=== PATIENT | male | born 1935 | race Caucasian/White ===

== ENCOUNTER → 2016-11-02 | Outpatient (CLI) | payer MEDICARE, BC ==
--- NOTE | 2016-11-02 12:59 | CT ---
EXAMINATION TYPE: CT lumbar spine wo con DATE OF EXAM: 11/02/2016 10:31 AM COMPARISON: Prior CT lumbar spine 2015 HISTORY: pain CT DLP: 2558.5 mGycm Automated exposure control for dose reduction was used. An unenhanced CT of the lumbar spine was performed. Bone and soft tissue window settings are submitt ed as well as coronal and sagittal reconstructions. FINDINGS: Scoliotic curvature is again seen, there is multilevel spondylosis as well as loss of disc height, as sociated vacuum phenomenon at L4-5 and L5-S1 and L2-3. L1-L2: Minimal posterior broad-based disc bulge causes slight anterior mass effect on the thecal sac. Scoliotic curvature contributes to cause left-sided foraminal encroachment. No significant central s tenosis. L2-L3: Circumferential extension of endplate disc complex results in foraminal encroachment greater o n the left is likely contributed by the scoliosis. Broad-based posterior disc bulge causes slight ant erior mass effect on the thecal sac. No significant central stenosis. L3-L4: Posterior broad-based disc bulge causes slight anterior mass effect on the thecal sac. There i s some left-sided foraminal encroachment due to lateral extension of endplate disc complex. No signif icant central stenosis. L4-L5: Broad-based posterior disc bulge causes anterior mass effect on the thecal sac. Facet arthropa thy with hypertrophy of ligamentum flavum results in mild central canal stenosis. There is some right -sided foraminal encroachment due to the spinal curvature. L5-S1: Posterior extension of endplate disc complex causes anterior mass effect on the thecal sac and possibly contacting the proximal S1 nerve roots. On mild central stenosis. Circumferential extension of endplate disc complex is results in bilateral foraminal encroachment. Nonobstructive punctate renal calcifications are present bilaterally measuring only 3 to 4 mm. IMPRESSION: No paraspinal masses are identified. Lumbar segments are intact. Degenerative disc disease, scoliosi s, facet arthropathy, multilevel foraminal encroachment and mild central canal stenosis L4-5. Nonobst ructive bilateral nephrolithiasis.
== END | disposition home or self-care (01) ==
LOC: RADCTMAIN 10:09
PROVIDERS: ATTEND Neurological Surgery
DX: M51.36 Other intervertebral disc degeneration, lumbar region (principal); M41.9 Scoliosis, unspecified; M46.96 Unspecified inflammatory spondylopathy, lumbar region; M48.06 Spinal stenosis, lumbar region
CPT/HCPCS: 72131

== ENCOUNTER → 2017-01-16 | Outpatient (CLI) | payer MEDICARE, BC ==
--- NOTE | 2017-01-16 13:33 | XR ---
EXAMINATION TYPE: XR chest 2V DATE OF EXAM: 01/16/2017 COMPARISON: Prior chest x-ray 09/18/[address] 09/18/2015 HISTORY: Preop, Z01.818 TECHNIQUE: Frontal and lateral views of the chest are obtained. FINDINGS: Patient is post median sternotomy. Intracardiac defibrillator lead present within the righ t ventricle. There is no pneumothorax or pleural effusion. Prominent lung volumes suggest underlying COPD. No evident pneumonia. The exam is rotated. There is improvement in the interstitium. IMPRESSION: No acute cardiopulmonary process. Cardiomegaly. Improvement in volume status. Emphysema. Additional findings above.
== END ==
LOC: RADXRMAIN 11:40
PROVIDERS: ATTEND Neurological Surgery
DX: Z01.818 Encounter for other preprocedural examination (principal)
CPT/HCPCS: 71020

== ENCOUNTER → 2017-06-05 | Outpatient (CLI) | payer MEDICARE, BC ==
--- NOTE | 2017-06-05 13:09 | CT ---
EXAMINATION TYPE: CT shoulder LT wo con DATE OF EXAM: 06/05/2017 COMPARISON: NONE HISTORY: Patient complains of increasing left shoulder pain and reduced range of motion. Patient lewis s not recall any injury. CT DLP: 732.1 mGycm Automated exposure control for dose reduction was used. Axial images were obtained at 3 mm thick sections. Reconstructed images in the coronal and sagittal p griffin are obtained at 2 mm thick sections. Three-D reconstructed images are performed. FINDINGS: The humeral head articulates with the glenoid. No acute fractures are evident. The acromioclavicular junction has minimal hypertrophy. There is narrowing of the joint space suggestive for osteoarthritic degenerative change. Electronic d evice overlies left chest. IMPRESSION: CHRONIC DEGENERATIVE CHANGES WITH OSTEOARTHRITIC DEGENERATIVE TYPE CHANGE AT THE GLENOHUMERAL JUNCTIO N.
== END | disposition home or self-care (01) ==
LOC: RADCTMAIN 12:05
PROVIDERS: ATTEND Orthopaedic Surgery
DX: M19.012 Primary osteoarthritis, left shoulder (principal)

== ENCOUNTER → 2017-08-21 | Outpatient (CLI) | payer MEDICARE, BC ==
[2017-08-21 12:30] LABS: Basophils # (A) 0.1 k/uL (0-0.2); Basophils % (A) 1 %; Eosinophils # (A) 0.2 k/uL (0-0.7); Eosinophils % (A) 1 %; HCT 34.9 % (39.0-53.0); Hypochromasia Slight; Lymphocytes # (A) 1.3 k/uL (1.0-4.8); Lymphocytes % (A) 9 %; MCHC 31.5 g/dL (31.0-37.0); MCV 92.3 fL (80.0-100.0); Mean Platelet Volume 8.7; Monocytes # (A) 1.6 k/uL (0-1.0); Monocytes % (A) 11 %; Neutrophils # (A) 10.2 k/uL (1.3-7.7); Neutrophils % (A) 74 %; Platelet Count 179 k/uL (150-450); RBC 3.78 m/uL (4.30-5.90); RDW 15.4 % (11.5-15.5); WBC 13.8 k/uL (3.8-10.6)
[2017-08-21 12:48] LABS: Albumin 3.9 g/dL (3.5-5.0); Calcium 9.3 mg/dL (8.4-10.2); Potassium 5.4 mmol/L (3.5-5.1); Total Bilirubin 0.5 mg/dL (0.2-1.3); Total Protein 6.3 g/dL (6.3-8.2)
== END | disposition home or self-care (01) ==
LOC: LABWHC1 12:00
PROVIDERS: ATTEND Nurse Practitioner Adult Health
DX: E78.2 Mixed hyperlipidemia (principal); I25.5 Ischemic cardiomyopathy; B89 Unspecified parasitic disease; I48.0 Paroxysmal atrial fibrillation
CPT/HCPCS: 36415; 80053; 80061; 84443; 85025

== ENCOUNTER → 2017-10-18 | Outpatient (CLI) | payer MEDICARE, BC ==
--- NOTE | 2017-10-20 07:23 | PE ---
EXAMINATION TYPE: PET CT fusion skull to thigh DATE OF EXAM: 10/18/2017 CLINICAL HISTORY: 82-year-old male restaging esophageal cancer. Patient with surgery in 2014. TECHNIQUE: Following the intravenous administration of 10.03 mCi of F-18 FDG, whole body images are performed from the skull base to the midthigh. Images are reviewed on the computer in the coronal, axial, and sagittal planes. Reconstructed rotating images are created on independent workstation and reviewed on the computer. A localization and attenuation correction CT is performed in conjunction with the PET scan. Glucose level: 99 mg/dL CTDI: 5.14 mGy DLP: 457.78 mGy-cm COMPARISON: CT abdomen and pelvis 04/25/2017. FINDINGS: PET: Physiologic pharyngeal uptake. Linear areas of left paraspinal muscular activity. Uptake in both shou lders likely on a degenerative basis. Physiologic FDG uptake within the chest. Heterogeneous liver uptake likely normal variation. Average liver SUV 3.1. Nonspecific focus of fat stranding in the left upper quadrant mesentery is stable from 04/25/2017 and shows no FDG uptake. Variable mild to moderate bowel uptake likely physiologic muscular activity. Mild uptake associated with chronic anterior abdominal wall thickening especially along the lower pel vis related to mesh repair and scarring. There is focal activity at the hamstrings origins and at the gluteal insertion as well as the right r ectus femoris origin. Variable bowel uptake likely Hologic muscular activity. Variable mild to moderate uptake throughout the spine likely on a degenerative basis. ATTENUATION CORRECTION CT: Visualized paranasal sinuses and mastoid air cells are well pneumatized. Suspect attenuation artifact s related to extensive dental amalgam. No cervical lymphadenopathy. Left anterior chest wall AICD generator with right ventricular lead. Median sternotomy wires are pres ent with post-CABG changes. Heart is mildly enlarged without pericardial effusion. Ascending aorta is ectatic at 3.7 cm. Mild atherosclerotic arch calcifications. Conventional arch vessel branching chloe sam. No thoracic lymphadenopathy. Prominent respiratory motion artifact in the lower lungs limiting assessment. Mild emphysema and mild diffuse bronchial wall thickening. No consolidation or pleural ef fusion. Cholecystectomy clips. Redemonstrated epigastric ventral abdominal wall hernia mesh repair. There is persistent hernia containing the gastric antrum that remains contained by anterior mesh material whic h is bulged forward. The hernia extends upward anterior to the xiphoid process. No obstructive or inf lammatory changes seen. A second hernia of the periumbilical region also remains enclosed by mesh material and contains short segment of small bowel. No dilated small bowel, free fluid, or free air. Punctate 2 mm nonobstructiv e right renal calculus. Scattered mild stool burden. Mild left hemicolonic diverticulosis especially in the sigmoid colon. Bladder is urine distended. Pelvic phleboliths. No abnormal fluid collection in the pelvis or pelvic lymphadenopathy. Prostate gland is enlarged measuring 5.3 cm wide. Bones: Mild degenerative changes at the hips. Additional degenerated dextro convex curvature of the l umbar spine. No osseous destructive process seen. IMPRESSION: 1. No findings of neoplastic recurrence along the esophagus and no evidence for metastatic disease. 2. Variable musculoskeletal FDG uptake in the pelvis relating to right-sided rectus femoris tendinosi s, bilateral gluteal insertional tendinosis/trochanteric bursitis, and hamstrings origin tendinosis. Also, mild to moderate degenerative uptake along the spine. 3. Incidental: Prior ventral abdominal wall mesh repair. There are 2 residual hernias, one in the epi gastric region and one in the periumbilical region containing a portion of the gastric antrum and a s mall bowel loop, respectively. These remain confined by anterior mesh material, unchanged from 017. 4. COPD with mild emphysema, sigmoid diverticulosis, and prostatomegaly (5.3 cm wide).
== END | disposition home or self-care (01) ==
LOC: RADPETMAIN 10:40
PROVIDERS: ATTEND Internal Medicine
DX: C15.9 Malignant neoplasm of esophagus, unspecified (principal); J43.9 Emphysema, unspecified; K57.30 Diverticulosis of large intestine without perforation or abscess without bleeding; N40.0 Benign prostatic hyperplasia without lower urinary tract symptoms; K44.9 Diaphragmatic hernia without obstruction or gangrene; K42.9 Umbilical hernia without obstruction or gangrene
CPT/HCPCS: 78815; A9552

== ENCOUNTER 2017-10-22 19:07 | Emergency (ER) | payer MEDICARE, BC ==
[2017-10-22 19:21] VITALS: RESP 18; TEMP 97.6
--- NOTE | 2017-10-22 20:18 | ED ---
ENT HPI - General Chief complaint: Dental/Oral Stated complaint: Blood coming from mouth Time Seen by Provider: 10/22/17 19:23 Source: patient, RN notes reviewed Mode of arrival: ambulatory Limitations: no limitations - History of Present Illness Initial comments: This is an 82-year-old male who presents to the emergency department with chief complaint of blood coming from the mouth. Patient states that at 4:30 he developed some bleeding in his mouth. He states that he spit it out into a napkin and then it continued to drain out onto his shirt. Patient denies any recent dental procedures or tooth pain. He states that when he spit the blood he noticed some clots. He does admit to being on Eliquis. Has no other complaints. Denies fever, chills, chest pain, shortness of breath, abdominal pain, nausea or vomiting, constipation or diarrhea, dysuria or hematuria, numbness or tingling, headache or vision changes. - Related Data Home Medications Medication Instructions Recorded Confirmed Loratadine [Claritin] 10 mg PO DAILY 11/18/13 10/22/17 Montelukast Sodium [Singulair] 10 mg PO HS 11/18/13 10/22/17 Simvastatin [Zocor] 20 mg PO HS 11/18/13 10/22/17 Cholecalciferol [Vitamin D3] 2,000 unit PO DAILY 09/18/15 10/22/17 Fenofibrate,Micronized 134 mg PO DAILY 09/18/15 10/22/17 [Fenofibrate] Furosemide [Lasix] 20 mg PO DAILY 09/18/15 10/22/17 Lansoprazole 30 mg PO HS 09/18/15 10/22/17 Aspirin EC [Ecotrin Low Dose] 81 mg PO HS 06/19/16 10/22/17 Carvedilol [Coreg] 6.25 mg PO BID 06/19/16 10/22/17 Hydrocodone/Acetaminophen [[place] 1 tab PO Q6H PRN 06/19/16 10/22/17 10-325] Folic Acid 1 mg PO DAILY 04/25/17 10/22/17 Docusate [Colace] 100 mg PO DAILY 06/14/17 10/22/17 Spironolactone [Aldactone] 25 mg PO DAILY 06/14/17 10/22/17 Amiodarone [Cordarone] 400 mg PO DAILY 10/22/17 10/22/17 Levothyroxine Sodium [Synthroid] 100 mcg PO DAILY 10/22/17 10/22/17 Previous Rx's Medication Instructions Recorded Ramipril [Altace] 5 mg PO DAILY #30 cap 11/09/14 Apixaban [Eliquis] 5 mg PO BID #60 tab 06/19/17 Allergies Allergy/AdvReac Type Severity Reaction Status Date / Time lorazepam [From Ativan] AdvReac Intermediate agitated Verified 10/22/17 19:45 Review of Systems ROS Statement: Those systems with pertinent positive or pertinent negative responses have been documented in the HPI. ROS Other: All systems not noted in ROS Statement are negative. Past Medical History Past Medical History: Asthma, Blood Disorder, Coronary Artery Disease (CAD), Cancer, Heart Failure, GERD/Reflux, Hyperlipidemia, Hypertension, Myocardial Infarction ([place]), Sleep Apnea/CPAP/BIPAP, Supraventricular Tachycardia (SVT), Vascular Disorder Additional Past Medical History / Comment(s): PEG pt uses no device, ischemic cardiomyopathy, decreased circulation to legs, esophageal cancer with surgery, paroxysmal SVT, anemia, diverticular dx, hiatal hernia, chronic low baci pain especially if stands/sits too long, abdominal cellulitis, skin cancer with removal. Last Myocardial Infarction Date:: 1994 History of Any Multi-Drug Resistant Organisms: MRSA Date of last positivie culture/infection: 2012 (per patient MRSA 4 to 5 years ago) MDRO Source:: Unknown Past Surgical History: AICD, Appendectomy, Bowel Resection, Cholecystectomy, Coronary Bypass/CABG, Heart Catheterization, Hernia Repair Additional Past Surgical History / Comment(s): Bowel resections x 2 for obstructions, AICD/pacer, 4vessel CABG, laser spine surgery to low back, colonoscopies, benign polypectomy, multiple abdominal hernia repairs, EGDs q 3 months, abdominal wall seroma removed, skin cancer removals. Past Anesthesia/Blood Transfusion Reactions: No Reported Reaction Type of Cardiac Device: Permanent Pacemaker, AICD Device Placement Date:: 2010 Past Psychological History: No Psychological Hx Reported Smoking Status: Former smoker Past Alcohol Use History: None Reported Past Drug Use History: None Reported - Past Family History Father Family Medical History: Myocardial Infarction ([place]) Additional Family Medical History / Comment(s): Father of a [place] at the age of 73 yrs. Mother Family Medical History: CVA/TIA Additional Family Medical History / Comment(s): Mother of a CVA in her early 80s. General Exam - General Exam Comments Initial Comments: General: Awake and alert, well-developed; in no apparent distress. Pleasant and cooperative. is at bedside. HEENT: Head atraumatic, normocephalic. Pupils are equal, round and reactive to light. Extraocular movements intact. Oropharynx moist without erythema or exudate. Small superficial abrasion noted on hard palate directly behind teeth #8 and 9. This area is actively bleeding. Neck: Supple. Normal ROM. Cardiovascular: Regular rate and rhythm. No murmurs, rubs or gallops. Chest symmetrical. Respiratory: Lungs clear to auscultation bilaterally. No wheezes, rales or rhonchi. Normal respiratory effort with no use of accessory muscles. Musculoskeletal: Normal ROM, no tenderness bilateral upper and lower extremities. Ambulating normally. Skin: [place], warm and dry without rashes or lesions. Neurological: Alert and oriented x3. CN II-XII grossly intact. Speech is fluent and answers are appropriate. No focal neuro deficits. Psychiatric: Normal mood and affect. No overt signs of depression or anxiety noted. Limitations: no limitations Course Vital Signs 10/22/17 19:18 Temperature 97.6 F Pulse Rate 67 Respiratory 18 Rate Blood Pressure 110/57 O2 Sat by Pulse 96 Oximetry Medical Decision Making - Medical Decision Making This is an 82-year-old male who is currently on Elquis who presents to the emergency department with chief complaint of mouth bleeding. On physical examination, there is a small superficial abrasion on the hard palate of patient 's mouth. Firm pressure was applied for 15 minutes and bleeding did stop. I provided patient with gauze as well as recommendation to use a tea bag if bleeding does recur. Patient's vital signs are stable and he is in no acute distress. He will be discharged home at this time. He is in agreement and voices understanding. All questions were answered. Disposition Clinical Impression: Abrasion of oral cavity Disposition: HOME SELF-CARE Condition: Good Instructions: Abrasion (ED), Blood Thinners (ED) Additional Instructions: If bleeding recurs, please hold firm pressure to the site of bleeding for 10-15 minutes. May also use a tea bag. Please follow up with primary care provider within 1-2 days. Return to emergency department if symptoms should worsen or any concerns arise. Referrals: Michael Menon MD [Primary Care Provider] - 1-2 days Time of Disposition: 20:34
[2017-10-22 20:59] VITALS: BP 119/63; PULSE 66
== END 2017-10-22 20:58 | disposition home or self-care (01) ==
LOC: EC 19:07
DX: S00.512A Abrasion of oral cavity, initial encounter (principal); J45.909 Unspecified asthma, uncomplicated; I25.10 Atherosclerotic heart disease of native coronary artery without angina pectoris; I11.0 Hypertensive heart disease with heart failure; I50.9 Heart failure, unspecified; E78.5 Hyperlipidemia, unspecified; K21.9 Gastro-esophageal reflux disease without esophagitis; I10 Essential (primary) hypertension; I25.2 Old myocardial infarction; G47.30 Sleep apnea, unspecified; D64.9 Anemia, unspecified; Z87.891 Personal history of nicotine dependence; Z79.82 Long term (current) use of aspirin; Z79.01 Long term (current) use of anticoagulants; Z79.899 Other long term (current) drug therapy; Z88.8 Allergy status to other drugs, medicaments and biological substances
CPT/HCPCS: 99282

== ENCOUNTER → 2017-11-13 | Outpatient (CLI) | payer MEDICARE, BC ==
--- NOTE | 2017-11-13 19:51 | CT ---
EXAMINATION TYPE: CT lumbar spine wo con DATE OF EXAM: 11/13/2017 7:25 PM COMPARISON: 11/02/2016 HISTORY: Low back pain and bilateral leg numbness. CT DLP: 1944 mGycm Automated exposure control for dose reduction was used. Unenhanced CT of the lumbar spine was performed. Bone and soft tissue window settings are submitted as well as coronal and sagittal reconstructions. There is a upper lumbar mild dextroscoliosis. There is a lower lumbar mild levoscoliosis. There is de generative disc space narrowing throughout the lumbar spine with spurring of the endplates. There is no compression fracture. There is multilevel hypertrophic facet arthropathy. I see no significant spi nal stenosis. There is developmentally adequate spinal canal. There is posterior endplate spur format ion throughout the lumbar spine without significant encroachment on the spinal canal. There is narrow ing of the right side L4-5 neural foramen due to lateral disc herniation. There is also narrowing of L2-3 neural foramen on the left side due to lateral disc herniation. There is no lumbar paraspinal ma ss. Sacroiliac joints are intact. I see no focal bone destruction.. IMPRESSION: Multilevel spondylosis. Scoliotic deformity. Lateral disc herniations as above with neural foraminal impingement. No fracture. No significant change compared to old exam.
== END | disposition home or self-care (01) ==
LOC: RADCTMAIN 18:48
PROVIDERS: ATTEND Physical Medicine & Rehabilitation
DX: M51.16 Intervertebral disc disorders with radiculopathy, lumbar region (principal); M47.26 Other spondylosis with radiculopathy, lumbar region; M41.26 Other idiopathic scoliosis, lumbar region
CPT/HCPCS: 72131

== ENCOUNTER 2017-12-09 04:56 | Inpatient (IN) | payer MEDICARE, BC ==
[2017-12-09] MEDS ORDERED: methylPREDNISolone SOD SUCCI 125 MG/2 ML VIAL IV STA (04:58)
[2017-12-09] MEDS ORDERED: IPRATROPIUM 0.5 MG/2.5 ML NEBU INHALATION STA (04:58)
[2017-12-09] MEDS ORDERED: ALBUTEROL NEBULIZED 2.5 MG/3 ML INHALATION STA (04:58)
[2017-12-09] MEDS ORDERED: FUROSEMIDE 10 MG/ML 4 ML VIAL IV STA (05:04)
[2017-12-09 05:30] LABS: INR 1.3 (<1.2); Partial Thromboplastin Time 25.8 sec (22.0-30.0); Prothrombin Time 12.6 sec (9.0-12.0)
[2017-12-09 05:32] LABS: Anisocytosis Slight; HCT 30.8 % (39.0-53.0); HGB 9.6 gm/dL (13.0-17.5); Hypochromasia Moderate; MCH 27.8 pg (25.0-35.0); MCHC 31.1 g/dL (31.0-37.0); MCV 89.5 fL (80.0-100.0); Mean Platelet Volume 8.2; Platelet Count 143 k/uL (150-450); RBC 3.44 m/uL (4.30-5.90); RDW 16.2 % (11.5-15.5)
[2017-12-09 05:41] LABS: Albumin 3.8 g/dL (3.5-5.0); Calcium 9.1 mg/dL (8.4-10.2); Magnesium 1.6 mg/dL (1.6-2.3); Total Bilirubin 0.5 mg/dL (0.2-1.3); Total Protein 6.1 g/dL (6.3-8.2)
[2017-12-09 06:03] LABS: Creatine Kinase MB 0.8 ng/mL (0.0-2.4); Troponin I 0.02 ng/mL (0.000-0.034)
--- NOTE | 2017-12-09 06:13 | XR ---
EXAM: XR Chest, 1 View CLINICAL HISTORY: ITS.REASON XR Reason: Pain TECHNIQUE: Frontal view of the chest. COMPARISON: Chest x-ray dated 06/16/2017. FINDINGS: Lungs: Mild bilateral interstitial prominence suspicious for edema. There is also a more focal patchy opacity in the right middle lobe that may represent pneumonia. Pleural space: Unremarkable. No pneumothorax. Heart: Moderate cardiomegaly. Mediastinum: Unremarkable. Bones/joints: Prior sternotomy. Vasculature: Mild calcification of the aortic arch. Tubes, lines and devices: Single lead AICD overlying the left chest wall. Upper abdomen: Worsened asymmetric elevation of the right hemidiaphragm. IMPRESSION: Mild bilateral interstitial prominence suspicious for edema. There is also a more focal patchy opacity in the right middle lobe that may represent pneumonia.
--- NOTE | 2017-12-09 06:44 | ED ---
General Adult HPI - General Chief complaint: Shortness of Breath Stated complaint: SOB Time Seen by Provider: 12/09/17 04:57 Source: patient, RN notes reviewed, old records reviewed Mode of arrival: wheelchair Limitations: no limitations - History of Present Illness Initial comments: This is a 82-year-old male the ER for evaluation, mild distress secondary to shortness of breath. Patient states he's having difficulty breathing, denies chest pain no travel history, patient does have recent hospitalization and multiple recent hospitalizations. States is at his doctor's earlier today hasn' t difficulty with ambulation secondary to shortness of breath otherwise is doing okay. Patient denies any chest pain. His DL medication as prescribed. Denies fever. - Related Data Home Medications Medication Instructions Recorded Confirmed Loratadine [Claritin] 10 mg PO DAILY 11/18/13 10/22/17 Montelukast Sodium [Singulair] 10 mg PO HS 11/18/13 10/22/17 Simvastatin [Zocor] 20 mg PO HS 11/18/13 10/22/17 Cholecalciferol [Vitamin D3] 2,000 unit PO DAILY 09/18/15 10/22/17 Fenofibrate,Micronized 134 mg PO DAILY 09/18/15 10/22/17 [Fenofibrate] Furosemide [Lasix] 20 mg PO DAILY 09/18/15 10/22/17 Lansoprazole 30 mg PO HS 09/18/15 10/22/17 Aspirin EC [Ecotrin Low Dose] 81 mg PO HS 06/19/16 10/22/17 Carvedilol [Coreg] 6.25 mg PO BID 06/19/16 10/22/17 Hydrocodone/Acetaminophen [[place] 1 tab PO Q6H PRN 06/19/16 10/22/17 10-325] Folic Acid 1 mg PO DAILY 04/25/17 10/22/17 Docusate [Colace] 100 mg PO DAILY 06/14/17 10/22/17 Spironolactone [Aldactone] 25 mg PO DAILY 06/14/17 10/22/17 Amiodarone [Cordarone] 400 mg PO DAILY 10/22/17 10/22/17 Levothyroxine Sodium [Synthroid] 100 mcg PO DAILY 10/22/17 10/22/17 Previous Rx's Medication Instructions Recorded Ramipril [Altace] 5 mg PO DAILY #30 cap 11/09/14 Apixaban [Eliquis] 5 mg PO BID #60 tab 06/19/17 Allergies Allergy/AdvReac Type Severity Reaction Status Date / Time lorazepam [From Ativan] AdvReac Intermediate agitated Verified 12/09/17 05:05 Review of Systems ROS Statement: Those systems with pertinent positive or pertinent negative responses have been documented in the HPI. ROS Other: All systems not noted in ROS Statement are negative. Past Medical History Past Medical History: Asthma, Blood Disorder, Coronary Artery Disease (CAD), Cancer, Heart Failure, GERD/Reflux, Hyperlipidemia, Hypertension, Myocardial Infarction ([place]), Sleep Apnea/CPAP/BIPAP, Supraventricular Tachycardia (SVT), Vascular Disorder Additional Past Medical History / Comment(s): PEG pt uses no device, ischemic cardiomyopathy, decreased circulation to legs, esophageal cancer with surgery, paroxysmal SVT, anemia, diverticular dx, hiatal hernia, chronic low baci pain especially if stands/sits too long, abdominal cellulitis, skin cancer with removal. Last Myocardial Infarction Date:: 1994 History of Any Multi-Drug Resistant Organisms: MRSA Date of last positivie culture/infection: 2012 (per patient MRSA 4 to 5 years ago) MDRO Source:: Unknown Past Surgical History: AICD, Appendectomy, Bowel Resection, Cholecystectomy, Coronary Bypass/CABG, Heart Catheterization, Hernia Repair Additional Past Surgical History / Comment(s): Bowel resections x 2 for obstructions, AICD/pacer, 4vessel CABG, laser spine surgery to low back, colonoscopies, benign polypectomy, multiple abdominal hernia repairs, EGDs q 3 months, abdominal wall seroma removed, skin cancer removals. Past Anesthesia/Blood Transfusion Reactions: No Reported Reaction Type of Cardiac Device: Permanent Pacemaker, AICD Device Placement Date:: 2010 Past Psychological History: No Psychological Hx Reported Smoking Status: Former smoker Past Alcohol Use History: None Reported Past Drug Use History: None Reported - Past Family History Father Family Medical History: Myocardial Infarction ([place]) Additional Family Medical History / Comment(s): Father of a [place] at the age of 73 yrs. Mother Family Medical History: CVA/TIA Additional Family Medical History / Comment(s): Mother of a CVA in her early 80s. General Exam Limitations: no limitations General appearance: alert, in no apparent distress, anxious, in distress Head exam: Present: atraumatic, normocephalic, normal inspection Eye exam: Present: normal appearance, PERRL, EOMI. Absent: scleral icterus, conjunctival injection, periorbital swelling ENT exam: Present: normal exam, mucous membranes moist Neck exam: Present: normal inspection. Absent: tenderness, meningismus, lymphadenopathy Respiratory exam: Present: respiratory distress, wheezes, rales, accessory muscle use, decreased breath sounds, prolonged expiratory. Absent: rhonchi, stridor Cardiovascular Exam: Present: regular rate, normal rhythm, normal heart sounds. Absent: systolic murmur, diastolic murmur, rubs, gallop, clicks GI/Abdominal exam: Present: soft, normal bowel sounds. Absent: distended, tenderness, guarding, rebound, rigid Extremities exam: Present: normal inspection, full ROM, normal capillary refill. Absent: tenderness, pedal edema, joint swelling, calf tenderness Back exam: Present: normal inspection Neurological exam: Present: alert, oriented X3, CN II-XII intact Psychiatric exam: Present: normal affect, normal mood Skin exam: Present: warm, dry, intact, normal color. Absent: rash Course Vital Signs 12/09/17 12/09/17 12/09/17 05:02 05:24 05:45 Temperature 97.5 F L Pulse Rate 91 96 96 Respiratory 28 H Rate Blood Pressure 136/69 O2 Sat by Pulse 91 L Oximetry 12/09/17 12/09/17 12/09/17 06:05 06:20 06:42 Temperature Pulse Rate 94 103 H 94 Respiratory 17 18 Rate Blood Pressure 128/91 133/64 O2 Sat by Pulse 98 94 L Oximetry - Reevaluation(s) Reevaluation #1: 12/09/17 07:00 Medical record and prior hospitalizations are reviewed 12/09/17 07:01 Patient does have mild improvement after prolonged breathing treatment EKG Findings - EKG Comments: EKG Findings:: EKG shows A. fib rate of 92, QRS 0.86, QTC 563 Medical Decision Making - Medical Decision Making 82 male the ER for evaluation positive pneumonia COPD and CHF, nosocomial pneumonia which she with appropriate antibiotics. Patient placed on breathing treatments and diuresis - Lab Data Result diagrams: 12/09/17 05:07 12/09/17 05:07 Lab Results 0512/09/17 12/09/17 Range/Units 05:07 05:07 05:07 WBC 18.5 H (3.8-10.6) k/uL RBC 3.44 L (4.30-5.90) m/uL Hgb 9.6 L (13.0-17.5) gm/dL Hct 30.8 L (39.0-53.0) % MCV 89.5 (80.0-100.0) fL MCH 27.8 (25.0-35.0) pg MCHC 31.1 (31.0-37.0) g/dL RDW 16.2 H (11.5-15.5) % Plt Count 143 L (150-450) k/uL Neutrophils % (Manual) 71 % Band Neutrophils % 2 % Lymphocytes % (Manual) 15 % Monocytes % (Manual) 13 % Neutrophils # (Manual) 13.50 H (1.3-7.7) k/uL Lymphocytes # (Manual) 2.78 (1.0-4.8) k/uL Monocytes # (Manual) 2.41 H (0-1.0) k/uL Nucleated RBCs 1 H (0-0) /100 WBC Polychromasia Present Hypochromasia Moderate Poikilocytosis (manual Present Anisocytosis Slight PT (9.0-12.0) sec INR (<1.2) APTT (22.0-30.0) sec Sodium 142 (137-145) mmol/L Potassium 4.0 (3.5-5.1) mmol/L Chloride 102 (98-107) mmol/L Carbon Dioxide 27 (22-30) mmol/L Anion Gap 13 mmol/L BUN 34 H (9-20) mg/dL Creatinine 1.03 (0.66-1.25) mg/dL Est GFR (CKD-EPI)AfAm 79 (>60 ml/min/1.73 sqM) Est GFR (CKD-EPI)NonAf 68 (>60 ml/min/1.73 sqM) Glucose 110 H (74-99) mg/dL Calcium 9.1 (8.4-10.2) mg/dL Magnesium 1.6 (1.6-2.3) mg/dL Total Bilirubin 0.5 (0.2-1.3) mg/dL AST 21 (17-59) U/L ALT 32 (21-72) U/L Alkaline Phosphatase 39 (38-126) U/L Total Creatine Kinase 20 L (55-170) U/L CK-MB (CK-2) 0.8 (0.0-2.4) ng/mL CK-MB (CK-2) Rel Index 4.0 Troponin I 0.020 (0.000-0.034) ng/mL NT-Pro-B Natriuret Pep pg/mL Total Protein 6.1 L (6.3-8.2) g/dL Albumin 3.8 (3.5-5.0) g/dL 12/09/17 12/09/17 Range/Units 05:07 05:07 WBC (3.8-10.6) k/uL RBC (4.30-5.90) m/uL Hgb (13.0-17.5) gm/dL Hct (39.0-53.0) % MCV (80.0-100.0) fL MCH (25.0-35.0) pg MCHC (31.0-37.0) g/dL RDW (11.5-15.5) % Plt Count (150-450) k/uL Neutrophils % (Manual) % Band Neutrophils % % Lymphocytes % (Manual) % Monocytes % (Manual) % Neutrophils # (Manual) (1.3-7.7) k/uL Lymphocytes # (Manual) (1.0-4.8) k/uL Monocytes # (Manual) (0-1.0) k/uL Nucleated RBCs (0-0) /100 WBC Polychromasia Hypochromasia Poikilocytosis (manual Anisocytosis PT 12.6 H (9.0-12.0) sec INR 1.3 H (<1.2) APTT 25.8 (22.0-30.0) sec Sodium (137-145) mmol/L Potassium (3.5-5.1) mmol/L Chloride (98-107) mmol/L Carbon Dioxide (22-30) mmol/L Anion Gap mmol/L BUN (9-20) mg/dL Creatinine (0.66-1.25) mg/dL Est GFR (CKD-EPI)AfAm (>60 ml/min/1.73 sqM) Est GFR (CKD-EPI)NonAf (>60 ml/min/1.73 sqM) Glucose (74-99) mg/dL Calcium (8.4-10.2) mg/dL Magnesium (1.6-2.3) mg/dL Total Bilirubin (0.2-1.3) mg/dL AST (17-59) U/L ALT (21-72) U/L Alkaline Phosphatase (38-126) U/L Total Creatine Kinase (55-170) U/L CK-MB (CK-2) (0.0-2.4) ng/mL CK-MB (CK-2) Rel Index Troponin I (0.000-0.034) ng/mL NT-Pro-B Natriuret Pep 77721 pg/mL Total Protein (6.3-8.2) g/dL Albumin (3.5-5.0) g/dL - Radiology Data Radiology results: report reviewed (Chest x-ray positive for CHF. Pneumonia), image reviewed Critical Care Time Critical Care Time: Yes Total Critical Care Time: 31 Disposition Clinical Impression: Dyspnea, COPD exacerbation, Congestive heart failure, Acute exacerbation of chronic obstructive airways disease, Nosocomial pneumonia Disposition: ADMITTED IP TO THIS HOSP Condition: Fair Referrals: Michael Menon MD [Primary Care Provider] - 1-2 days
[2017-12-09 06:55] LABS: Band Neutrophils % 2 %; Neutrophils % (M) 71 %; Nucleated Red Blood Cells 1 /100 WBC (0-0); Total Cells Counted 200
[2017-12-09 06:56] LABS: Lymphocytes # (M) 2.78 k/uL (1.0-4.8); Monocytes # (M) 2.41 k/uL (0-1.0); Polychromasia Present; WBC 18.5 k/uL (3.8-10.6)
[2017-12-09 06:57] LABS: Poikilocytosis (M) Present
[2017-12-09] MEDS ORDERED: PIPERACILLIN-TAZOBACTAM 3.375 GM in DEXTROSE/WATER 1 50ML.BAG IVPB STA (06:57)
[2017-12-09] MEDS ORDERED: PNEUMONIA PROTOCOL UTILIZED 1 EACH MISC PO PRN (06:57)
[2017-12-09] MEDS ORDERED: LEVOFLOXACIN 750MG-D5W PMX 750 MG in DEXTROSE/WATER 1 150ML.BAG IVPB STA (06:57)
[2017-12-09] MEDS: IPRATROPIUM-ALBUTEROL 3 ML NEB INHALATION SCH ×4 (08:18→19:37)
[2017-12-09] MEDS: FUROSEMIDE 10 MG/ML 4 ML VIAL IV SCH (09:42)
[2017-12-09] MEDS: PIPERACILLIN-TAZOBACTAM 3.375 GM in DEXTROSE/WATER 1 50ML.BAG IVPB SCH (15:33)
--- NOTE | 2017-12-09 16:08 | P.CRDCN ---
History of Present Illness History of present illness: Mr. 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 He follows with Dr. Nicholson in the office. We have been asked to see him consultation. He states he was recently discharged from [facility] for shortness of breath, those details are somewhat confusing, those records have been requested. He states his breathing is still labored on exertion with significant swelling in his legs. He is seen resting on the stretcher in the ED in no acute distress. He has been started on IV antibiotics for possible pneumonia on chest xray as well as IV lasix and breathing treatments. EKG on arrival reveals atrial fibrillation with controlled ventricular response with left bundle branch block. Chest x-ray reveals mild interstitial prominence suspicious for edema with more focal patchy of pacing the right middle lobe that may represent pneumonia. Laboratory data reviewed, WBC 18.5, hgb 9.6, plt 143, sodium 142, potassium 4.0 , creatinine 1.03, magnesium 1.6, pro-BNP 22,700, cardiac enzymes negative x2. Current cardiac medications include simvastatin 20 mg daily, lasix 20 mg BID, fenofibrate 234 mg daily, coreg 6.25 mg BID, eliquis 5 mg BID and amiodarone 200 mg BID. Most recent echocardiogram from 05/2017 reveals severely impaired LV systolic function with EF 20-25%. Review of Systems At the time of my exam: CONSTITUTIONAL: Denies fever. Denies chills. EYES: Denies blurred vision. Denies vision changes. Denies eye pain. EARS, NOSE, MOUTH & THROAT: Denies headache. Denies sore throat. Denies ear pain. CARDIOVASCULAR: Denies chest pain. Complains of exertional shortness of breath. Denies orthopnea. Denies PND. Denies palpitations. RESPIRATORY: Denies cough. GASTROINTESTINAL: Denies abdominal pain. Denies diarrhea. Denies constipation. Denies nausea. Denies vomiting. MUSCULOSKELETAL: Denies myalgias. INTEGUMENTARY: Denies pruitis. Denies rash. NEUROLOGIC: Denies numbness. Denies tingling. Denies weakness. PSYCHIATRIC: Denies anxiety. Denies depression. ENDOCRINE: Denies fatigue. Denies weight change. Denies polydipsia. Denies polyurina. GENITOURINARY: Denies burning, hematuria or urgency with micturation. HEMATOLOGIC: Denies history of anemia. Denies bleeding. Past Medical History Past Medical History: Asthma, Blood Disorder, Coronary Artery Disease (CAD), Cancer, Heart Failure, GERD/Reflux, Hyperlipidemia, Hypertension, Myocardial Infarction ([place]), Sleep Apnea/CPAP/BIPAP, Supraventricular Tachycardia (SVT), Vascular Disorder Additional Past Medical History / Comment(s): PEG pt uses no device, ischemic cardiomyopathy, decreased circulation to legs, esophageal cancer with surgery, paroxysmal SVT, anemia, diverticular dx, hiatal hernia, chronic low back pain, abdominal cellulitis, skin cancer with removal. Last Myocardial Infarction Date:: 1994 History of Any Multi-Drug Resistant Organisms: MRSA Date of last positivie culture/infection: 2012 (per patient MRSA 4 to 5 years ago) MDRO Source:: Unknown Past Surgical History: AICD, Appendectomy, Bowel Resection, Cholecystectomy, Coronary Bypass/CABG, Heart Catheterization, Hernia Repair Additional Past Surgical History / Comment(s): Bowel resections x 2 for obstructions, AICD/pacer, 4vessel CABG, laser spine surgery to low back, colonoscopies, benign polypectomy, multiple abdominal hernia repairs, EGDs q 3 months, abdominal wall seroma removed, skin cancer removals. Past Anesthesia/Blood Transfusion Reactions: No Reported Reaction Type of Cardiac Device: Permanent Pacemaker, AICD Device Placement Date:: 2010 Past Psychological History: No Psychological Hx Reported Additional Psychological History / Comment(s): Pt resides with his spouse of 8 yrs. He occasionally uses a rolling walker with a seat. He drives. Smoking Status: Former smoker Past Alcohol Use History: None Reported Additional Past Alcohol Use History / Comment(s): Pt quit smoking in 1994. He smoked heavily for 30 plus yrs. Past Drug Use History: None Reported - Past Family History Father Family Medical History: Myocardial Infarction ([place]) Additional Family Medical History / Comment(s): Father of a [place] at the age of 73 yrs. Mother Family Medical History: CVA/TIA Additional Family Medical History / Comment(s): Mother of a CVA in her early 80s. Medications and Allergies Home Medications Medication Instructions Recorded Confirmed Type Loratadine [Claritin] 10 mg PO DAILY 11/18/13 12/09/17 History Montelukast Sodium [Singulair] 10 mg PO HS 11/18/13 12/09/17 History Simvastatin [Zocor] 20 mg PO HS 11/18/13 12/09/17 History Cholecalciferol [Vitamin D3] 2,000 unit PO DAILY 09/18/15 12/09/17 History Fenofibrate,Micronized 134 mg PO DAILY 09/18/15 12/09/17 History [Fenofibrate] Furosemide [Lasix] 20 mg PO BID 09/18/15 12/09/17 History Lansoprazole 30 mg PO HS 09/18/15 12/09/17 History Aspirin EC [Ecotrin Low Dose] 81 mg PO HS 06/19/16 12/09/17 History Carvedilol [Coreg] 6.25 mg PO BID 06/19/16 12/09/17 History Hydrocodone/Acetaminophen [[place] 1 tab PO Q6H PRN 06/19/16 12/09/17 History 10-325] Folic Acid 1 mg PO DAILY 04/25/17 12/09/17 History Docusate [Colace] 100 mg PO DAILY 06/14/17 12/09/17 History Apixaban [Eliquis] 5 mg PO BID #60 tab 06/19/17 12/09/17 Rx Amiodarone [Cordarone] 200 mg PO BID 10/22/17 12/09/17 History Levothyroxine Sodium [Synthroid] 100 mcg PO DAILY 10/22/17 12/09/17 History Ipratropium-Albuterol Nebulize 3 ml INHALATION RT-BID 12/09/17 12/09/17 History [Duoneb 0.5 mg-3 mg/3 ml Soln] Allergies Allergy/AdvReac Type Severity Reaction Status Date / Time lorazepam [From Ativan] AdvReac Intermediate agitated Verified 12/09/17 07:18 Physical Exam Vitals: Vital Signs Temp Pulse Pulse Resp BP BP Pulse Ox 12/09/17 12:15 63 20 131/66 97 12/09/17 11:28 71 12/09/17 11:20 81 12/09/17 09:53 80 22 121/76 97 12/09/17 08:29 85 12/09/17 08:18 80 12/09/17 06:42 94 18 133/64 94 L 12/09/17 06:20 103 H 12/09/17 06:05 94 17 128/91 98 12/09/17 05:45 96 12/09/17 05:24 96 12/09/17 05:02 97.5 F L 91 28 H 136/69 91 L Intake and Output 12/09/17 12/09/17 12/09/17 06:59 14:59 22:59 Other: Voiding Method Toilet Urinal # Voids 2 Weight 118.841 kg Blood pressure 107/51 heart rate 78 afebrile maintaining oxygen saturation on 2 liters nasal cannula GENERAL: This is a 82-year-old male in no apparent distress at the time of my examination. HEENT: Head is atraumatic, normocephalic. Pupils are equal, round. Sclerae anicteric. Conjunctivae are clear. Mucous membranes of the mouth are moist. Neck is supple. There is no jugular venous distention. No carotid bruit is heard. LUNGS: Bibasilar rales with scattered rhonchi, no wheezes. No chest wall tenderness is noted on palpation or with deep breathing. HEART: Irregular rate and rhythm with systolic ejection murmur at the base, no rubs or gallops. S1 and S2 heard. ABDOMEN: Soft, nontender. Bowel sounds are heard. No organomegaly noted. EXTREMITIES: Significant 2+ pitting pedal edema, bilaterally. No calf tenderness noted. VASCULAR: Radial and dorsalis pedis pulses palpated, no evidence of clubbing. NEUROLOGIC: Patient is awake, alert and oriented x3. Results 12/09/17 05:07 12/09/17 05:07 Cardiac Enzymes 12/09/17 12/09/17 12/09/17 Range/Units 05:07 05:07 13:01 AST 21 (17-59) U/L CK-MB (CK-2) 0.8 (0.0-2.4) ng/mL Troponin I 0.020 0.018 (0.000-0.034) ng/mL Coagulation 12/09/17 Range/Units 05:07 PT 12.6 H (9.0-12.0) sec APTT 25.8 (22.0-30.0) sec CBC 12/09/17 Range/Units 05:07 WBC 18.5 H (3.8-10.6) k/uL RBC 3.44 L (4.30-5.90) m/uL Hgb 9.6 L (13.0-17.5) gm/dL Hct 30.8 L (39.0-53.0) % Plt Count 143 L (150-450) k/uL Comprehensive Metabolic Panel 12/09/17 Range/Units 05:07 Sodium 142 (137-145) mmol/L Potassium 4.0 (3.5-5.1) mmol/L Chloride 102 (98-107) mmol/L Carbon Dioxide 27 (22-30) mmol/L BUN 34 H (9-20) mg/dL Creatinine 1.03 (0.66-1.25) mg/dL Glucose 110 H (74-99) mg/dL Calcium 9.1 (8.4-10.2) mg/dL AST 21 (17-59) U/L ALT 32 (21-72) U/L Alkaline Phosphatase 39 (38-126) U/L Total Protein 6.1 L (6.3-8.2) g/dL Albumin 3.8 (3.5-5.0) g/dL Current Medications Generic Name Dose Route Start Last Admin Trade Name Freq PRN Reason Stop Dose Admin Albuterol/Ipratropium 3 ml 12/09/17 12:00 12/09/17 11:17 Duoneb 0.5 Mg-3 Mg/3 Ml Soln INHALATION 3 ml RT-QID RAMESH Administration Furosemide 40 mg 12/09/17 18:00 12/09/17 09:42 Lasix IV 40 mg Q12H RAMESH Administration Levofloxacin 750 mg/ IV 150 mls @ 100 mls/hr 12/10/17 07:00 Solution IVPB 12/22/17 07:01 Q24H RAMESH Piperacillin/Tazobactam/ 50 mls @ 12.5 mls/hr 12/09/17 16:00 12/09/17 15:33 Dextrose 3.375 gm/ IV Solution IVPB 12/19/17 16:01 12.5 mls/hr Q8HR RAMESH Administration Miscellaneous Information 1 each 12/09/17 06:57 Pneumonia Protocol Utilized PO ONCE PRN Per Protocol Intake and Output 12/09/17 12/09/1712/09/18 06:59 14:59 22:59 Other: Voiding Method Toilet Urinal # Voids 2 Weight 118.841 kg 12/09/17 05:07 12/09/17 05:07 Assessment and Plan Assessment: ASSESSMENT 1. Acute on chronic systolic heart failure, pro-BNP 22,700. 2. Pneumonia 3. Ischemic cardiomyopathy, EF 20%. s/p ICD implantation 4. History of coronary artery disease s/p bypass grafting 5. 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 Hypertension 7. Dyslipidemia 8. Leukocytosis PLAN Obtain records from recent hospitalization. Agree with diuresis with IV lasix. Resume amiodarone, eliquis, aspirin, coreg and simvastatin at home doses. Recommend choosing a different antibiotic secondary to the possible QT prolongation with amiodarone and levofloxacin. Follow renal function and electrolytes in the morning while on IV lasix. Last office visit he was on aldactone, which seems to have been discontinued possibly at last hospital visit. Will wait to review those records before resuming. Obtain daily weights along with strict intake and output measurements to accurately assess diuresis. We will continue to follow him closely during this hospitalization. Thank you kindly for this consultation. Nurse Practitioner note has been reviewed, I agree with a documented findings and plan of care. Patient was seen and examined.
[2017-12-09] MEDS ORDERED: HYDROcodone/APAP 10-325MG 1 EACH TAB PO PRN (17:54)
[2017-12-09] MEDS: CARVEDILOL 6.25 MG TAB PO SCH (18:07)
[2017-12-09] MEDS: PANTOPRAZOLE 40 MG TABLET PO SCH (21:06)
[2017-12-09] MEDS: MONTELUKAST 10 MG TAB PO SCH (21:06)
[2017-12-09] MEDS: ATORVASTATIN 10 MG TAB PO SCH (21:16)
[2017-12-09] MEDS: ASPIRIN 81 MG PO SCH (21:16)
[2017-12-09] MEDS: AMIODARONE 200 MG TAB PO SCH (21:16)
[2017-12-09] MEDS: APIXABAN 5 MG TAB PO SCH (21:16)
--- NOTE | 2017-12-09 22:48 | HP ---
HISTORY AND PHYSICAL CHIEF COMPLAINT: 82-year-old white male admitted with shortness of breath. Possible systolic heart failure versus pneumonia. Started on broad-spectrum antibiotics of Zosyn and IV Lasix. Difficulty with ambulation, shortness of breath and altered mental status. He denies fever. HOME MEDICATIONS: Include: 1. Claritin. 2. Singular. 3. Zocor. 4. Vitamin D3. 5. Fenofibrate. 6. Lasix. 7. . 8. Aspirin. 9. Coreg. 10.[place]. 11.Folic acid. 12.Colace. 13.Aldactone. 14.Cordarone. 15.Synthroid. ALLERGIES: LORAZEPAM. REVIEW OF SYSTEMS: Fourteen point review of systems negative except for mentioned in HPI. PAST MEDICAL HISTORY: Asthma, bipolar disorder, coronary artery disease, cancer, heart failure, GERD, dyslipidemia, hypertension, myocardial infarction, sleep apnea, SVT vascular disorder, esophageal cancer, paroxysmal SVT, coronary artery disease, diverticular disease, hiatal hernia, chronic low back pain, abdominal cellulitis, skin cancer removal, MRSA. PAST SURGICAL HISTORY: AICD, appendectomy, bowel resection, cholecystectomy, CABG surgery, heart catheterization, hernia repair, bowel section x2, 4 vessel CABG, colonoscopies, benign polypectomy, multiple abdominal hernia repairs, EGDs x3, permanent pacemaker, AICD. FAMILY HISTORY: Father myocardial infarction age 73. Mother CVA/TIA in her early 80s. PHYSICAL EXAM: White male, BMI is over 40. CARDIOVASCULAR: S1, S2. Lungs scattered rhonchi and wheeze x4. Psych: Fair mood and affect. Vascular: Normal dorsalis pedis, posterior tibial, radial pulse. Hematology negative Homans. Lungs scattered rhonchi and wheeze. Back nontender. Psych: Fair mood and affect. SKIN: Warm and dry. Temp 97.5, pulse 91 to 96, respiratory 16 to 28, blood pressure 139/69, 91% on room air. EKG: atrial fibrillation. ASSESSMENT: 1. Nosocomial pneumonia. 2. Chronic obstructive pulmonary disease. 3. Systolic congestive heart failure. 4. Esophageal cancer. 5. Hypertension. 6. Obstructive sleep apnea. 7. Acute on chronic anemia. 8. Leukocytosis secondary to pneumonia. 9. Pancytopenia. Continue with IV Lasix and IV antibiotics. CT scan of the lungs will be done tonight without contrast. Continue current treatment with Cardiology and pulmonology on board. MMODL / IJN: [id number] /
[2017-12-09] MEDS: VANCOMYCIN 1,500 MG in SODIUM CHLORIDE 0.9% 250 ML IVPB SCH (23:39)
[2017-12-10] MEDS: PIPERACILLIN-TAZOBACTAM 3.375 GM in DEXTROSE/WATER 1 50ML.BAG IVPB SCH ×3 (02:06→16:06)
[2017-12-10] MEDS: LEVOTHYROXINE 100 MCG TAB PO SCH (06:07)
[2017-12-10] MEDS: FUROSEMIDE 10 MG/ML 4 ML VIAL IV SCH ×2 (06:07→17:04)
[2017-12-10] MEDS ORDERED: LEVOFLOXACIN 750MG-D5W PMX 750 MG in DEXTROSE/WATER 1 150ML.BAG IVPB SCH (07:00)
[2017-12-10] MEDS: IPRATROPIUM-ALBUTEROL 3 ML NEB INHALATION SCH ×5 (08:09→21:03)
[2017-12-10] MEDS: AMIODARONE 200 MG TAB PO SCH ×2 (08:14→20:32)
[2017-12-10] MEDS: FENOFIBRATE 160 MG TAB PO SCH (08:14)
[2017-12-10] MEDS: CARVEDILOL 6.25 MG TAB PO SCH ×2 (08:15→17:04)
[2017-12-10] MEDS: DOCUSATE 100 MG CAP PO SCH (08:15)
[2017-12-10] MEDS: CHOLECALCIFEROL 1,000 UNIT TAB PO SCH (08:15)
[2017-12-10] MEDS: APIXABAN 5 MG TAB PO SCH ×2 (08:15→20:32)
[2017-12-10] MEDS: FOLIC ACID 1 MG TAB PO SCH (08:15)
[2017-12-10] MEDS: LORATADINE 10 MG TAB PO SCH (08:15)
--- NOTE | 2017-12-10 08:25 | XR ---
EXAMINATION TYPE: XR chest 2V DATE OF EXAM: 12/10/2017 COMPARISON: Prior chest 12/09/2017 HISTORY: Pneumonia, history of COPD and CHF TECHNIQUE: Frontal and lateral views of the chest are obtained. FINDINGS: The interstitium is increased. Heart is enlarged. Pacemaker lead in the right ventricle is again noted. Patient is post median sternotomy. No pneumothorax or sizable pleural effusion. Patient is rotated. IMPRESSION: Correlate for pulmonary venous hypertension and interstitial edema.
--- NOTE | 2017-12-10 08:49 | CT ---
EXAMINATION TYPE: CT chest wo con DATE OF EXAM: 12/10/2017 COMPARISON: Prior chest x-ray dated same date 12/10/2017, CT chest 09/18/2015 HISTORY: Pneumonia, abnormal chest x-ray CT DLP: 747.7 mGycm. Automated Exposure Control for Dose Reduction was Utilized. TECHNIQUE: CT scan of the thorax is performed without IV contrast. FINDINGS: LUNGS: The lungs are remarkable for groundglass opacity bilaterally especially in the perihilar distr ibution, the interstitium is increased, interlobular septal pleural thickening is noted, small right pleural effusion noted. Some bronchial wall thickening also noted. Upper lobes show emphysematous kamran nges. Calcified granuloma present in the right lower lobe MEDIASTINUM: Lack of IV contrast is noted to limit evaluation for mediastinal and especially hilar ad enopathy. There are no definitive greater than 1 cm hilar or mediastinal lymph nodes, some calcified right hilar nodes are present. Heart is enlarged. There are extensive coronary artery calcifications. No pericardial effusion. Patient is post median sternotomy. Pacemaker is present with lead coursing into the right ventricle OTHER: Upper abdomen shows anterior abdominal wall hernia, in the subxiphoid location there is extens ion of the stomach to the level the skin surface superficial to the xiphoid, more inferiorly small vi wel loop is present within the abdominal wall hernia, surgical clips are also present. Nonobstructive calculus is associated with the left kidney. Some calcifications are present at the head of the panc reas. Patient is post cholecystectomy. IMPRESSION: Correlate for congestive heart failure. Small pleural effusion. Postop changes. Old granu lomatous disease. Coronary artery disease and cardiomegaly. Noncontrast exam. Additional findings abo ve.
[2017-12-10 09:12] LABS: Albumin 3.8 g/dL (3.5-5.0); Calcium 8.9 mg/dL (8.4-10.2); Potassium 3.6 mmol/L (3.5-5.1); Total Bilirubin 0.6 mg/dL (0.2-1.3); Total Protein 6.1 g/dL (6.3-8.2)
[2017-12-10 09:22] LABS: HCT 28.7 % (39.0-53.0); Hypochromasia Moderate; MCH 27.9 pg (25.0-35.0); MCHC 31.3 g/dL (31.0-37.0); MCV 89.3 fL (80.0-100.0); Mean Platelet Volume 8.7; Platelet Count 119 k/uL (150-450); RBC 3.22 m/uL (4.30-5.90); RDW 15.9 % (11.5-15.5); WBC 16.1 k/uL (3.8-10.6)
[2017-12-10 10:33] LABS: Band Neutrophils % 1 %; Lymphocytes # (M) 0.81 k/uL (1.0-4.8); Metamyelocytes # (M) 0.16 k/uL (0); Metamyelocytes % 1 %; Monocytes # (M) 1.93 k/uL (0-1.0); Neutrophils % (M) 82 %; Nucleated Red Blood Cells 0 /100 WBC (0-0); Total Cells Counted 200
[2017-12-10 10:34] LABS: Anisocytosis (M) Present; Poikilocytosis (M) Present
--- NOTE | 2017-12-10 11:20 | P.PN ---
Subjective Mr. 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 He follows with Dr. Nicholson in the office. We have been asked to see him consultation. He states he was recently discharged from [facility] for shortness of breath, those details are somewhat confusing, those records have been requested. He states his breathing is still labored on exertion with significant swelling in his legs. He is seen resting on the stretcher in the ED in no acute distress. He has been started on IV antibiotics for possible pneumonia on chest xray as well as IV lasix and breathing treatments. EKG on arrival reveals atrial fibrillation with controlled ventricular response with left bundle branch block. Chest x-ray reveals mild interstitial prominence suspicious for edema with more focal patchy of pacing the right middle lobe that may represent pneumonia. Laboratory data reviewed, WBC 18.5, hgb 9.6, plt 143, sodium 142, potassium 4.0 , creatinine 1.03, magnesium 1.6, pro-BNP 22,700, cardiac enzymes negative x2. Current cardiac medications include simvastatin 20 mg daily, lasix 20 mg BID, fenofibrate 234 mg daily, coreg 6.25 mg BID, eliquis 5 mg BID and amiodarone 200 mg BID. Most recent echocardiogram from 05/2017 reveals severely impaired LV systolic function with EF 20-25%. 12/10/2017 Mr. Haynes is seen and examined resting comfortably sitting up in the chair. Records obtained from recent hospitalization 11/28 at [facility] were reviewed. He underwent echocardiogram that revealed severely impaired LV systolic function with EF 20-25% with mild to moderate mitral regurgitation. Aldactone and lisinopril were discontinued at that time secondary to hyperkalemia. Telemetry tracings have been unremarkable. WBC 16.1, hgb 9.0, sodium 143, potassium 3.6, creatinine 1.02. Blood pressure 113/64 heart rate 74 afebrile and maintaining oxygen saturation on nasal cannula. Objective - Vital Signs Vital signs: Vital Signs Temp 97.8 F 12/10/17 07:00 Pulse 72 12/10/17 08:47 Resp 18 12/10/17 08:15 BP 113/64 12/10/17 07:00 Pulse Ox 97 12/10/17 07:00 Intake & Output 12/09/17 12/10/17 12/10/17 18:59 06:59 18:59 Intake Total 300 Output Total 400 Balance -400 300 Intake: Oral 300 Output: Urine 400 Other: Voiding Method Toilet Toilet Toilet Urinal Urinal Urinal # Voids 2 2 - Exam GENERAL: Well-appearing, well-nourished and in no acute distress. NECK: Supple without JVD or thyromegaly. LUNGS: Breath sounds clear to auscultation bilaterally. Respiration equal and unlabored. No wheezes, rales or rhonchi. HEART: Irregular rate and rhythm with systolic ejection murmur at the base, no rubs or gallops. S1 and S2 heard. EXTREMITIES: Normal range of motion, 2+ pitting bilateral lower extremity edema. No clubbing or cyanosis. Peripheral pulses intact. - Labs CBC & Chem 7: 12/10/17 07:56 12/10/17 07:56 Labs: Abnormal Lab Results - Last 24 Hours (Table) 12/10/17 12/10/17 Range/Units 07:56 07:56 WBC 16.1 H (3.8-10.6) k/uL RBC 3.22 L (4.30-5.90) m/uL Hgb 9.0 L (13.0-17.5) gm/dL Hct 28.7 L (39.0-53.0) % RDW 15.9 H (11.5-15.5) % Plt Count 119 L (150-450) k/uL Neutrophils # (Manual) 13.30 H (1.3-7.7) k/uL Lymphocytes # (Manual) 0.81 L (1.0-4.8) k/uL Monocytes # (Manual) 1.93 H (0-1.0) k/uL Metamyelocytes # (Man) 0.16 H (0) k/uL Carbon Dioxide 31 H (22-30) mmol/L BUN 38 H (9-20) mg/dL Alkaline Phosphatase 34 L (38-126) U/L Total Protein 6.1 L (6.3-8.2) g/dL Microbiology - Last 24 Hours (Table) 12/09/17 06:07 Blood Culture - Preliminary Blood No Growth after 24 hours Assessment and Plan Assessment: ASSESSMENT 1. Acute on chronic systolic heart failure, pro-BNP 22,700. 2. Pneumonia 3. Ischemic cardiomyopathy, EF 20%. s/p ICD implantation 4. History of coronary artery disease s/p bypass grafting 5. 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 Hypertension 7. Dyslipidemia 8. Leukocytosis PLAN Continue current medical regimen. Accurate intake and output imperative to assess diuresis with daily weights. Follow renal function and electrolytes. Nurse Practitioner note has been reviewed, I agree with a documented findings and plan of care. Patient was seen and examined.
[2017-12-10] MEDS: VANCOMYCIN 1,500 MG in SODIUM CHLORIDE 0.9% 250 ML IVPB SCH ×2 (11:25→23:22)
[2017-12-10 11:42] VITALS: BMI 33.1
[2017-12-10 11:44] LABS: Glucose,Whole Blood 103 mg/dL (75-99)
--- NOTE | 2017-12-10 11:46 | P.CNPUL ---
History of Present Illness Consult date: 12/09/17 (Late entry note) Reason for consult: dyspnea, cough, pneumonia Chief complaint: Worsening shortness of breath for last 2-3 days History of present illness: 82-year-old morbidly obese male seen and evaluated examined in the emergency department for increasing acute onset of shortness of breath for 2-3 day duration along with that patient noted increased swelling of the lower extremity patient also have dry nonproductive cough as well patient came into the hospital for further evaluation found to have very high BNP abnormal chest x -ray was asked to evaluate this patient further, review of the data revealed that patient has history of chronic systolic heart failure related to ischemic cardiomyopathy with history of CABG and AICD placement in the past, patient also has chronic atrial fibrillation the patient has a history of significant smoking in the past quit back in hours smoked one to 2 packs per day for over 30 years has chronic ongoing shortness of breath which is been going on for several years, on specific questioning denies any seizure-like to a loss of consciousness or hemiparesis, denies any chest pain does have cough which is mostly dry and nonproductive denies any bowel or bladder dysfunction did notice increased swelling of the lower extremity in the last few days as well Review of Systems All systems: negative Past Medical History Past Medical History: Asthma, Blood Disorder, Coronary Artery Disease (CAD), Cancer, Heart Failure, GERD/Reflux, Hyperlipidemia, Hypertension, Myocardial Infarction (MN), Sleep Apnea/CPAP/BIPAP, Supraventricular Tachycardia (SVT), Vascular Disorder Additional Past Medical History / Comment(s): PEG pt uses no device, ischemic cardiomyopathy, decreased circulation to legs, esophageal cancer with surgery, paroxysmal SVT, anemia, diverticular dx, hiatal hernia, chronic low back pain, abdominal cellulitis, skin cancer with removal. Last Myocardial Infarction Date:: 1994 History of Any Multi-Drug Resistant Organisms: MRSA Date of last positivie culture/infection: 2012 (per patient MRSA 4 to 5 years ago) MDRO Source:: Unknown Past Surgical History: AICD, Appendectomy, Bowel Resection, Cholecystectomy, Coronary Bypass/CABG, Heart Catheterization, Hernia Repair Additional Past Surgical History / Comment(s): Bowel resections x 2 for obstructions, AICD/pacer, 4vessel CABG, laser spine surgery to low back, colonoscopies, benign polypectomy, multiple abdominal hernia repairs, EGDs q 3 months, abdominal wall seroma removed, skin cancer removals. Past Anesthesia/Blood Transfusion Reactions: No Reported Reaction Type of Cardiac Device: Permanent Pacemaker, AICD Device Placement Date:: 2010 Past Psychological History: No Psychological Hx Reported Additional Psychological History / Comment(s): Pt resides with his spouse of 8 yrs. He occasionally uses a rolling walker with a seat. He drives. Smoking Status: Former smoker Past Alcohol Use History: None Reported Additional Past Alcohol Use History / Comment(s): Pt quit smoking in 1994. He smoked heavily for 30 plus yrs. Past Drug Use History: None Reported - Past Family History Father Family Medical History: Myocardial Infarction (MN) Additional Family Medical History / Comment(s): Father of a MN at the age of 73 yrs. Mother Family Medical History: CVA/TIA Additional Family Medical History / Comment(s): Mother of a CVA in her early 80s. Medications and Allergies Home Medications Medication Instructions Recorded Confirmed Type Loratadine [Claritin] 10 mg PO DAILY 11/18/13 12/09/17 History Montelukast Sodium [Singulair] 10 mg PO HS 11/18/13 12/09/17 History Simvastatin [Zocor] 20 mg PO HS 11/18/13 12/09/17 History Cholecalciferol [Vitamin D3] 2,000 unit PO DAILY 09/18/15 12/09/17 History Fenofibrate,Micronized 134 mg PO DAILY 09/18/15 12/09/17 History [Fenofibrate] Furosemide [Lasix] 20 mg PO BID 09/18/15 12/09/17 History Lansoprazole 30 mg PO HS 09/18/15 12/09/17 History Aspirin EC [Ecotrin Low Dose] 81 mg PO HS 06/19/16 12/09/17 History Carvedilol [Coreg] 6.25 mg PO BID 06/19/16 12/09/17 History Hydrocodone/Acetaminophen [Marshall 1 tab PO Q6H PRN 06/19/16 12/09/17 History 10-325] Folic Acid 1 mg PO DAILY 04/25/17 12/09/17 History Docusate [Colace] 100 mg PO DAILY 06/14/17 12/09/17 History Apixaban [Eliquis] 5 mg PO BID #60 tab 06/19/17 12/09/17 Rx Amiodarone [Cordarone] 200 mg PO BID 10/22/17 12/09/17 History Levothyroxine Sodium [Synthroid] 100 mcg PO DAILY 10/22/17 12/09/17 History Ipratropium-Albuterol Nebulize 3 ml INHALATION RT-BID 12/09/17 12/09/17 History [Duoneb 0.5 mg-3 mg/3 ml Soln] Allergies Allergy/AdvReac Type Severity Reaction Status Date / Time lorazepam [From Ativan] AdvReac Intermediate agitated Verified 12/09/17 07:18 Physical Exam Vitals: Vital Signs Temp Pulse Pulse Resp BP Pulse Ox 12/10/17 08:47 72 12/10/17 08:31 72 12/10/17 08:15 18 12/10/17 07:00 97.8 F 74 18 113/64 97 12/09/17 23:00 97.7 F 69 18 106/58 95 12/09/17 19:49 70 12/09/17 19:37 68 96 12/09/17 16:33 66 12/09/17 16:27 63 12/09/17 15:00 97.5 F L 78 20 107/51 93 L 12/09/17 12:15 63 20 131/66 97 Intake and Output 12/09/17 12/10/17 12/10/17 22:59 06:59 14:59 Intake Total 300 Output Total 400 300 Balance -400 0 Intake: Oral 300 Output: Urine 400 300 Other: Voiding Method Toilet Toilet Urinal Urinal # Voids 2 Weight 117 kg - Constitutional General appearance: disheveled, mild distress, morbidly obese - EENT Narrow oropharynx Eyes: PERRLA, poor dentition, normal appearance Ears: bilateral: normal - Neck Neck veins are prominent no carrot bruits present no significant lymphadenopathy Neck: normal ROM Thyroid: bilateral: normal size - Respiratory Respiratory: bilateral: diminished, rales, rhonchi, wheezing (Predominantly during expiratory phase), negative: dullness - Cardiovascular Rhythm: regularly irregular Heart sounds: normal: S1, S2 - Gastrointestinal General gastrointestinal: distended, normal bowel sounds, soft, ventral hernia - Integumentary Integumentary: normal turgor - Neurologic Neurologic: CNII-XII intact - Musculoskeletal Musculoskeletal: gait normal, generalized weakness, strength equal bilaterally - Psychiatric Psychiatric: A&O x's 3, appropriate affect, intact judgment & insight Results - Laboratory Findings CBC and BMP: 12/10/17 07:56 12/10/17 07:56 PT/INR, D-dimer PT 12.6 sec (9.0-12.0) H 12/09/17 05:07 INR 1.3 (<1.2) H 12/09/17 05:07 Abnormal lab findings: Abnormal Labs 12/09/17 12/09/17 12/09/17 05:07 05:07 05:07 WBC 18.5 H RBC 3.44 L Hgb 9.6 L Hct 30.8 L RDW 16.2 H Plt Count 143 L Neutrophils # (Manual) 13.50 H Lymphocytes # (Manual) Monocytes # (Manual) 2.41 H Metamyelocytes # (Man) Nucleated RBCs 1 H PT INR Carbon Dioxide BUN 34 H Glucose 110 H Alkaline Phosphatase Total Creatine Kinase 20 L Total Protein 6.1 L 12/09/17 12/10/17 12/10/17 05:07 07:56 07:56 WBC 16.1 H RBC 3.22 L Hgb 9.0 L Hct 28.7 L RDW 15.9 H Plt Count 119 L Neutrophils # (Manual) 13.30 H Lymphocytes # (Manual) 0.81 L Monocytes # (Manual) 1.93 H Metamyelocytes # (Man) 0.16 H Nucleated RBCs PT 12.6 H INR 1.3 H Carbon Dioxide 31 H BUN 38 H Glucose Alkaline Phosphatase 34 L Total Creatine Kinase Total Protein 6.1 L - Diagnostic Findings Chest x-ray: report reviewed, image reviewed (Cardiomegaly with bilateral interstitial edema and small bilateral pleural effusion cannot be excluded patchy infiltrate noted occult pneumonia cannot be excluded) Assessment and Plan Assessment: Acute hypoxic respirator failure Acute exacerbation of CHF related to acute on chronic systolic heart failure Bilateral patchy pneumonia Baseline COPD Likely obstructive sleep apnea and sleep disorder breathing Diffuse coronary artery disease disease with ischemic cardiomyopathy Severe morbid obesity Chronic atrial fibrillation Dyslipidemia, hypertension, hypertensive cardiovascular disease Leukocytosis likely related to multifactorial as well as pneumonia Plan: Gentle diuresis Broad-spectrum antibiotics, for now we'll continue vancomycin and Zosyn Bronchodilator Continuation of home medications We will hold on IV steroids Patient will benefit from computed tomography scan of the chest to differentiate pneumonia from congestive heart failure Optimize cardiovascular therapy Deep breathing exercises incentive spirometry Recommendations pending plan of care as per clinical response of the patient Time with Patient: Greater than 30
--- NOTE | 2017-12-10 11:52 | P.PN ---
Subjective Progress Note Date: 12/10/17 Principal diagnosis: Acute exacerbation of CHF related to acute on chronic systolic heart failure, bilateral patchy interstitial pneumonia, acute on chronic systolic heart failure related to ischemic cardiomyopathy, coronary artery disease, chronic atrial fibrillation, dyslipidemia, hypertension hypertensive cardiovascular disease, severe morbid obesity, leukocytosis, Sirs-like process versus sepsis 12/10/2017, patient seen eval examined during the rounds on fourth floor from respiratory standpoint slightly better but is still have significant degree or shortness of breath especially during activity and exertion patient remains on supplemental oxygen still have for the cough which is mostly dry nonproductive his influenza A and B were both negative, no significant sputum production is seen, patient has been on breathing treatments tolerating very well, computed tomography scan of the chest and radiographic studies along with laboratory data reviewed, white cell count continue to improve progressively was slowed , Computed tomography scan of the chest revealed presence of bilateral patchy interstitial infiltrate, renal functions remain stable with diuresis 82-year-old morbidly obese male seen and evaluated examined in the emergency department for increasing acute onset of shortness of breath for 2-3 day duration along with that patient noted increased swelling of the lower extremity patient also have dry nonproductive cough as well patient came into the hospital for further evaluation found to have very high BNP abnormal chest x -ray was asked to evaluate this patient further, review of the data revealed that patient has history of chronic systolic heart failure related to ischemic cardiomyopathy with history of CABG and AICD placement in the past, patient also has chronic atrial fibrillation the patient has a history of significant smoking in the past quit back in hours smoked one to 2 packs per day for over 30 years has chronic ongoing shortness of breath which is been going on for several years, on specific questioning denies any seizure-like to a loss of consciousness or hemiparesis, denies any chest pain does have cough which is mostly dry and nonproductive denies any bowel or bladder dysfunction did notice increased swelling of the lower extremity in the last few days as well Objective - Vital Signs Vital signs: Vital Signs Temp 97.8 F 12/10/17 07:00 Pulse 72 12/10/17 08:47 Resp 18 12/10/17 08:15 BP 113/64 12/10/17 07:00 Pulse Ox 97 12/10/17 07:00 Intake & Output 12/09/17 12/10/17 12/10/17 18:59 06:59 18:59 Intake Total 300 Output Total 400 300 Balance -400 0 Weight 117 kg Intake: Oral 300 Output: Urine 400 300 Other: Voiding Method Toilet Toilet Toilet Urinal Urinal Urinal # Voids 2 2 - Exam - Constitutional General appearance: disheveled, mild distress, morbidly obese - EENT Narrow oropharynx Eyes: PERRLA, poor dentition, normal appearance Ears: bilateral: normal - Neck Neck veins are prominent no carrot bruits present no significant lymphadenopathy Neck: normal ROM Thyroid: bilateral: normal size - Respiratory Respiratory: bilateral: diminished, rales, rhonchi, wheezing (Predominantly during expiratory phase), negative: dullness - Cardiovascular Rhythm: regularly irregular Heart sounds: normal: S1, S2, and bilateral lower extremity chronic edema +2 - Gastrointestinal General gastrointestinal: distended, normal bowel sounds, soft, ventral hernia - Integumentary Integumentary: normal turgor - Neurologic Neurologic: CNII-XII intact - Musculoskeletal Musculoskeletal: gait normal, generalized weakness, strength equal bilaterally - Psychiatric Psychiatric: A&O x's 3, appropriate affect, intact judgment & insight - Labs CBC & Chem 7: 12/10/17 07:56 12/10/17 07:56 Labs: Abnormal Lab Results - Last 24 Hours (Table) 12/10/17 12/10/17 12/10/17 Range/Units 07:56 07:56 11:35 WBC 16.1 H (3.8-10.6) k/uL RBC 3.22 L (4.30-5.90) m/uL Hgb 9.0 L (13.0-17.5) gm/dL Hct 28.7 L (39.0-53.0) % RDW 15.9 H (11.5-15.5) % Plt Count 119 L (150-450) k/uL Neutrophils # (Manual) 13.30 H (1.3-7.7) k/uL Lymphocytes # (Manual) 0.81 L (1.0-4.8) k/uL Monocytes # (Manual) 1.93 H (0-1.0) k/uL Metamyelocytes # (Man) 0.16 H (0) k/uL Carbon Dioxide 31 H (22-30) mmol/L BUN 38 H (9-20) mg/dL POC Glucose (mg/dL) 103 H (75-99) mg/dL Alkaline Phosphatase 34 L (38-126) U/L Total Protein 6.1 L (6.3-8.2) g/dL Microbiology - Last 24 Hours (Table) 12/09/17 06:07 Blood Culture - Preliminary Blood No Growth after 24 hours Assessment and Plan Assessment: Acute hypoxic respirator failure Acute exacerbation of CHF related to acute on chronic systolic heart failure Bilateral patchy pneumonia Baseline COPD Likely obstructive sleep apnea and sleep disorder breathing Diffuse coronary artery disease disease with ischemic cardiomyopathy Severe morbid obesity Chronic atrial fibrillation Dyslipidemia, hypertension, hypertensive cardiovascular disease Leukocytosis likely related to multifactorial as well as pneumonia Plan: Gentle diuresis Broad-spectrum antibiotics, for now we'll continue vancomycin and Zosyn, hopefully next 24-48 hours we'll simplified to simple by mouth antibiotics Bronchodilator Continuation of home medications We will hold on IV steroids Patient will benefit from computed tomography scan of the chest to differentiate pneumonia from congestive heart failure Optimize cardiovascular therapy Deep breathing exercises incentive spirometry Recommendations pending plan of care as per clinical response of the patient Time with Patient: Greater than 30
[2017-12-10] MEDS: ATORVASTATIN 10 MG TAB PO SCH (20:32)
[2017-12-10] MEDS: ASPIRIN 81 MG PO SCH (20:32)
[2017-12-10] MEDS: PANTOPRAZOLE 40 MG TABLET PO SCH (20:32)
[2017-12-10] MEDS: MONTELUKAST 10 MG TAB PO SCH (20:32)
--- NOTE | 2017-12-10 23:25 | PN ---
PROGRESS NOTE SUBJECTIVE: An 82-year-old white male admitted with acute systolic congestive heart failure and elevated white count and possible pneumonia with elevated neutrophil count. He has been coughing up green-yellow phlegm. Started on broad-spectrum pneumonia protocol as he recently got out of the other hospital. I assumed he has healthcare acquired pneumonia. CT scans were reviewed. His white count is down from 16 to 14. when he was admitted. CARDIOVASCULAR: S1 to S2. LUNGS: Scattered rhonchi and wheeze. EXTREMITIES: 2 to 3+ pedal edema. HEMATOLOGIC: Negative Chen's. 5.2. ASSESSMENT: Acute systolic congestive heart failure, pulmonary fibrosis/chronic obstructive pulmonary disease, ventral hernia, esophageal cancer, hypertension, status post lumbar laminectomy, generalized weakness. PLAN: Continue PT and OT. Continue IV antibiotics. Possible rehab facility will be needed. The patient is improved. Otherwise try to switch to oral antibiotics in the next day or 2 and send him home. MMODL / IJN: [id number] /
[2017-12-11] MEDS: PIPERACILLIN-TAZOBACTAM 3.375 GM in DEXTROSE/WATER 1 50ML.BAG IVPB SCH ×3 (02:43→15:08)
[2017-12-11] MEDS: LEVOTHYROXINE 100 MCG TAB PO SCH (06:31)
[2017-12-11] MEDS: FUROSEMIDE 10 MG/ML 4 ML VIAL IV SCH ×2 (06:31→17:11)
[2017-12-11] MEDS: CARVEDILOL 6.25 MG TAB PO SCH ×2 (07:57→17:13)
[2017-12-11] MEDS: DOCUSATE 100 MG CAP PO SCH (07:58)
[2017-12-11] MEDS: FENOFIBRATE 160 MG TAB PO SCH (07:58)
[2017-12-11] MEDS: AMIODARONE 200 MG TAB PO SCH ×2 (07:58→20:11)
[2017-12-11] MEDS: APIXABAN 5 MG TAB PO SCH ×2 (07:58→20:11)
[2017-12-11] MEDS: CHOLECALCIFEROL 1,000 UNIT TAB PO SCH (07:58)
[2017-12-11] MEDS: LORATADINE 10 MG TAB PO SCH (07:59)
[2017-12-11 08:07] LABS: Anisocytosis Slight; Basophils # (A) 0.1 k/uL (0-0.2); Basophils % (A) 0 %; Eosinophils # (A) 0.2 k/uL (0-0.7); Eosinophils % (A) 2 %; HCT 27.6 % (39.0-53.0); HGB 8.7 gm/dL (13.0-17.5); Hypochromasia Moderate; Lymphocytes # (A) 1.1 k/uL (1.0-4.8); Lymphocytes % (A) 9 %; MCH 28.1 pg (25.0-35.0); MCHC 31.5 g/dL (31.0-37.0); MCV 89.4 fL (80.0-100.0); Mean Platelet Volume 8.1; Monocytes # (A) 1.7 k/uL (0-1.0); Monocytes % (A) 14 %; Neutrophils # (A) 8.7 k/uL (1.3-7.7); Neutrophils % (A) 72 %; Platelet Count 118 k/uL (150-450); RBC 3.08 m/uL (4.30-5.90); WBC 12.2 k/uL (3.8-10.6)
[2017-12-11 08:19] LABS: Albumin 3.2 g/dL (3.5-5.0); Calcium 8.8 mg/dL (8.4-10.2); Potassium 3.5 mmol/L (3.5-5.1); Total Bilirubin 0.5 mg/dL (0.2-1.3); Total Protein 5.3 g/dL (6.3-8.2)
[2017-12-11] MEDS: IPRATROPIUM-ALBUTEROL 3 ML NEB INHALATION SCH ×4 (09:02→19:42)
[2017-12-11] MEDS: FOLIC ACID 1 MG TAB PO SCH (11:06)
[2017-12-11] MEDS: VANCOMYCIN 1,500 MG in SODIUM CHLORIDE 0.9% 250 ML IVPB SCH ×2 (11:06→22:42)
--- NOTE | 2017-12-11 14:07 | P.PN ---
Subjective Mr. Haynes is a pleasant 82-year-old male past medical history significant for coronary artery disease s/p bypass grafting, ischemic cardiomyopathy s/p ICD placement ([employer]), paroxysmal atrial fibrillation on armature connector anti-coagulation recently diagnosed in May 2017, hypertension, dyslipidemia and systolic heart failure. He follows with Dr. Nicholson in the office. We have been asked to see him consultation. He states he was recently discharged from [facility] for shortness of breath, those details are somewhat confusing, those records have been requested. He states his breathing is still labored on exertion with significant swelling in his legs. He is seen resting on the stretcher in the ED in no acute distress. He has been started on IV antibiotics for possible pneumonia on chest xray as well as IV lasix and breathing treatments. EKG on arrival reveals atrial fibrillation with controlled ventricular response with left bundle branch block. Chest x-ray reveals mild interstitial prominence suspicious for edema with more focal patchy of pacing the right middle lobe that may represent pneumonia. Laboratory data reviewed, WBC 18.5, hgb 9.6, plt 143, sodium 142, potassium 4.0 , creatinine 1.03, magnesium 1.6, pro-BNP 22,700, cardiac enzymes negative x2. Current cardiac medications include simvastatin 20 mg daily, lasix 20 mg BID, fenofibrate 234 mg daily, coreg 6.25 mg BID, eliquis 5 mg BID and amiodarone 200 mg BID. Most recent echocardiogram from 05/2017 reveals severely impaired LV systolic function with EF 20-25%. 12/10/2017 Mr. Haynes is seen and examined resting comfortably sitting up in the chair. Records obtained from recent hospitalization 11/[address] [facility] were reviewed. He underwent echocardiogram that revealed severely impaired LV systolic function with EF 20-25% with mild to moderate mitral regurgitation. Aldactone and lisinopril were discontinued at that time secondary to hyperkalemia. Telemetry tracings have been unremarkable. WBC 16.1, hgb 9.0, sodium 143, potassium 3.6, creatinine 1.02. Blood pressure 113/64 heart rate 74 afebrile and maintaining oxygen saturation on nasal cannula. 12/11/2017 Mr. Haynes is seen and examined resting comfortably in bed. He states he seems to be feeling better however he had an episode of dizziness last night while getting up and moving around to the bathroom. His blood pressure has been running on the lower side with systolic as low as 92. He is consistently in atrial fibrillation with controlled ventricular response. His edema is improving in the right leg with ongoing to the left lower extremity. He is currently receiving amiodarone 200 mg BID, carvedilol 6.25 BID, lasix 40 mg IV BID. Laboratory data reviewed, WBC 12.2, hgb 8.7, plt 118, sodium 142, potassium 3.5, creatinine 1.08. Blood pressure currently 105/62 heart rate 84 afebrile and maintaining oxygen saturation on nasal cannula. Objective - Vital Signs Vital signs: Vital Signs Temp 98.5 F 12/11/17 06:39 Pulse 77 12/11/17 12:21 Resp 16 12/11/17 12:21 BP 105/62 12/11/17 06:39 Pulse Ox 95 12/11/17 09:03 Intake & Output 12/10/17 12/11/17 12/11/17 18:59 06:59 18:59 Intake Total 1950 350 Output Total 1999 1200 300 Balance -50 -850 -300 Weight 117 kg 118.5 kg Intake: Oral 1950 350 Output: Urine 1999 1200 300 Other: Voiding Method Toilet Toilet Urinal Urinal # Voids 3 # Bowel Movements 1 - Exam GENERAL: Well-appearing, well-nourished and in no acute distress. NECK: Supple without JVD or thyromegaly. LUNGS: Breath sounds clear to auscultation bilaterally. Respiration equal and unlabored. No wheezes, rales or rhonchi. HEART: Irregular rate and rhythm with systolic ejection murmur at the base, no rubs or gallops. S1 and S2 heard. EXTREMITIES: Normal range of motion, 2+ pitting edema to left lower extremity with some improvement and trace edema to right lower extremity. No clubbing or cyanosis. Peripheral pulses intact. - Labs CBC & Chem 7: 12/11/17 06:44 12/11/17 06:44 Labs: Abnormal Lab Results - Last 24 Hours (Table) 12/11/17 12/11/17 Range/Units 06:44 06:44 WBC 12.2 H (3.8-10.6) k/uL RBC 3.08 L (4.30-5.90) m/uL Hgb 8.7 L (13.0-17.5) gm/dL Hct 27.6 L (39.0-53.0) % RDW 16.0 H (11.5-15.5) % Plt Count 118 L (150-450) k/uL Neutrophils # 8.7 H (1.3-7.7) k/uL Monocytes # 1.7 H (0-1.0) k/uL Carbon Dioxide 33 H (22-30) mmol/L BUN 36 H (9-20) mg/dL AST 16 L (17-59) U/L Alkaline Phosphatase 32 L (38-126) U/L Total Protein 5.3 L (6.3-8.2) g/dL Albumin 3.2 L (3.5-5.0) g/dL Microbiology - Last 24 Hours (Table) 12/09/17 06:07 Blood Culture - Preliminary Blood No Growth after 48 hours 12/10/17 08:45 Gram Stain - Preliminary Sputum Assessment and Plan Assessment: ASSESSMENT 1. Acute on chronic systolic heart failure, pro-BNP 22,700. 2. Pneumonia 3. Ischemic cardiomyopathy, EF 20%. s/p ICD implantation 4. History of coronary artery disease s/p bypass grafting 5. Paroxysmal atrial fibrillation on [facility] anticoagulation with Eliquis 6. Hypertension 7. Dyslipidemia 8. Leukocytosis PLAN Obtain orthostatic blood pressure. HOld evening dose of IV lasix if orthostatic positive. Negative fluid balance with diuresis. Improvement in exertional shortness of breath. Transition to oral diuretics tomorrow if ongoing improvement noted. Accurate intake and output imperative to assess diuresis with daily weights. Follow renal function and electrolytes. Nurse Practitioner note has been reviewed, I agree with a documented findings and plan of care. Patient was seen and examined.
--- NOTE | 2017-12-11 16:33 | P.PN ---
Subjective Progress Note Date: 12/11/17 Principal diagnosis: Acute exacerbation of CHF related to acute on chronic systolic heart failure, bilateral patchy interstitial pneumonia, acute on chronic systolic heart failure related to ischemic cardiomyopathy, coronary artery disease, chronic atrial fibrillation, dyslipidemia, hypertension hypertensive cardiovascular disease, severe morbid obesity, leukocytosis, Sirs-like process versus sepsis 12/11/2017, patient seen eval examined during the rounds shortness of breath and cough significantly improved tolerating breathing treatments well patient has been diuresing well swelling in the lower extremity continued to improve denies any chest pain, sputum studies reviewed gram-negative diplococcus has been seen along with few gram-positive cocci final ID is pending, leukocytosis continued to improve, patient remain on broad-spectrum antibiotics with Zosyn and vancomycin 12/10/2017, patient seen eval examined during the rounds on fourth floor from respiratory standpoint slightly better but is still have significant degree or shortness of breath especially during activity and exertion patient remains on supplemental oxygen still have for the cough which is mostly dry nonproductive his influenza A and B were both negative, no significant sputum production is seen, patient has been on breathing treatments tolerating very well, computed tomography scan of the chest and radiographic studies along with laboratory data reviewed, white cell count continue to improve progressively was slowed , Computed tomography scan of the chest revealed presence of bilateral patchy interstitial infiltrate, renal functions remain stable with diuresis 82-year-old morbidly obese male seen and evaluated examined in the emergency department for increasing acute onset of shortness of breath for 2-3 day duration along with that patient noted increased swelling of the lower extremity patient also have dry nonproductive cough as well patient came into the hospital for further evaluation found to have very high BNP abnormal chest x -ray was asked to evaluate this patient further, review of the data revealed that patient has history of chronic systolic heart failure related to ischemic cardiomyopathy with history of CABG and AICD placement in the past, patient also has chronic atrial fibrillation the patient has a history of significant smoking in the past quit back in hours smoked one to 2 packs per day for over 30 years has chronic ongoing shortness of breath which is been going on for several years, on specific questioning denies any seizure-like to a loss of consciousness or hemiparesis, denies any chest pain does have cough which is mostly dry and nonproductive denies any bowel or bladder dysfunction did notice increased swelling of the lower extremity in the last few days as well Objective - Vital Signs Vital signs: Vital Signs Temp 98.3 F 12/11/17 13:30 Pulse 74 12/11/17 16:04 Resp 22 12/11/17 13:30 BP 104/69 12/11/17 13:32 Pulse Ox 99 12/11/17 13:30 Intake & Output 12/10/17 12/11/17 12/11/17 18:59 06:59 18:59 Intake Total 1950 350 Output Total 1999 1200 300 Balance -50 -850 -300 Weight 117 kg 118.5 kg Intake: Oral 1949 350 Output: Urine 1999 1200 300 Other: Voiding Method Toilet Toilet Urinal Urinal # Voids 3 # Bowel Movements 1 - Exam - Constitutional General appearance: disheveled, mild distress, morbidly obese - EENT Narrow oropharynx Eyes: PERRLA, poor dentition, normal appearance Ears: bilateral: normal - Neck Neck veins are prominent no carrot bruits present no significant lymphadenopathy Neck: normal ROM Thyroid: bilateral: normal size - Respiratory Respiratory: bilateral: diminished, rales, rhonchi, wheezing (Predominantly during expiratory phase), negative: dullness - Cardiovascular Rhythm: regularly irregular Heart sounds: normal: S1, S2, and bilateral lower extremity chronic edema +2 - Gastrointestinal General gastrointestinal: distended, normal bowel sounds, soft, ventral hernia - Integumentary Integumentary: normal turgor - Neurologic Neurologic: CNII-XII intact - Musculoskeletal Musculoskeletal: gait normal, generalized weakness, strength equal bilaterally - Psychiatric Psychiatric: A&O x's 3, appropriate affect, intact judgment & insight - Labs CBC & Chem 7: 12/11/17 06:44 12/11/17 06:44 Labs: Abnormal Lab Results - Last 24 Hours (Table) 12/11/17 12/11/17 Range/Units 06:44 06:44 WBC 12.2 H (3.8-10.6) k/uL RBC 3.08 L (4.30-5.90) m/uL Hgb 8.7 L (13.0-17.5) gm/dL Hct 27.6 L (39.0-53.0) % RDW 16.0 H (11.5-15.5) % Plt Count 118 L (150-450) k/uL Neutrophils # 8.7 H (1.3-7.7) k/uL Monocytes # 1.7 H (0-1.0) k/uL Carbon Dioxide 33 H (22-30) mmol/L BUN 36 H (9-20) mg/dL AST 16 L (17-59) U/L Alkaline Phosphatase 32 L (38-126) U/L Total Protein 5.3 L (6.3-8.2) g/dL Albumin 3.2 L (3.5-5.0) g/dL Microbiology - Last 24 Hours (Table) 12/10/17 08:45 Gram Stain - Preliminary Sputum 12/09/17 06:07 Blood Culture - Preliminary Blood No Growth after 48 hours Assessment and Plan Assessment: Acute hypoxic respirator failure Acute exacerbation of CHF related to acute on chronic systolic heart failure Bilateral patchy pneumonia mixed bacterial and/or or gram-negative there is some predominance of gram-positive cocci and gram-negative diplococci is seen him a final ID is pending Baseline COPD Likely obstructive sleep apnea and sleep disorder breathing Diffuse coronary artery disease disease with ischemic cardiomyopathy Severe morbid obesity Chronic atrial fibrillation Dyslipidemia, hypertension, hypertensive cardiovascular disease Leukocytosis likely related to multifactorial as well as pneumonia Plan: Gentle diuresis Broad-spectrum antibiotics, for now we'll continue vancomycin and Zosyn, awaiting final sputum culture results and report Bronchodilator Continuation of home medications We will hold on IV steroids Reviewed computed tomography scan of the chest Optimize cardiovascular therapy Deep breathing exercises incentive spirometry Recommendations pending plan of care as per clinical response of the patient Time with Patient: Greater than 30
[2017-12-11] MEDS: ATORVASTATIN 10 MG TAB PO SCH (20:10)
[2017-12-11] MEDS: MONTELUKAST 10 MG TAB PO SCH (20:11)
[2017-12-11] MEDS: PANTOPRAZOLE 40 MG TABLET PO SCH (20:11)
[2017-12-11] MEDS: ASPIRIN 81 MG PO SCH (20:11)
--- NOTE | 2017-12-11 21:41 | PN ---
PROGRESS NOTE SUBJECTIVE: An 82-year-old white male with systolic CHF, discussed with him possibly starting Entresto. He is improving. Pneumonia is improving. It will be my order for doxycycline for possible discharge home on doxycycline tomorrow. Other antibiotics will be discontinued. Vital signs are improving. Strength is improving. He is on 2L nasal cannula. Pulse is 74. CARDIOVASCULAR: S1, S2. LUNGS: Transmitted upper sounds. GI shows distended due to ventral hernia. HEMATOLOGY: 2-3+ pedal edema. ASSESSMENT: 1. Systolic congestive heart failure. 2. COPD. PLAN: Continue current treatment with oral antibiotics, Lasix, possible Entresto as an outpatient. Discharge home in the morning. MMODL / IJN: [id number] /
[2017-12-12] MEDS: PIPERACILLIN-TAZOBACTAM 3.375 GM in DEXTROSE/WATER 1 50ML.BAG IVPB SCH ×2 (02:04→08:17)
[2017-12-12 05:57] VITALS: TEMP 96.4
[2017-12-12 05:58] VITALS: BP 111/57
[2017-12-12] MEDS: LEVOTHYROXINE 100 MCG TAB PO SCH (06:27)
[2017-12-12] MEDS: IPRATROPIUM-ALBUTEROL 3 ML NEB INHALATION SCH ×2 (06:55→10:55)
--- NOTE | 2017-12-12 06:55 | P.PN ---
Subjective Progress Note Date: 12/12/17 Principal diagnosis: Acute exacerbation of CHF related to acute on chronic systolic heart failure, bilateral patchy interstitial pneumonia, acute on chronic systolic heart failure related to ischemic cardiomyopathy, coronary artery disease, chronic atrial fibrillation, dyslipidemia, hypertension hypertensive cardiovascular disease, severe morbid obesity, leukocytosis, Sirs-like process versus sepsis 12/12/2017, patient seen eval examined during the rounds clinically overall not much change breathing remains as stable though but get short of breath intermittently a continued to be on bronchodilators tolerating well final ID on the sputum culture however remains pending patient remains on broad-spectrum antibiotics as well as being diuresis as well, labs and medications reviewed from yesterday, today's labs are pending 12/11/2017, patient seen eval examined during the rounds shortness of breath and cough significantly improved tolerating breathing treatments well patient has been diuresing well swelling in the lower extremity continued to improve denies any chest pain, sputum studies reviewed gram-negative diplococcus has been seen along with few gram-positive cocci final ID is pending, leukocytosis continued to improve, patient remain on broad-spectrum antibiotics with Zosyn and vancomycin 12/10/2017, patient seen eval examined during the rounds on fourth floor from respiratory standpoint slightly better but is still have significant degree or shortness of breath especially during activity and exertion patient remains on supplemental oxygen still have for the cough which is mostly dry nonproductive his influenza A and B were both negative, no significant sputum production is seen, patient has been on breathing treatments tolerating very well, computed tomography scan of the chest and radiographic studies along with laboratory data reviewed, white cell count continue to improve progressively was slowed , Computed tomography scan of the chest revealed presence of bilateral patchy interstitial infiltrate, renal functions remain stable with diuresis 82-year-old morbidly obese male seen and evaluated examined in the emergency department for increasing acute onset of shortness of breath for 2-3 day duration along with that patient noted increased swelling of the lower extremity patient also have dry nonproductive cough as well patient came into the hospital for further evaluation found to have very high BNP abnormal chest x -ray was asked to evaluate this patient further, review of the data revealed that patient has history of chronic systolic heart failure related to ischemic cardiomyopathy with history of CABG and AICD placement in the past, patient also has chronic atrial fibrillation the patient has a history of significant smoking in the past quit back in hours smoked one to 2 packs per day for over 30 years has chronic ongoing shortness of breath which is been going on for several years, on specific questioning denies any seizure-like to a loss of consciousness or hemiparesis, denies any chest pain does have cough which is mostly dry and nonproductive denies any bowel or bladder dysfunction did notice increased swelling of the lower extremity in the last few days as well Objective - Vital Signs Vital signs: Vital Signs Temp 96.4 F L 12/12/17 05:45 Pulse 75 12/12/17 05:45 Resp 20 12/12/17 05:45 BP 111/57 12/12/17 05:45 Pulse Ox 93 L 12/12/17 05:45 Intake & Output 12/11/17 12/11/17 12/12/17 06:59 18:59 06:59 Intake Total 350 Output Total 1200 1800 Balance -850 -1800 Weight 118.5 kg 118 kg Intake: Oral 350 Output: Urine 1200 1800 Other: Voiding Method Toilet Toilet Urinal Urinal # Voids 5 # Bowel Movements 2 - Exam - Constitutional General appearance: disheveled, mild distress, morbidly obese - EENT Narrow oropharynx Eyes: PERRLA, poor dentition, normal appearance Ears: bilateral: normal - Neck Neck veins are prominent no carrot bruits present no significant lymphadenopathy Neck: normal ROM Thyroid: bilateral: normal size - Respiratory Respiratory: bilateral: diminished, rales, rhonchi, wheezing (Predominantly during expiratory phase), negative: dullness - Cardiovascular Rhythm: regularly irregular Heart sounds: normal: S1, S2, and bilateral lower extremity chronic edema +2 - Gastrointestinal General gastrointestinal: distended, normal bowel sounds, soft, ventral hernia - Integumentary Integumentary: normal turgor - Neurologic Neurologic: CNII-XII intact - Musculoskeletal Musculoskeletal: gait normal, generalized weakness, strength equal bilaterally - Psychiatric Psychiatric: A&O x's 3, appropriate affect, intact judgment & insight - Labs CBC & Chem 7: 12/11/17 06:44 12/11/17 06:44 Labs: Abnormal Lab Results - Last 24 Hours (Table) 12/11/17 12/11/17 Range/Units 06:44 06:44 WBC 12.2 H (3.8-10.6) k/uL RBC 3.08 L (4.30-5.90) m/uL Hgb 8.7 L (13.0-17.5) gm/dL Hct 27.6 L (39.0-53.0) % RDW 16.0 H (11.5-15.5) % Plt Count 118 L (150-450) k/uL Neutrophils # 8.7 H (1.3-7.7) k/uL Monocytes # 1.7 H (0-1.0) k/uL Carbon Dioxide 33 H (22-30) mmol/L BUN 36 H (9-20) mg/dL AST 16 L (17-59) U/L Alkaline Phosphatase 32 L (38-126) U/L Total Protein 5.3 L (6.3-8.2) g/dL Albumin 3.2 L (3.5-5.0) g/dL Microbiology - Last 24 Hours (Table) 12/10/17 08:45 Gram Stain - Preliminary Sputum 12/09/17 06:07 Blood Culture - Preliminary Blood No Growth after 48 hours Assessment and Plan Assessment: Acute hypoxic respirator failure Acute exacerbation of CHF related to acute on chronic systolic heart failure Bilateral patchy pneumonia mixed bacterial and/or or gram-negative there is some predominance of gram-positive cocci and gram-negative diplococci is seen him a final ID is pending Baseline COPD Likely obstructive sleep apnea and sleep disorder breathing Diffuse coronary artery disease disease with ischemic cardiomyopathy Severe morbid obesity Chronic atrial fibrillation Dyslipidemia, hypertension, hypertensive cardiovascular disease Leukocytosis likely related to multifactorial as well as pneumonia Plan: Gentle diuresis Broad-spectrum antibiotics, for now we'll continue vancomycin and Zosyn, awaiting final sputum culture results Continuation of home medications We will hold on IV steroids Reviewed computed tomography scan of the chest Optimize cardiovascular therapy Deep breathing exercises incentive spirometry Recommendations pending plan of care as per clinical response of the patient Time with Patient: Greater than 30
[2017-12-12 07:11] VITALS: PULSE 78
--- NOTE | 2017-12-12 07:40 | P.PN ---
Subjective Progress Note Date: 12/12/17 This is a pleasant 82-year-old gentleman with a past medical history significant for severe underlying coronary artery disease, severe ischemic cardiomyopathy and status post AICD, paroxysmal atrial fibrillation, as well as multiple comorbid conditions including hypertension and dyslipidemia was admitted to the hospital with acute exacerbation of systolic heart failure. The patient was treated with IV diuretics and he has done very well. On follow-up with him today, he is feeling better. The shortness of breath has improved significantly. No chest pain and no chest discomfort. Objective - Vital Signs Vital signs: Vital Signs Temp 96.4 F L 12/12/17 05:45 Pulse 78 12/12/17 07:05 Resp 20 12/12/17 05:45 BP 111/57 12/12/17 05:45 Pulse Ox 93 L 12/12/17 05:45 Intake & Output 12/11/17 12/12/17 12/12/17 18:59 06:59 18:59 Output Total 1800 Balance -1800 Weight 118 kg Output: Urine 1800 Other: Voiding Method Toilet Toilet Urinal Urinal # Voids 5 # Bowel Movements 2 - Constitutional General appearance: Present: no acute distress - Respiratory Respiratory: bilateral: CTA - Cardiovascular Rhythm: regular Heart sounds: normal: S1, S2 - Labs CBC & Chem 7: 12/11/17 06:44 12/11/17 06:44 Labs: Abnormal Lab Results - Last 24 Hours (Table) 12/11/17 12/11/17 Range/Units 06:44 06:44 WBC 12.2 H (3.8-10.6) k/uL RBC 3.08 L (4.30-5.90) m/uL Hgb 8.7 L (13.0-17.5) gm/dL Hct 27.6 L (39.0-53.0) % RDW 16.0 H (11.5-15.5) % Plt Count 118 L (150-450) k/uL Neutrophils # 8.7 H (1.3-7.7) k/uL Monocytes # 1.7 H (0-1.0) k/uL Carbon Dioxide 33 H (22-30) mmol/L BUN 36 H (9-20) mg/dL AST 16 L (17-59) U/L Alkaline Phosphatase 32 L (38-126) U/L Total Protein 5.3 L (6.3-8.2) g/dL Albumin 3.2 L (3.5-5.0) g/dL Microbiology - Last 24 Hours (Table) 12/10/17 08:45 Gram Stain - Preliminary Sputum 12/09/17 06:07 Blood Culture - Preliminary Blood No Growth after 48 hours Assessment and Plan Assessment: Assessment #1 CHF exacerbation secondary to systolic dysfunction #2 severe ischemic cardiomyopathy #3 severe underlying coronary artery disease #4 paroxysmal atrial fibrillation #5 multiple comorbid conditions Plan #1 the patient was switched to by mouth Lasix. #2 we'll continue the current medical treatment #3 he is going to be discharged home today. Thank you for allowing us participate
[2017-12-12] MEDS: LORATADINE 10 MG TAB PO SCH (08:28)
[2017-12-12] MEDS: AMIODARONE 200 MG TAB PO SCH (08:28)
[2017-12-12] MEDS: DOCUSATE 100 MG CAP PO SCH (08:28)
[2017-12-12] MEDS: CHOLECALCIFEROL 1,000 UNIT TAB PO SCH (08:29)
[2017-12-12] MEDS: CARVEDILOL 6.25 MG TAB PO SCH (08:29)
[2017-12-12] MEDS: APIXABAN 5 MG TAB PO SCH (08:29)
[2017-12-12] MEDS: FENOFIBRATE 160 MG TAB PO SCH (08:30)
[2017-12-12] MEDS ORDERED: FUROSEMIDE 40 MG TAB PO SCH (09:00)
[2017-12-12] MEDS ORDERED: DOXYCYCLINE MONOHYDRATE 100 MG CAPSULE PO SCH (09:00)
[2017-12-12] MEDS ORDERED: VANCOMYCIN TROUGH DUE 1 EACH MISC MISCELLANE ONE (10:00)
[2017-12-12 10:25] VITALS: RESP 14
== END 2017-12-12 11:37 | disposition home or self-care (01) | DRG 291 ==
LOC: EC 04:56 → 4MS4W 06:58
PROVIDERS: ADMIT Family Medicine; ATTEND Family Medicine
DX: I11.0 Hypertensive heart disease with heart failure (principal); J18.9 Pneumonia, unspecified organism; J96.01 Acute respiratory failure with hypoxia; D61.818 Other pancytopenia; J44.0 Chronic obstructive pulmonary disease with (acute) lower respiratory infection; J44.1 Chronic obstructive pulmonary disease with (acute) exacerbation; I50.23 Acute on chronic systolic (congestive) heart failure; Z85.01 Personal history of malignant neoplasm of esophagus; E66.01 Morbid (severe) obesity due to excess calories; E78.5 Hyperlipidemia, unspecified; E87.5 Hyperkalemia; G47.33 Obstructive sleep apnea (adult) (pediatric); I25.10 Atherosclerotic heart disease of native coronary artery without angina pectoris; I25.2 Old myocardial infarction; I25.5 Ischemic cardiomyopathy; I34.0 Nonrheumatic mitral (valve) insufficiency; I44.7 Left bundle-branch block, unspecified; I48.2 Chronic atrial fibrillation; J84.10 Pulmonary fibrosis, unspecified; K21.9 Gastro-esophageal reflux disease without esophagitis; K43.9 Ventral hernia without obstruction or gangrene; Z79.01 Long term (current) use of anticoagulants; Z79.899 Other long term (current) drug therapy; Z82.3 Family history of stroke; Z82.49 Family history of ischemic heart disease and other diseases of the circulatory system; Z85.828 Personal history of other malignant neoplasm of skin; Z87.891 Personal history of nicotine dependence; Z95.1 Presence of aortocoronary bypass graft; Z95.810 Presence of automatic (implantable) cardiac defibrillator; Y95 Nosocomial condition; Z79.82 Long term (current) use of aspirin; Z79.890 Hormone replacement therapy; Z79.891 Long term (current) use of opiate analgesic; Z79.52 Long term (current) use of systemic steroids; Z88.8 Allergy status to other drugs, medicaments and biological substances; Z86.14 Personal history of Methicillin resistant Staphylococcus aureus infection; Z68.33 Body mass index [BMI] 33.0-33.9, adult
CPT/HCPCS: 36415; 71045; 71046; 71250; 80053; 80202; 82550; 82553; 83735; 83880; 84484; 85025; 85610; 85730; 87040; 87070; 87205; 93005; 94640; 94644; 94760; 96365; 96366; 96367; 96375; 99291

== ENCOUNTER 2018-01-05 15:00 | Inpatient (IN) | payer MEDICARE, BC ==
[2018-01-05] MEDS ORDERED: ALBUTEROL NEBULIZED 2.5 MG/3 ML INHALATION PRN (18:09)
--- NOTE | 2018-01-05 18:24 | XR ---
EXAMINATION TYPE: XR chest 2V DATE OF EXAM: 01/05/2018 COMPARISON: 12/10/2017 HISTORY: Short of breath TECHNIQUE: Frontal and lateral views of the chest are obtained. FINDINGS: There is no heart failure nor confluent pneumonic infiltrate. Thoracic aorta is atheromato us. There is left axillary pacemaker with the lead tip in the right ventricle. There are sternal wire s. Bony thorax is intact. IMPRESSION: No active cardiopulmonary disease. There is clearing of the congestive heart failure com pared to old exam.
[2018-01-05] MEDS: BUDESONIDE 0.5 MG/2 ML NEBU INHALATION SCH (19:01)
--- NOTE | 2018-01-05 19:22 | CONS ---
CONSULTATION Julian Haynes is an 82-year-old male who presented to the hospital with increasing shortness of breath for about 4-5 days duration. This has been associated with swelling of his lower extremities. He does not follow as an outpatient with the pulmonary physician and with his permission and at the recommendation of his primary care physician, I saw him. He does not give any history of fever, chills or rigors over the last few days. He does have a history of obstructive sleep apnea, but was unable to tolerate CPAP in the past. He has a history of cardio myopathy with an ejection fraction based on an echo from June 16, 2018 of 20-25% with severe global hypokinesis. He had been on diuretics which had been increased recently, but he continued to worsen and came in for further evaluation and management. PAST MEDICAL HISTORY: Positive for atrial fibrillation, history of asthma, possible COPD, bipolar disorder, coronary artery disease, status post coronary artery bypass in I believe in 2004. History of esophageal cancer, skin cancer removal, chronic low back pain. Appendectomy, AICD placement, bowel resection, EGD. FAMILY HISTORY: Positive for UT in his father. Mother had CVA and TIA, in early 80s. 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 He used to smoke about 1/2 to 2 packs of cigarettes per day. Does not drink alcohol excessively. REVIEW OF SYSTEMS: Noncontributory other than for what is described in his present illness and past medical history. PHYSICAL EXAMINATION: Blood pressure is 94/55, respiratory rate of 18, pulse rate of 73, temperature 97.3, O2 saturation on room air is 98%. HEENT reveals pupils are equal, mild prominence of the jugular veins. Mallampati is 3. Chest reveals scattered crackles in the bases. No clear wheeze. Cardiovascular system revealed S1, S2. Systolic murmur is heard. ABDOMEN: Soft. There is 2+ pedal edema. LABS: Reveal a D-dimer of 0.61, troponin of 0.012. NT proBNP of 4990. MEDICATIONS: Prior to admission were omeprazole, fenofibrate, vitamin D3, ipratropium with albuterol nebulizer, hydrocodone with acetaminophen, Lasix which had been up to 40 mg twice a day, folic acid 1 mg a day, simvastatin, montelukast, Claritin, Synthroid 100 mcg a day. Coreg 3.125 mg b.i.d., aspirin 81 mg q.h.s., apixaban 5 mg p.o. b.i.d., amiodarone 200 mg daily, and docusate 100 mg daily. IMPRESSION: At this time: 1. Congestive heart failure due to systolic etiology with acute exacerbation. 2. Baseline chronic obstructive pulmonary disease with asthma. 3. Obesity. 4. Obstructive sleep apnea, untreated, which may be contributing to atrial fibrillation as well as cardiomyopathy. 5. Atrial fibrillation. 6. Coronary artery disease status post coronary artery bypass. 7. Doubt pulmonary embolus even though D-dimer is elevated as the patient is already on anticoagulation and clinically seems to have congestive heart failure. At this point in time from a pulmonary standpoint, would keep the patient in negative fluid balance, use Vasotec for afterload reduction. Keep the patient on Coreg, montelukast, bronchodilators, aerosolized steroids. Cardiology is on consult. We will have them further evaluate to decide if his Cordarone needs to be continued at 200 mg daily versus the lower dose. Would strongly recommend that he undergo an outpatient sleep study and was counseled regarding the need to be treated for obstructive sleep apnea as this may affect his congestive heart failure and atrial fibrillation in a positive way. He was counseled regarding his condition and this approach in the presence of his . I would like to thank you for allowing me the privilege of participating in his care. SPEEDY / RAJENDRA: [id number] /
[2018-01-05] MEDS: CARVEDILOL 3.125 MG TAB PO SCH ×2 (20:35→21:18)
[2018-01-05] MEDS: ASPIRIN 81 MG PO SCH (20:36)
[2018-01-05] MEDS: LISINOPRIL 10 MG TAB PO SCH ×2 (20:36→21:18)
[2018-01-05] MEDS: FUROSEMIDE 10 MG/ML 10 ML VIAL IV SCH (20:36)
[2018-01-05] MEDS ORDERED: APIXABAN 5 MG TAB PO SCH (21:00)
[2018-01-05] MEDS: MONTELUKAST 10 MG TAB PO SCH (21:19)
[2018-01-05 22:33] LABS: Albumin 3.6 g/dL (3.5-5.0); Potassium 4.4 mmol/L (3.5-5.1); Total Bilirubin 0.3 mg/dL (0.2-1.3); Total Protein 5.9 g/dL (6.3-8.2)
[2018-01-05 22:47] LABS: Anisocytosis Slight; Basophils # (A) 0.1 k/uL (0-0.2); Basophils % (A) 1 %; Eosinophils # (A) 0.2 k/uL (0-0.7); Eosinophils % (A) 2 %; HCT 31.7 % (39.0-53.0); HGB 9.4 gm/dL (13.0-17.5); Hypochromasia Marked; Lymphocytes # (A) 1.1 k/uL (1.0-4.8); Lymphocytes % (A) 12 %; MCH 26.9 pg (25.0-35.0); MCHC 29.5 g/dL (31.0-37.0); MCV 91.1 fL (80.0-100.0); Mean Platelet Volume 9.1; Monocytes # (A) 1.1 k/uL (0-1.0); Monocytes % (A) 12 %; Neutrophils # (A) 6.2 k/uL (1.3-7.7); Neutrophils % (A) 70 %; Platelet Count 113 k/uL (150-450); RBC 3.49 m/uL (4.30-5.90); RDW 16.7 % (11.5-15.5); WBC 8.8 k/uL (3.8-10.6)
[2018-01-05] MEDS: SACUBITRIL/VALSARTAN 24 MG-26 MG TABLET PO SCH (23:00)
--- NOTE | 2018-01-05 23:08 | XR ---
EXAMINATION TYPE: XR chest 2V DATE OF EXAM: 01/05/2018 COMPARISON: Today 6:00 PM HISTORY: Short of breath TECHNIQUE: Frontal and lateral views of the chest are obtained. FINDINGS: There is no heart failure nor confluent pneumonic infiltrate. Heart is probably enlarged. There are sternal wires. There is left axillary pacemaker with the lead tip in the right ventricle. T here is no pleural effusion. Bony thorax is intact. IMPRESSION: Cardiomegaly. No active cardiopulmonary disease. No change.
[2018-01-06] MEDS: LEVOTHYROXINE 100 MCG TAB PO SCH (06:05)
[2018-01-06] MEDS: HYDROcodone/APAP 10-325MG 1 EACH TAB PO PRN (06:17)
[2018-01-06] MEDS: BUDESONIDE 0.5 MG/2 ML NEBU INHALATION SCH ×2 (07:05→19:30)
[2018-01-06] MEDS: IPRATROPIUM-ALBUTEROL 3 ML NEB INHALATION SCH ×4 (07:05→19:30)
[2018-01-06] MEDS ORDERED: CARVEDILOL 6.25 MG TAB PO SCH (07:30)
[2018-01-06] MEDS: FUROSEMIDE 10 MG/ML 10 ML VIAL IV SCH (07:31)
[2018-01-06] MEDS: PANTOPRAZOLE 40 MG TABLET PO SCH ×2 (07:33→15:22)
[2018-01-06] MEDS: APIXABAN 5 MG TAB PO SCH ×2 (07:33→21:52)
[2018-01-06] MEDS: CARVEDILOL 3.125 MG TAB PO SCH ×2 (07:34→21:53)
[2018-01-06] MEDS: SACUBITRIL/VALSARTAN 24 MG-26 MG TABLET PO SCH ×2 (07:34→21:53)
[2018-01-06] MEDS: LORATADINE 10 MG TAB PO SCH (07:35)
[2018-01-06] MEDS: AMIODARONE 200 MG TAB PO SCH (07:35)
[2018-01-06] MEDS: DOCUSATE 100 MG CAP PO SCH (07:35)
[2018-01-06] MEDS: FENOFIBRATE 160 MG TAB PO SCH (07:35)
[2018-01-06 08:17] LABS: Anisocytosis Slight; Basophils % (A) 0 %; Eosinophils # (A) 0.1 k/uL (0-0.7); Eosinophils % (A) 2 %; HCT 29.8 % (39.0-53.0); HGB 9.2 gm/dL (13.0-17.5); Hypochromasia Moderate; Lymphocytes # (A) 1.1 k/uL (1.0-4.8); Lymphocytes % (A) 14 %; MCH 26.7 pg (25.0-35.0); MCHC 30.8 g/dL (31.0-37.0); MCV 86.6 fL (80.0-100.0); Mean Platelet Volume 8.2; Monocytes % (A) 12 %; Neutrophils # (A) 5.5 k/uL (1.3-7.7); Neutrophils % (A) 68 %; Platelet Count 114 k/uL (150-450); RBC 3.44 m/uL (4.30-5.90); RDW 16.5 % (11.5-15.5)
[2018-01-06 08:24] LABS: Albumin 3.6 g/dL (3.5-5.0); Calcium 8.7 mg/dL (8.4-10.2); Potassium 4.4 mmol/L (3.5-5.1); Total Bilirubin 0.4 mg/dL (0.2-1.3); Total Protein 5.8 g/dL (6.3-8.2)
--- NOTE | 2018-01-06 11:28 | P.PN ---
Subjective Progress Note Date: 01/06/18 HPI: 01/05/18- Julian Haynes is an 82-year-old male who presented to the hospital with increasing shortness of breath for about 4-5 days duration. This has been associated with swelling of his lower extremities. He does not follow as an outpatient with the pulmonary physician and with his permission and the recommendation of his primary care physician, I saw him. He does not give any history of fever, chills or rigors over the last few days. He does have a history of obstructive sleep apnea, but was unable to tolerate CPAP in the past. He has a history of cardiomyopathy with an ejection fraction based on echo from 06/16/2018 of 20-25% with severe global hypokinesis. He had been on diuretics which had been increased recently, but he continued to worsen and came in for further evaluation and management. 01/06/18- patient is being seen examined and evaluated on rounds. He is resting up in bed on room air. Does continue to have some shortness of breath with exertion and activity. Cardiology is on complement also following with the patient. Chest x-ray is reviewed and is negative for any acute process. He is afebrile no further complaints. Objective - Vital Signs Vital signs: Vital Signs Temp 97.5 F L 01/06/18 06:28 Pulse 80 01/06/18 10:50 Resp 20 01/06/18 08:00 BP 93/60 01/06/18 06:28 Pulse Ox 94 L 01/06/18 06:28 Intake & Output 01/05/18 01/06/18 01/06/18 18:59 06:59 18:59 Intake Total 1080 Balance 1080 Weight 119 kg Intake: Oral 1080 Other: # Voids 1 - Exam GENERAL EXAM: Alert, active, comfortable in no apparent distress. HEAD: Normocephalic. EYES: Normal reaction of pupils, equal size. NOSE: Clear with pink turbinates. THROAT: No erythema or exudates. Hammad Violet grade 3 NECK: No masses, no JVD. CHEST: No chest wall deformity. LUNGS: Some faint scattered crackles at the bases. improving. CVS: S1 and S2 normal with systolic mumurs, regular rhythm. ABDOMEN: No hepatosplenomegaly, normal bowel sounds, no guarding or rigidity. EXTREMITIES: +2 edema noted, pedal pulses palpable. CENTRAL NERVOUS SYSTEM: No focal deficits, tone is normal in all 4 extremities. - Labs CBC & Chem 7: 01/06/18 07:35 01/06/18 07:35 Labs: Abnormal Lab Results - Last 24 Hours (Table) 01/05/18 01/05/18 01/05/18 Range/Units 16:39 16:40 16:40 RBC 3.49 L (4.30-5.90) m/uL Hgb 9.4 L (13.0-17.5) gm/dL Hct 31.7 L (39.0-53.0) % MCHC 29.5 L (31.0-37.0) g/dL RDW 16.7 H (11.5-15.5) % Plt Count 113 L (150-450) k/uL Monocytes # 1.1 H (0-1.0) k/uL D-Dimer 0.61 H (<0.60) mg/L FEU BUN 49 H (9-20) mg/dL Creatinine 1.70 H (0.66-1.25) mg/dL Total Protein 5.9 L (6.3-8.2) g/dL 01/06/18 01/06/18 Range/Units 07:35 07:35 RBC 3.44 L (4.30-5.90) m/uL Hgb 9.2 L (13.0-17.5) gm/dL Hct 29.8 L (39.0-53.0) % MCHC 30.8 L (31.0-37.0) g/dL RDW 16.5 H (11.5-15.5) % Plt Count 114 L (150-450) k/uL Monocytes # (0-1.0) k/uL D-Dimer (<0.60) mg/L FEU BUN 43 H (9-20) mg/dL Creatinine 1.38 H (0.66-1.25) mg/dL Total Protein 5.8 L (6.3-8.2) g/dL Microbiology - Last 24 Hours (Table) 01/05/18 22:55 Urine Culture - Preliminary Urine,Clean Catch Assessment and Plan Assessment: Assessment Congestive heart failure due to systolic with acute exacerbation Baseline COPD with chronic persistent moderate asthma Obesity Obstructive sleep apnea, untreated which may be contributing to A. fib and cardiomyopathy Atrial fibrillation Coronary artery disease status post coronary artery bypass doubt pulmonary embolism even though d-dimer is elevated as the patient is artery on anticoagulation and clinically seems to have CHF Plan Medications have been reviewed and will be continued as ordered. Maintain negative fluid balance Cardiology on consult, please evaluate if amiodarone should be continued as 200 versus a lower dose Continue with pulmonary hygiene, coughing and deep breathing exercises, and supportive care. Supplemental oxygen to maintain oxygen saturations of 92% or better. Continue nebulizer treatments. Patient should undergo an outpatient sleep study 3. Call told undergoing proper treatment for PEG as this is affecting his CHF and atrial fibrillation GI and DVT prophylaxis. We will continue to monitor labs/results and adjust treatment as necessary. Further recommendations pending. I performed an examination of the patient and discussed their management with the nurse practitioner. I have reviewed the nurse practitioner's note and agree with the documented findings and plan of care.
--- NOTE | 2018-01-06 13:12 | P.CRDCN ---
History of Present Illness History of present illness: Mr. Haynes is a pleasant 82-year-old male past medical history significant for coronary artery disease s/p bypass grafting, permanent atrial fibrillation on buttermaker anticoagulation, ischemic cardiomyopathy with EF 20-25 %, chronic systolic heart failure, hypertension, dyslipidemia, COPD, sleep apnea and ICD implantation. He follows with Dr. Nicholson in the office. We have been asked to see him in consultation for shortness of breath. The patient states on Friday evening he started feeling dizzy. His dizziness was persistent and described as a light-headed sensation. He denies associated chest pain, shortness of breath, nausea, vomiting or diaphoresis. Friday morning he woke up and again felt dizzy, but this time he fell to the ground. Unsure if there was LOC. He had to call EMS to help assist him up due to weakness. He did not come to the hospital for evaluation at that time. He saw Dr. Menon in the office yesterday for a regularly scheduled appointment and was sent to the hospital as a direct admit for further evaluation. He was recently admitted here in November with symptoms of heart failure and was diuresed with IV lasix. He states his breathing has been better since that admission but he still always has mild dyspnea on exertion which is chronic. No EKG on arrival. Chest xray on arrival reveals clearing of heart failure. Repeat is clear with no acute cardiopulmonary process. Laboratory data reviewed, hemoglobin 9.2, platelets 114, d-dimer 0.61, sodium 138, potassium 4.4, creatinine 1.38, cardiac enzymes negative 1, proBNP 4090. Current cardiac medications include Lasix 20 mg twice a day, and chest oh daily , fenofibrate 134 mg daily, simvastatin 20 mg daily, amiodarone 200 mg daily, Eliquis 5 mg twice a day, aspirin 81 mg daily, carvedilol 3.125 mg twice a day. He has been started on Lasix 60 mg IV twice a day since admission per pulmonary. Most recent echocardiogram performed November 2017 reveals diminished left ventricular systolic function with ejection fraction 20-25%. Review of Systems At the time of my exam: CONSTITUTIONAL: Denies fever. Denies chills. EYES: Denies blurred vision. Denies vision changes. Denies eye pain. EARS, NOSE, MOUTH & THROAT: Denies headache. Denies sore throat. Denies ear pain. CARDIOVASCULAR: Denies chest pain. Denies shortness of breath. Denies orthopnea. Denies PND. Denies palpitations. RESPIRATORY: Denies cough. GASTROINTESTINAL: Denies abdominal pain. Denies diarrhea. Denies constipation. Denies nausea. Denies vomiting. MUSCULOSKELETAL: Denies myalgias. INTEGUMENTARY: Denies pruitis. Denies rash. NEUROLOGIC: Denies numbness. Denies tingling. Complains of generalized weakness. PSYCHIATRIC: Denies anxiety. Denies depression. ENDOCRINE: Denies fatigue. Denies weight change. Denies polydipsia. Denies polyurina. GENITOURINARY: Denies burning, hematuria or urgency with micturation. HEMATOLOGIC: Denies history of anemia. Denies bleeding. Past Medical History Past Medical History: Asthma, Blood Disorder, Coronary Artery Disease (CAD), Cancer, Heart Failure, COPD, GERD/Reflux, Hyperlipidemia, Hypertension, Myocardial Infarction ([place]), Pneumonia, Sleep Apnea/CPAP/BIPAP, Supraventricular Tachycardia (SVT), Vascular Disorder Additional Past Medical History / Comment(s): PEG pt uses no device, ischemic cardiomyopathy, decreased circulation to legs, esophageal cancer with surgery, paroxysmal SVT, anemia, diverticular dx, hiatal hernia, chronic low back pain, abdominal cellulitis, skin cancer with removal. Last Myocardial Infarction Date:: 1994 History of Any Multi-Drug Resistant Organisms: MRSA Date of last positivie culture/infection: 2012 (per patient MRSA 4 to 5 years ago) MDRO Source:: Unknown Past Surgical History: AICD, Appendectomy, Bowel Resection, Cholecystectomy, Coronary Bypass/CABG, Heart Catheterization, Hernia Repair Additional Past Surgical History / Comment(s): Bowel resections x 2 for obstructions, AICD/pacer, 4vessel CABG, laser spine surgery to low back, colonoscopies, benign polypectomy, multiple abdominal hernia repairs, EGDs q 3 months, abdominal wall seroma removed, skin cancer removals. Past Anesthesia/Blood Transfusion Reactions: No Reported Reaction Type of Cardiac Device: Permanent Pacemaker, AICD Device Placement Date:: 2010 Past Psychological History: No Psychological Hx Reported Additional Psychological History / Comment(s): Pt resides with his spouse of 8 yrs. He uses a cane or occasionally uses a rolling walker with a seat. He drives. 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 Mother Family Medical History: CVA/TIA Additional Family Medical History / Comment(s): Mother of a CVA in her early 80s. Medications and Allergies Home Medications Medication Instructions Recorded Confirmed Type Loratadine [Claritin] 10 mg PO DAILY 11/18/13 01/05/18 History Montelukast Sodium [Singulair] 10 mg PO HS 11/18/13 01/05/18 History Simvastatin [Zocor] 20 mg PO HS 11/18/13 01/05/18 History Cholecalciferol [Vitamin D3] 2,000 unit PO DAILY 09/18/15 01/05/18 History Fenofibrate,Micronized 134 mg PO DAILY 09/18/15 01/05/18 History [Fenofibrate] Aspirin EC [Ecotrin Low Dose] 81 mg PO HS 06/19/16 01/05/18 History Hydrocodone/Acetaminophen [Mclean 1 tab PO Q6H PRN 06/19/16 01/05/18 History 10-325] Folic Acid 1 mg PO DAILY 04/25/17 01/05/18 History Docusate [Colace] 100 mg PO DAILY 06/14/17 01/05/18 History Apixaban [Eliquis] 5 mg PO BID #60 tab 06/19/17 01/05/18 Rx Amiodarone [Cordarone] 200 mg PO DAILY 10/22/17 01/05/18 History Levothyroxine Sodium [Synthroid] 100 mcg PO DAILY 10/22/17 01/05/18 History Ipratropium-Albuterol Nebulize 3 ml INHALATION RT-QID ampul.neb 12/11/17 Rx [Duoneb 0.5 mg-3 mg/3 ml Soln] Carvedilol [Coreg] 3.125 mg PO BID 01/05/18 01/05/18 History Furosemide [Lasix] 20 mg PO BID 01/05/18 01/05/18 History Omeprazole [PriLOSEC] 40 mg PO HS 01/05/18 01/05/18 History Sacubitril/Valsartan [Entresto 24 1 tab PO DAILY 01/05/18 01/05/18 History mg-26 mg Tablet] Allergies Allergy/AdvReac Type Severity Reaction Status Date / Time lorazepam [From Ativan] AdvReac Intermediate agitated Verified 01/05/18 18:03 Physical Exam Vitals: Vital Signs Temp Pulse Pulse Resp BP Pulse Ox 01/06/18 10:50 80 01/06/18 10:45 72 01/06/18 08:00 83 20 01/06/18 07:23 80 01/06/18 07:06 76 01/06/18 06:28 97.5 F L 83 20 93/60 94 L 01/05/18 23:10 20 01/05/18 22:58 70 101/56 01/05/18 21:10 97.6 F 72 20 91/49 94 L 01/05/18 19:14 78 01/05/18 19:02 76 01/05/18 17:34 16 01/05/18 15:58 97.3 F L 73 18 94/55 98 Intake and Output 01/05/18 01/06/18 01/06/18 22:59 06:59 14:59 Intake Total 840 240 Output Total 600 Balance 840 240 -600 Intake: Oral 840 240 Output: Urine 600 Other: # Voids 1 1 1 Weight 119 kg Blood pressure 93/60 heart rate 88 afebrile maintaining oxygen saturation on room air GENERAL: This is a 82-year-old occasion male in no apparent distress at the time of my examination. HEENT: Head is atraumatic, normocephalic. Pupils are equal, round. Sclerae anicteric. Conjunctivae are clear. Mucous membranes of the mouth are moist. Neck is supple. There is no jugular venous distention. No carotid bruit is heard. LUNGS: Clear to auscultation no wheezes, rales or rhonchi. No chest wall tenderness is noted on palpation or with deep breathing. HEART: Irregular rate and rhythm with systolic ejection murmur at the base ,no rubs or gallops. S1 and S2 heard. ABDOMEN: Soft, nontender. Bowel sounds are heard. No organomegaly noted. EXTREMITIES: bilateral lower extremity 1+ pitting edema and no calf tenderness noted. VASCULAR: Radial and dorsalis pedis pulses palpated, no evidence of clubbing. NEUROLOGIC: Patient is awake, alert and oriented x3. Results 01/06/18 07:35 01/06/18 07:35 Cardiac Enzymes 01/05/18 01/05/18 01/06/18 Range/Units 16:39 16:40 07:35 AST 44 23 (17-59) U/L Troponin I <0.012 (0.000-0.034) ng/mL CBC 01/05/18 01/06/18 Range/Units 16:40 07:35 WBC 8.8 8.0 (3.8-10.6) k/uL RBC 3.49 L 3.44 L (4.30-5.90) m/uL Hgb 9.4 L 9.2 L (13.0-17.5) gm/dL Hct 31.7 L 29.8 L (39.0-53.0) % Plt Count 113 L 114 L (150-450) k/uL Comprehensive Metabolic Panel 01/05/18 01/06/18 Range/Units 16:40 07:35 Sodium 137 138 (137-145) mmol/L Potassium 4.4 4.4 (3.5-5.1) mmol/L Chloride 102 101 (98-107) mmol/L Carbon Dioxide 26 26 (22-30) mmol/L BUN 49 H 43 H (9-20) mg/dL Creatinine 1.70 H 1.38 H (0.66-1.25) mg/dL Glucose 92 85 (74-99) mg/dL Calcium 9.0 8.7 (8.4-10.2) mg/dL AST 44 23 (17-59) U/L ALT 31 31 (21-72) U/L Alkaline Phosphatase 38 38 (38-126) U/L Total Protein 5.9 L 5.8 L (6.3-8.2) g/dL Albumin 3.6 3.6 (3.5-5.0) g/dL Current Medications Generic Name Dose Route Start Last Admin Trade Name Freq PRN Reason Stop Dose Admin Hydrocodone Bitart/Acetaminophen 1 each 01/05/18 22:22 01/06/18 06:17 Mclean 10 PO 1 each Q6H PRN Administration Pain Albuterol Sulfate 2.5 mg 01/05/18 18:09 01/05/18 19:01 Ventolin Nebulized INHALATION 2.5 mg RT-QID PRN Administration Shortness Of Breath Or Wheezing Albuterol/Ipratropium 3 ml 01/06/18 08:00 01/06/18 10:44 Duoneb 0.5 Mg-3 Mg/3 Ml Soln INHALATION 3 ml RT-QID RAMESH Administration Amiodarone HCl 200 mg 01/06/18 09:00 01/06/18 07:35 Cordarone PO 200 mg DAILY RAMESH Administration Apixaban 5 mg 01/06/18 09:00 01/06/18 07:33 Eliquis PO 5 mg BID RAMESH Administration Aspirin 81 mg 01/05/18 21:00 01/05/18 20:36 Aspirin PO 81 mg HS RAMESH Administration Atorvastatin Calcium 10 mg 01/06/18 21:00 Lipitor PO HS [facility] Budesonide 0.5 mg 01/05/18 20:00 01/06/18 07:05 Pulmicort INHALATION 0.5 mg RT-BID RAMESH Administration Carvedilol 3.125 mg 01/05/18 21:00 01/06/18 07:34 Coreg PO 3.125 mg BID RAMESH Administration Cholecalciferol 2,000 unit 01/06/18 12:00 Vitamin D3 PO DAILY@1200 RAMESH Docusate Sodium 100 mg 01/06/18 09:00 01/06/18 07:35 Colace PO 100 mg DAILY RAMESH Administration Fenofibrate 160 mg 01/06/18 09:00 01/06/18 07:35 Lofibra PO 160 mg DAILY RAMESH Administration Folic Acid 1 mg 01/06/18 12:00 Folic Acid PO DAILY@1200 RAMESH Furosemide 60 mg 01/05/18 21:00 01/06/18 07:31 Lasix IV 60 mg Q12HR RAMESH Administration Levothyroxine Sodium 100 mcg 01/06/18 06:30 01/06/18 06:05 Synthroid PO 100 mcg DAILY@0630 RAMESH Administration Loratadine 10 mg 01/06/18 09:00 01/06/18 07:35 Claritin PO 10 mg DAILY RAMESH Administration Montelukast Sodium 10 mg 01/05/18 21:00 01/05/18 21:19 Singulair PO 10 mg HS RAMESH Administration Pantoprazole Sodium 40 mg 01/06/18 07:30 01/06/18 07:33 Protonix PO 40 mg AC-BID RAMESH Administration Sacubitril/Valsartan 1 each 01/05/18 22:30 01/06/18 07:34 Entresto 24 Mg-26 Mg Tablet PO 1 each BID RAMESH Administration Intake and Output 01/05/18 01/06/18 01/06/18 22:59 06:59 14:59 Intake Total 840 240 Output Total 600 Balance 840 240 -600 Intake: Oral 840 240 Output: Urine 600 Other: # Voids 1 1 1 Weight 119 kg 01/06/18 07:35 01/06/18 07:35 Assessment and Plan Assessment: ASSESSMENT 1. Dizziness and possible syncope, unsure if he actually had loss of consciousness. 2. Acute on chronic systolic heart failure, ejection fraction 20-25%. Mild exacerbation. 3. History of coronary artery disease status post bypass grafting 4. Permanent atrial fibrillation on long-term anticoagulation with controlled ventricular response 5. Ischemic cardiomyopathy status post ICD implantation 6. COPD 7. Dyslipidemia 8. Hypertension, currently hypotensive. 9. Chronic kidney disease, GFR 48, stage III PLAN Transitioned to oral diuretics. Interrogate Zetera device. Obtain baseline EKG. Apply cardiac telemetry monitoring to assess for acute arrhythmia. Check magnesium. Further recommendations to follow based upon clinical course. Thank you kindly for this consultation. Nurse Practitioner note has been reviewed, I agree with a documented findings and plan of care. Patient was seen and examined.
[2018-01-06] MEDS: FOLIC ACID 1 MG TAB PO SCH (13:22)
[2018-01-06] MEDS: CHOLECALCIFEROL 1,000 UNIT TAB PO SCH (13:22)
[2018-01-06] MEDS: FUROSEMIDE 20 MG TAB PO SCH (15:22)
[2018-01-06] MEDS ORDERED: NON-FORMULARY DRUG (Omeprazole 40 MG) PO SCH (21:00)
[2018-01-06] MEDS: ATORVASTATIN 10 MG TAB PO SCH (21:53)
[2018-01-06] MEDS: ASPIRIN 81 MG PO SCH (21:53)
[2018-01-06] MEDS: MONTELUKAST 10 MG TAB PO SCH (21:53)
[2018-01-07] MEDS: HYDROcodone/APAP 10-325MG 1 EACH TAB PO PRN (04:45)
--- NOTE | 2018-01-07 05:38 | PN ---
PROGRESS NOTE SUBJECTIVE: An 82-year-old white male with generalized weakness, congestive heart failure, acute systolic. Await for Cardiology consultation. Remains on IV diuresis. Lisinopril was discontinued. Started on Entresto for which he was taking at home. Possible antidepressant medicines will be needed as he appears to be depressed and possibly fci placement as he has generalized weakness. CARDIOVASCULAR: S1, S2. Lungs show rales at the bases. GI: Distended due to ventral hernia. HEMATOLOGY: 2 to 3+ pedal edema. ASSESSMENT: 1. Generalized weakness. 2. Acute systolic congestive heart failure. 3. Chronic obstructive pulmonary disease. 4. Hypertension. 5. Esophageal cancer. 6. Ventral hernia. 7. Possible depression, anxiety. 8. Status post lumbar laminectomy with left leg weakness. Please see further orders. Await for Cardiology consult. Continue on broad-spectrum antibiotics empirically and IV Lasix. MMODL / IJN: [id number] /
[2018-01-07] MEDS: LEVOTHYROXINE 100 MCG TAB PO SCH (05:47)
[2018-01-07] MEDS: BUDESONIDE 0.5 MG/2 ML NEBU INHALATION SCH ×3 (08:18→19:24)
[2018-01-07] MEDS: IPRATROPIUM-ALBUTEROL 3 ML NEB INHALATION SCH ×5 (08:18→19:24)
[2018-01-07 09:24] LABS: Anisocytosis Slight; Basophils % (A) 0 %; Eosinophils # (A) 0.1 k/uL (0-0.7); Eosinophils % (A) 1 %; HCT 29.4 % (39.0-53.0); Hypochromasia Moderate; Lymphocytes # (A) 1.3 k/uL (1.0-4.8); Lymphocytes % (A) 13 %; MCH 26.6 pg (25.0-35.0); MCHC 30.8 g/dL (31.0-37.0); MCV 86.5 fL (80.0-100.0); Mean Platelet Volume 8.7; Monocytes # (A) 1.2 k/uL (0-1.0); Monocytes % (A) 12 %; Neutrophils # (A) 6.9 k/uL (1.3-7.7); Neutrophils % (A) 69 %; Platelet Count 137 k/uL (150-450); RBC 3.39 m/uL (4.30-5.90); RDW 16.5 % (11.5-15.5); WBC 9.9 k/uL (3.8-10.6)
[2018-01-07 09:31] LABS: Albumin 3.7 g/dL (3.5-5.0); Calcium 8.9 mg/dL (8.4-10.2); Potassium 4.5 mmol/L (3.5-5.1); Total Bilirubin 0.3 mg/dL (0.2-1.3); Total Protein 5.9 g/dL (6.3-8.2)
[2018-01-07] MEDS ORDERED: SODIUM CHLORIDE 0.9% 500 ML IV ONE (10:27)
[2018-01-07] MEDS: DOCUSATE 100 MG CAP PO SCH (11:20)
[2018-01-07] MEDS: CHOLECALCIFEROL 1,000 UNIT TAB PO SCH (11:20)
[2018-01-07] MEDS: PANTOPRAZOLE 40 MG TABLET PO SCH ×2 (11:20→18:19)
[2018-01-07] MEDS: LORATADINE 10 MG TAB PO SCH (11:20)
[2018-01-07] MEDS: APIXABAN 5 MG TAB PO SCH ×2 (11:20→21:29)
[2018-01-07] MEDS: FENOFIBRATE 160 MG TAB PO SCH (11:20)
[2018-01-07] MEDS: FOLIC ACID 1 MG TAB PO SCH (11:20)
[2018-01-07] MEDS: AMIODARONE 200 MG TAB PO SCH (11:23)
[2018-01-07] MEDS: FUROSEMIDE 20 MG TAB PO SCH ×2 (11:23→18:19)
[2018-01-07] MEDS: SACUBITRIL/VALSARTAN 24 MG-26 MG TABLET PO SCH (11:24)
--- NOTE | 2018-01-07 12:17 | P.PN ---
Subjective Progress Note Date: 01/07/18 HPI: 01/05/18- Julian Haynes is an 82-year-old male who presented to the hospital with increasing shortness of breath for about 4-5 days duration. This has been associated with swelling of his lower extremities. He does not follow as an outpatient with the pulmonary physician and with his permission and the recommendation of his primary care physician, I saw him. He does not give any history of fever, chills or rigors over the last few days. He does have a history of obstructive sleep apnea, but was unable to tolerate CPAP in the past. He has a history of cardiomyopathy with an ejection fraction based on echo from 06/16/2018 of 20-25% with severe global hypokinesis. He had been on diuretics which had been increased recently, but he continued to worsen and came in for further evaluation and management. 01/06/18- patient is being seen examined and evaluated on rounds. He is resting up in bed on room air. Does continue to have some shortness of breath with exertion and activity. Cardiology is on complement also following with the patient. Chest x-ray is reviewed and is negative for any acute process. He is afebrile no further complaints. 01/07/18- patient is being seen examined and evaluated today on rounds. He is lying down in bed on room air. States he feels weak. Blood pressure was obtained and is 75/35. Heart rate of 65, SpO2 94% on room air. Patient's a.m. blood pressure meds have been held, cardiology is aware. He is supposed to go for an AICD interrogation today. We will give her 500 mL bolus for his hypotension. He is afebrile. Objective - Vital Signs Vital signs: Vital Signs Temp 98 F 01/07/18 06:18 Pulse 70 01/07/18 11:37 Resp 16 01/07/18 06:18 BP 90/47 01/07/18 06:18 Pulse Ox 93 L 01/07/18 06:18 Intake & Output 01/06/18 01/07/18 01/07/18 18:59 06:59 18:59 Intake Total 300 200 Output Total 600 Balance -300 200 Weight 119 kg Intake: Oral 300 200 Output: Urine 600 Other: # Voids 1 1 - Exam GENERAL EXAM: Alert, active, comfortable in no apparent distress. HEAD: Normocephalic. EYES: Normal reaction of pupils, equal size. NOSE: Clear with pink turbinates. THROAT: No erythema or exudates. Mallampati grade 3 NECK: No masses, no JVD. CHEST: No chest wall deformity. LUNGS: Lungs are Diminished at the bases CVS: S1 and S2 normal with systolic mumurs, regular rhythm. ABDOMEN: No hepatosplenomegaly, normal bowel sounds, no guarding or rigidity. EXTREMITIES: +2 edema noted, pedal pulses palpable. CENTRAL NERVOUS SYSTEM: No focal deficits, tone is normal in all 4 extremities. - Labs CBC & Chem 7: 01/07/18 08:04 01/07/18 08:04 Labs: Abnormal Lab Results - Last 24 Hours (Table) 01/07/18 01/07/18 Range/Units 08:04 08:04 RBC 3.39 L (4.30-5.90) m/uL Hgb 9.0 L (13.0-17.5) gm/dL Hct 29.4 L (39.0-53.0) % MCHC 30.8 L (31.0-37.0) g/dL RDW 16.5 H (11.5-15.5) % Plt Count 137 L (150-450) k/uL Monocytes # 1.2 H (0-1.0) k/uL BUN 45 H (9-20) mg/dL Creatinine 1.60 H (0.66-1.25) mg/dL Total Protein 5.9 L (6.3-8.2) g/dL Microbiology - Last 24 Hours (Table) 01/05/18 22:55 Urine Culture - Final Urine,Clean Catch 01/05/18 16:39 Blood Culture - Preliminary Blood No Growth after 24 hours Assessment and Plan Assessment: Assessment Congestive heart failure due to systolic with acute exacerbation Baseline COPD with chronic persistent moderate asthma Obesity Obstructive sleep apnea, untreated which may be contributing to A. fib and cardiomyopathy Atrial fibrillation Coronary artery disease status post coronary artery bypass doubt pulmonary embolism even though d-dimer is elevated as the patient is artery on anticoagulation and clinically seems to have CHF Plan One time IV Bolus of 500cc r/t hypotension Medications have been reviewed and will be continued as ordered. Maintain negative fluid balance Cardiology on consult, please evaluate if amiodarone should be continued as 200 versus a lower dose Continue with pulmonary hygiene, coughing and deep breathing exercises, and supportive care. Supplemental oxygen to maintain oxygen saturations of 92% or better. Continue nebulizer treatments. Patient should undergo an outpatient sleep study Encourged undergoing proper treatment for PEG as this is affecting his CHF and atrial fibrillation GI and DVT prophylaxis. We will continue to monitor labs/results and adjust treatment as necessary. Further recommendations pending. I performed an examination of the patient and discussed their management with the nurse practitioner. I have reviewed the nurse practitioner's note and agree with the documented findings and plan of care.
--- NOTE | 2018-01-07 12:59 | P.PN ---
Subjective Mr. Haynes is a pleasant 82-year-old male past medical history significant for coronary artery disease s/p bypass grafting, permanent atrial fibrillation on mcc anticoagulation, ischemic cardiomyopathy with EF 20-25 %, chronic systolic heart failure, hypertension, dyslipidemia, COPD, sleep apnea and ICD implantation. He follows with Dr. Nicholson in the office. We have been asked to see him in consultation for shortness of breath. The patient states on Friday evening he started feeling dizzy. His dizziness was persistent and described as a light-headed sensation. He denies associated chest pain, shortness of breath, nausea, vomiting or diaphoresis. Friday morning he woke up and again felt dizzy, but this time he fell to the ground. Unsure if there was LOC. He had to call EMS to help assist him up due to weakness. He did not come to the hospital for evaluation at that time. He saw Dr. Menon in the office yesterday for a regularly scheduled appointment and was sent to the hospital as a direct admit for further evaluation. He was recently admitted here in November with symptoms of heart failure and was diuresed with IV lasix. He states his breathing has been better since that admission but he still always has mild dyspnea on exertion which is chronic. No EKG on arrival. Chest xray on arrival reveals clearing of heart failure. Repeat is clear with no acute cardiopulmonary process. Laboratory data reviewed, hemoglobin 9.2, platelets 114, d-dimer 0.61, sodium 138, potassium 4.4, creatinine 1.38, cardiac enzymes negative 1, proBNP 4090. Current cardiac medications include Lasix 20 mg twice a day, and entresto 24/26 mg daily, fenofibrate 134 mg daily, simvastatin 20 mg daily, amiodarone 200 mg daily, Eliquis 5 mg twice a day, aspirin 81 mg daily, carvedilol 3.125 mg twice a day. He has been started on Lasix 60 mg IV twice a day since admission per pulmonary. Most recent echocardiogram performed November 2017 reveals diminished left ventricular systolic function with ejection fraction 20-25%. 01/07/2018 Patient was seen and examined today resting comfortably in bed in no acute distress. Blood pressures have remained borderline low with 90 systolic this morning. Nursing staff attempted to get the patient up and helped him to the restroom and he became acutely dizzy. Repeat blood pressure was obtained and was 60 systolic. He was assisted back to a laying position with his feet elevated and his blood pressure improved. Telemetry tracings indicate he is having frequent PVCs. Laboratory data reviewed, hemoglobin 9.0, platelets 137, sodium 137, potassium 4.5, creatinine 1.6. He denies any significant shortness of breath. He also denies symptoms of chest pain, palpitations, nausea, vomiting or diaphoresis. Edema has improved in the lower extremities. Device interrogation reveals no acute events or arrhythmias. Objective - Vital Signs Vital signs: Vital Signs Temp 98 F 01/07/18 06:18 Pulse 70 01/07/18 11:37 Resp 16 01/07/18 06:18 BP 90/47 01/07/18 06:18 Pulse Ox 93 L 01/07/18 06:18 Intake & Output 01/06/18 01/07/18 01/07/18 18:59 06:59 18:59 Intake Total 300 200 Output Total 600 Balance -300 200 Weight 119 kg Intake: Oral 300 200 Output: Urine 600 Other: # Voids 1 1 - Exam GENERAL: Well-appearing, well-nourished and in no acute distress. NECK: Supple without JVD or thyromegaly. LUNGS: Breath sounds clear to auscultation bilaterally. Respiration equal and unlabored. No wheezes, rales or rhonchi. HEART: Irregular rate and rhythm with systolic murmurs, no rubs or gallops. S1 and S2 heard. EXTREMITIES: Normal range of motion, no edema. No clubbing or cyanosis. Peripheral pulses intact. - Labs CBC & Chem 7: 01/07/18 08:04 01/07/18 08:04 Labs: Abnormal Lab Results - Last 24 Hours (Table) 01/07/18 01/07/18 Range/Units 08:04 08:04 RBC 3.39 L (4.30-5.90) m/uL Hgb 9.0 L (13.0-17.5) gm/dL Hct 29.4 L (39.0-53.0) % MCHC 30.8 L (31.0-37.0) g/dL RDW 16.5 H (11.5-15.5) % Plt Count 137 L (150-450) k/uL Monocytes # 1.2 H (0-1.0) k/uL BUN 45 H (9-20) mg/dL Creatinine 1.60 H (0.66-1.25) mg/dL Total Protein 5.9 L (6.3-8.2) g/dL Microbiology - Last 24 Hours (Table) 01/05/18 22:55 Urine Culture - Final Urine,Clean Catch 01/05/18 16:39 Blood Culture - Preliminary Blood No Growth after 24 hours Assessment and Plan Assessment: ASSESSMENT 1. Dizziness and possible syncope, unsure if he actually had loss of consciousness. 2. Acute on chronic systolic heart failure, ejection fraction 20-25%. Mild exacerbation. 3. History of coronary artery disease status post bypass grafting 4. Permanent atrial fibrillation on long-term anticoagulation with controlled ventricular response 5. Ischemic cardiomyopathy status post ICD implantation 6. COPD 7. Dyslipidemia 8. Hypertension, currently hypotensive. 9. Chronic kidney disease, GFR 48, stage III PLAN Discontinue Entresto. Continue amiodarone 200 mg daily and carvedilol 3.125 mg twice a day. Obtain vital signs every 4 hours. Further recommendations to follow based upon clinical course. Nurse Practitioner note has been reviewed, I agree with a documented findings and plan of care. Patient was seen and examined.
[2018-01-07] MEDS: CARVEDILOL 3.125 MG TAB PO SCH ×2 (13:05→21:29)
[2018-01-07] MEDS: MONTELUKAST 10 MG TAB PO SCH (21:29)
[2018-01-07] MEDS: ATORVASTATIN 10 MG TAB PO SCH (21:29)
[2018-01-07] MEDS: ASPIRIN 81 MG PO SCH (21:29)
--- NOTE | 2018-01-07 23:15 | PN ---
PROGRESS NOTE SUBJECTIVE: This is an 82-year-old white male who has systolic CHF, dizziness secondary to orthostatic hypotension. Prognosis is extremely guarded. The patient is continued on current treatments. Entresto was discontinued due to hypotension. Low-dose lisinopril has been started. Will continue to monitor him and possibly cut down his Lasix due to hypotension. Please see further orders. MMODL / IJN: [id number] /
[2018-01-08] MEDS: HYDROcodone/APAP 10-325MG 1 EACH TAB PO PRN (00:03)
[2018-01-08] MEDS: LEVOTHYROXINE 100 MCG TAB PO SCH (06:22)
[2018-01-08] MEDS: BUDESONIDE 0.5 MG/2 ML NEBU INHALATION SCH ×2 (07:10→20:34)
[2018-01-08] MEDS: IPRATROPIUM-ALBUTEROL 3 ML NEB INHALATION SCH ×4 (07:10→20:34)
[2018-01-08] MEDS: DOCUSATE 100 MG CAP PO SCH (09:10)
[2018-01-08] MEDS: MECLIZINE 12.5 MG TAB PO SCH (09:10)
[2018-01-08] MEDS: FENOFIBRATE 160 MG TAB PO SCH (09:10)
[2018-01-08] MEDS: AMIODARONE 200 MG TAB PO SCH ×2 (09:10→12:34)
[2018-01-08] MEDS: LORATADINE 10 MG TAB PO SCH (09:10)
[2018-01-08] MEDS: APIXABAN 5 MG TAB PO SCH ×2 (09:11→20:58)
[2018-01-08] MEDS: PANTOPRAZOLE 40 MG TABLET PO SCH ×2 (09:11→17:08)
--- NOTE | 2018-01-08 09:47 | P.PN ---
Subjective Progress Note Date: 01/08/18 HPI: 01/05/18- Julian Haynes is an 82-year-old male who presented to the hospital with increasing shortness of breath for about 4-5 days duration. This has been associated with swelling of his lower extremities. He does not follow as an outpatient with the pulmonary physician and with his permission and the recommendation of his primary care physician, I saw him. He does not give any history of fever, chills or rigors over the last few days. He does have a history of obstructive sleep apnea, but was unable to tolerate CPAP in the past. He has a history of cardiomyopathy with an ejection fraction based on echo from 06/16/2018 of 20-25% with severe global hypokinesis. He had been on diuretics which had been increased recently, but he continued to worsen and came in for further evaluation and management. 01/06/18- patient is being seen examined and evaluated on rounds. He is resting up in bed on room air. Does continue to have some shortness of breath with exertion and activity. Cardiology is on complement also following with the patient. Chest x-ray is reviewed and is negative for any acute process. He is afebrile no further complaints. 01/07/18- patient is being seen examined and evaluated today on rounds. He is lying down in bed on room air. States he feels weak. Blood pressure was obtained and is 75/35. Heart rate of 65, SpO2 94% on room air. Patient's a.m. blood pressure meds have been held, cardiology is aware. He is supposed to go for an AICD interrogation today. We will give her 500 mL bolus for his hypotension. He is afebrile. 01/08/18- patient is being seen examined and evaluated today on rounds. He is resting in bed laying down on room air. Did have some hypotension this morning per the nursing staff, cardiology is aware. He did respond well to the 500 mL IV fluid bolus yesterday. Cardiology is currently adjusting his medications. Patient states he feels better than yesterday. Still continues with his shortness of breath cough and congestion. His AICD interrogation was completed and reveals no acute events or arrhythmias. He denies any chest pain or dizziness at this time. Afebrile, no further complaints. Objective - Vital Signs Vital signs: Vital Signs Temp 97.6 F 01/08/18 05:39 Pulse 68 01/08/18 07:23 Resp 16 01/08/18 05:39 BP 108/70 01/08/18 05:39 Pulse Ox 97 01/08/18 05:39 Intake & Output 01/07/18 01/08/18 01/08/18 18:59 06:59 18:59 Output Total 800 380 Balance -800 -380 Output: Urine 800 380 Other: # Voids 3 1 - Exam GENERAL EXAM: Alert, comfortable in no apparent distress. HEAD: Normocephalic. EYES: Normal reaction of pupils, equal size. NOSE: Clear with pink turbinates. THROAT: No erythema or exudates. Mallampati grade 3 NECK: No masses, no JVD. CHEST: No chest wall deformity. LUNGS: Lungs are Diminished at the bases CVS: S1 and S2 normal with systolic mumurs, regular rhythm. ABDOMEN: No hepatosplenomegaly, normal bowel sounds, no guarding or rigidity. EXTREMITIES: +1 edema noted, pedal pulses palpable. CENTRAL NERVOUS SYSTEM: No focal deficits, tone is normal in all 4 extremities. - Labs CBC & Chem 7: 01/07/18 08:04 01/07/18 08:04 Labs: Microbiology - Last 24 Hours (Table) 01/05/18 16:39 Blood Culture - Preliminary Blood No Growth after 48 hours 01/05/18 22:55 Urine Culture - Final Urine,Clean Catch Assessment and Plan Assessment: Assessment Congestive heart failure due to systolic with acute exacerbation Baseline COPD with chronic persistent moderate asthma Obesity Obstructive sleep apnea, untreated which may be contributing to A. fib and cardiomyopathy Atrial fibrillation Coronary artery disease status post coronary artery bypass doubt pulmonary embolism even though d-dimer is elevated as the patient is artery on anticoagulation and clinically seems to have CHF Plan Medications have been reviewed and will be continued as ordered. Maintain negative fluid balance Cardiology on consult, please evaluate if amiodarone should be continued as 200 versus a lower dose Cardiology adjusting current cardiac medications Continue with pulmonary hygiene, coughing and deep breathing exercises, and supportive care. Supplemental oxygen to maintain oxygen saturations of 92% or better. Continue nebulizer treatments. Patient should undergo an outpatient sleep study Encourged undergoing proper treatment for PEG as this is affecting his CHF and atrial fibrillation GI and DVT prophylaxis. We will continue to monitor labs/results and adjust treatment as necessary. Further recommendations pending. I performed an examination of the patient and discussed their management with the nurse practitioner. I have reviewed the nurse practitioner's note and agree with the documented findings and plan of care.
[2018-01-08] MEDS ORDERED: FLUDROCORTISONE 0.1 MG TAB PO STA (11:45)
[2018-01-08] MEDS: CHOLECALCIFEROL 1,000 UNIT TAB PO SCH (12:35)
[2018-01-08] MEDS: FUROSEMIDE 20 MG TAB PO SCH ×2 (12:35→17:08)
[2018-01-08] MEDS: CARVEDILOL 3.125 MG TAB PO SCH ×2 (12:35→20:59)
[2018-01-08] MEDS: FOLIC ACID 1 MG TAB PO SCH (12:36)
[2018-01-08] MEDS ORDERED: methylPREDNISolone SOD SUCCI 40 MG/ML 1 ML VIAL IV STA (12:38)
--- NOTE | 2018-01-08 13:50 | XR ---
EXAMINATION TYPE: XR Hip LT and AP Pelvis DATE OF EXAM: 01/08/2018 COMPARISON: NONE HISTORY: Pain TECHNIQUE: A single AP view of the pelvis is obtained. Two views of the left hip are obtained. FINDINGS: There is arthropathy of the hips bilaterally. Calcifications in the pelvis are likely vasc ular. Degenerative change lower lumbar spine. Previous hernia repair surgery suggested. Vascular calc ifications noted. Nonspherical head of the femoral morphology is suggestive of femoral acetabular imp ingement. IMPRESSION: 1. 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
--- NOTE | 2018-01-08 14:19 | P.PN ---
Subjective Mr. Haynes is a pleasant 82-year-old male past medical history significant for coronary artery disease s/p bypass grafting, permanent atrial fibrillation on alf anticoagulation, ischemic cardiomyopathy with EF 20-25 %, chronic systolic heart failure, hypertension, dyslipidemia, COPD, sleep apnea and ICD implantation. He follows with Dr. Nicholson in the office. We have been asked to see him in consultation for shortness of breath. The patient states on Friday evening he started feeling dizzy. His dizziness was persistent and described as a light-headed sensation. He denies associated chest pain, shortness of breath, nausea, vomiting or diaphoresis. Friday morning he woke up and again felt dizzy, but this time he fell to the ground. Unsure if there was LOC. He had to call EMS to help assist him up due to weakness. He did not come to the hospital for evaluation at that time. He saw Dr. Menon in the office yesterday for a regularly scheduled appointment and was sent to the hospital as a direct admit for further evaluation. He was recently admitted here in November with symptoms of heart failure and was diuresed with IV lasix. He states his breathing has been better since that admission but he still always has mild dyspnea on exertion which is chronic. No EKG on arrival. Chest xray on arrival reveals clearing of heart failure. Repeat is clear with no acute cardiopulmonary process. Laboratory data reviewed, hemoglobin 9.2, platelets 114, d-dimer 0.61, sodium 138, potassium 4.4, creatinine 1.38, cardiac enzymes negative 1, proBNP 4090. Current cardiac medications include Lasix 20 mg twice a day, and entresto 24/26 mg daily, fenofibrate 134 mg daily, simvastatin 20 mg daily, amiodarone 200 mg daily, Eliquis 5 mg twice a day, aspirin 81 mg daily, carvedilol 3.125 mg twice a day. He has been started on Lasix 60 mg IV twice a day since admission per pulmonary. Most recent echocardiogram performed November 2017 reveals diminished left ventricular systolic function with ejection fraction 20-25%. 01/07/2018 Patient was seen and examined today resting comfortably in bed in no acute distress. Blood pressures have remained borderline low with 90 systolic this morning. Nursing staff attempted to get the patient up and helped him to the restroom and he became acutely dizzy. Repeat blood pressure was obtained and was 60 systolic. He was assisted back to a laying position with his feet elevated and his blood pressure improved. Telemetry tracings indicate he is having frequent PVCs. Laboratory data reviewed, hemoglobin 9.0, platelets 137, sodium 137, potassium 4.5, creatinine 1.6. He denies any significant shortness of breath. He also denies symptoms of chest pain, palpitations, nausea, vomiting or diaphoresis. Edema has improved in the lower extremities. Device interrogation reveals no acute events or arrhythmias. 01/08/2018 Mr. Haynes is seen and examined sitting up in the chair eating lunch. His blood pressures have remained on the low side overnight. Entresto has been discontinued as of yesterday. This may take 48-72 hours to clear from his system. He continues to have symptoms of dizziness and is feeling better however not back to his baseline. He denies shortness of breath, chest pain, nausea, vomiting, diaphoresis or palpitations. Questions regarding amiodarone dosing being decreased have been asked. We recommend he continue at 200 mg daily , this is not contributing to his hypotension and should be continued for his atrial fibrillation rhythm control. He continues to have frequent PVC's with bigemminy and trigemminy. Blood pressure this morning was 80/40. Florinef order was given and he did receive. Repeat blood pressure 111/68. Due to his cardiomyopahty a beta mari is imperative however if he continues with hypotension we will consider discontinuing. Objective - Vital Signs Vital signs: Vital Signs Temp 97.6 F 01/08/18 05:39 Pulse 76 01/08/18 12:45 Resp 16 01/08/18 08:00 BP 111/68 01/08/18 12:45 Pulse Ox 97 01/08/18 05:39 Intake & Output 01/07/18 01/08/18 01/08/18 18:59 06:59 18:59 Intake Total 1440 Output Total 800 380 Balance -800 -380 1440 Intake: Oral 1440 Output: Urine 800 380 Other: # Voids 3 1 3 - Exam GENERAL: Well-appearing, well-nourished and in no acute distress. NECK: Supple without JVD or thyromegaly. LUNGS: Breath sounds clear to auscultation bilaterally. Respiration equal and unlabored. No wheezes, rales or rhonchi. HEART: Irregular rate and rhythm with systolic murmurs, no rubs or gallops. S1 and S2 heard. EXTREMITIES: Normal range of motion, no edema. No clubbing or cyanosis. Peripheral pulses intact. - Labs CBC & Chem 7: 01/07/18 08:04 01/07/18 08:04 Labs: Microbiology - Last 24 Hours (Table) 01/05/18 16:39 Blood Culture - Preliminary Blood No Growth after 48 hours 01/05/18 22:55 Urine Culture - Final Urine,Clean Catch Assessment and Plan Assessment: ASSESSMENT 1. Dizziness and possible syncope, unsure if he actually had loss of consciousness. 2. Acute on chronic systolic heart failure, ejection fraction 20-25%. Mild exacerbation. 3. History of coronary artery disease status post bypass grafting 4. Permanent atrial fibrillation on long-term anticoagulation with controlled ventricular response 5. Ischemic cardiomyopathy status post ICD implantation 6. COPD 7. Dyslipidemia 8. Hypertension, currently hypotensive. 9. Chronic kidney disease, GFR 48, stage III PLAN Entresto has been discontinued. Give dose of florinef x1 now until entresto has cleared his system entirely. Add antivert 12.5 mg daily. Continue amiodarone 200 mg daily and carvedilol 3.125 mg twice a day. Obtain vital signs every 4 hours. Further recommendations to follow based upon clinical course. Nurse Practitioner note has been reviewed, I agree with a documented findings and plan of care. Patient was seen and examined.
[2018-01-08] MEDS: ATORVASTATIN 10 MG TAB PO SCH (20:59)
[2018-01-08] MEDS: ASPIRIN 81 MG PO SCH (20:59)
[2018-01-08] MEDS: MONTELUKAST 10 MG TAB PO SCH (21:24)
[2018-01-09] MEDS: LEVOTHYROXINE 100 MCG TAB PO SCH (06:14)
--- NOTE | 2018-01-09 06:20 | PN ---
PROGRESS NOTE SUBJECTIVE: This 82-year-old white male with COPD, generalized weakness, orthostatic hypotension, systolic CHF, generalized weakness. Blood pressure is better with Florinef 0.1 mg daily. Today, blood pressure is elevated over 100 systolic with Florinef. Still had some dizziness, which Antivert has helped . CARDIOVASCULAR: S1, S2. LUNGS: Clear. GI: Soft. HEMATOLOGY: Negative Homans. ASSESSMENT: 1. Vertigo. 2. Orthostatic hypotension. 3. Systolic congestive heart failure. 4. Hypertension. 5. Generalized weakness. 6. Lumbar radiculopathy. Continue with Florinef and Antivert. Monitor for dizziness. Ambulate. Possible discharge home in the morning. MMODL / IJN: [id number] /
[2018-01-09] MEDS: BUDESONIDE 0.5 MG/2 ML NEBU INHALATION SCH (07:42)
[2018-01-09] MEDS: IPRATROPIUM-ALBUTEROL 3 ML NEB INHALATION SCH ×3 (07:42→15:24)
[2018-01-09] MEDS: AMIODARONE 200 MG TAB PO SCH (08:23)
[2018-01-09] MEDS: FENOFIBRATE 160 MG TAB PO SCH (08:23)
[2018-01-09] MEDS: PANTOPRAZOLE 40 MG TABLET PO SCH ×2 (08:23→16:36)
[2018-01-09] MEDS: MECLIZINE 12.5 MG TAB PO SCH (08:23)
[2018-01-09] MEDS: DOCUSATE 100 MG CAP PO SCH (08:23)
[2018-01-09] MEDS: APIXABAN 5 MG TAB PO SCH (08:24)
[2018-01-09] MEDS: LORATADINE 10 MG TAB PO SCH (08:24)
--- NOTE | 2018-01-09 09:54 | P.PN ---
Subjective Progress Note Date: 01/09/18 HPI: 01/05/18- Julian Haynes is an 82-year-old male who presented to the hospital with increasing shortness of breath for about 4-5 days duration. This has been associated with swelling of his lower extremities. He does not follow as an outpatient with the pulmonary physician and with his permission and the recommendation of his primary care physician, I saw him. He does not give any history of fever, chills or rigors over the last few days. He does have a history of obstructive sleep apnea, but was unable to tolerate CPAP in the past. He has a history of cardiomyopathy with an ejection fraction based on echo from 06/16/2018 of 20-25% with severe global hypokinesis. He had been on diuretics which had been increased recently, but he continued to worsen and came in for further evaluation and management. 01/06/18- patient is being seen examined and evaluated on rounds. He is resting up in bed on room air. Does continue to have some shortness of breath with exertion and activity. Cardiology is on complement also following with the patient. Chest x-ray is reviewed and is negative for any acute process. He is afebrile no further complaints. 01/07/18- patient is being seen examined and evaluated today on rounds. He is lying down in bed on room air. States he feels weak. Blood pressure was obtained and is 75/35. Heart rate of 65, SpO2 94% on room air. Patient's a.m. blood pressure meds have been held, cardiology is aware. He is supposed to go for an AICD interrogation today. We will give her 500 mL bolus for his hypotension. He is afebrile. 01/08/18- patient is being seen examined and evaluated today on rounds. He is resting in bed laying down on room air. Did have some hypotension this morning per the nursing staff, cardiology is aware. He did respond well to the 500 mL IV fluid bolus yesterday. Cardiology is currently adjusting his medications. Patient states he feels better than yesterday. Still continues with his shortness of breath cough and congestion. His AICD interrogation was completed and reveals no acute events or arrhythmias. He denies any chest pain or dizziness at this time. Afebrile, no further complaints. 01/09/18- patient is being seen examined and evaluated today on rounds. He is resting up in bedside chair. He has a better blood pressure today. He states he feels better today he is less fatigued. He denies any shortness breath cough or congestion at this time. Discharge planning in process. All labs and reports reviewed Objective - Vital Signs Vital signs: Vital Signs Temp 97.9 F 01/09/18 06:00 Pulse 64 01/09/18 07:57 Resp 16 01/09/18 06:00 BP 112/50 01/09/18 06:00 Pulse Ox 94 L 01/09/18 06:00 Intake & Output 01/08/18 01/09/18 01/09/18 18:59 06:59 18:59 Intake Total 1440 830 Balance 1440 830 Weight 119 kg Intake: Oral 1440 830 Other: # Voids 3 2 - Exam GENERAL EXAM: Alert, comfortable in no apparent distress. HEAD: Normocephalic. EYES: Normal reaction of pupils, equal size. NOSE: Clear with pink turbinates. THROAT: No erythema or exudates. Mallampati grade 3 NECK: No masses, no JVD. CHEST: No chest wall deformity. LUNGS: Lungs are Diminished at the bases CVS: S1 and S2 normal with systolic mumurs, regular rhythm. ABDOMEN: No hepatosplenomegaly, normal bowel sounds, no guarding or rigidity. EXTREMITIES: +1 edema noted, pedal pulses palpable. CENTRAL NERVOUS SYSTEM: No focal deficits, tone is normal in all 4 extremities. - Labs CBC & Chem 7: 01/07/18 08:04 01/07/18 08:04 Labs: Microbiology - Last 24 Hours (Table) 01/05/18 16:39 Blood Culture - Preliminary Blood No Growth after 72 hours Assessment and Plan Assessment: Assessment Congestive heart failure due to systolic with acute exacerbation Baseline COPD with chronic persistent moderate asthma Obesity Obstructive sleep apnea, untreated which may be contributing to A. fib and cardiomyopathy Atrial fibrillation Coronary artery disease status post coronary artery bypass doubt pulmonary embolism even though d-dimer is elevated as the patient is artery on anticoagulation and clinically seems to have CHF Plan Patient cleared from pulmonary standpoint for discharge Medications have been reviewed and will be continued as ordered. Maintain negative fluid balance Cardiology on consult, please evaluate if amiodarone should be continued as 200 versus a lower dose Cardiology adjusting current cardiac medications Continue with pulmonary hygiene, coughing and deep breathing exercises, and supportive care. Supplemental oxygen to maintain oxygen saturations of 92% or better. Continue nebulizer treatments. Patient should undergo an outpatient sleep study Encourged undergoing proper treatment for PEG as this is affecting his CHF and atrial fibrillation GI and DVT prophylaxis. We will continue to monitor labs/results and adjust treatment as necessary. Further recommendations pending. I performed an examination of the patient and discussed their management with the nurse practitioner. I have reviewed the nurse practitioner's note and agree with the documented findings and plan of care.
[2018-01-09 10:06] VITALS: RESP 20
[2018-01-09] MEDS: CHOLECALCIFEROL 1,000 UNIT TAB PO SCH (13:22)
[2018-01-09] MEDS: FUROSEMIDE 20 MG TAB PO SCH ×2 (13:22→13:23)
[2018-01-09] MEDS: FOLIC ACID 1 MG TAB PO SCH (13:22)
[2018-01-09] MEDS: CARVEDILOL 3.125 MG TAB PO SCH (13:23)
--- NOTE | 2018-01-09 13:24 | P.PN ---
Subjective Mr. Haynes is a pleasant 82-year-old male past medical history significant for coronary artery disease s/p bypass grafting, permanent atrial fibrillation on fpc anticoagulation, ischemic cardiomyopathy with EF 20-25 %, chronic systolic heart failure, hypertension, dyslipidemia, COPD, sleep apnea and ICD implantation. He follows with Dr. Nicholson in the office. We have been asked to see him in consultation for shortness of breath. The patient states on Friday evening he started feeling dizzy. His dizziness was persistent and described as a light-headed sensation. He denies associated chest pain, shortness of breath, nausea, vomiting or diaphoresis. Friday morning he woke up and again felt dizzy, but this time he fell to the ground. Unsure if there was LOC. He had to call EMS to help assist him up due to weakness. He did not come to the hospital for evaluation at that time. He saw Dr. Menon in the office yesterday for a regularly scheduled appointment and was sent to the hospital as a direct admit for further evaluation. He was recently admitted here in November with symptoms of heart failure and was diuresed with IV lasix. He states his breathing has been better since that admission but he still always has mild dyspnea on exertion which is chronic. No EKG on arrival. Chest xray on arrival reveals clearing of heart failure. Repeat is clear with no acute cardiopulmonary process. Laboratory data reviewed, hemoglobin 9.2, platelets 114, d-dimer 0.61, sodium 138, potassium 4.4, creatinine 1.38, cardiac enzymes negative 1, proBNP 4090. Current cardiac medications include Lasix 20 mg twice a day, and entresto 24/26 mg daily, fenofibrate 134 mg daily, simvastatin 20 mg daily, amiodarone 200 mg daily, Eliquis 5 mg twice a day, aspirin 81 mg daily, carvedilol 3.125 mg twice a day. He has been started on Lasix 60 mg IV twice a day since admission per pulmonary. Most recent echocardiogram performed November 2017 reveals diminished left ventricular systolic function with ejection fraction 20-25%. 01/07/2018 Patient was seen and examined today resting comfortably in bed in no acute distress. Blood pressures have remained borderline low with 90 systolic this morning. Nursing staff attempted to get the patient up and helped him to the restroom and he became acutely dizzy. Repeat blood pressure was obtained and was 60 systolic. He was assisted back to a laying position with his feet elevated and his blood pressure improved. Telemetry tracings indicate he is having frequent PVCs. Laboratory data reviewed, hemoglobin 9.0, platelets 137, sodium 137, potassium 4.5, creatinine 1.6. He denies any significant shortness of breath. He also denies symptoms of chest pain, palpitations, nausea, vomiting or diaphoresis. Edema has improved in the lower extremities. Device interrogation reveals no acute events or arrhythmias. 01/08/2018 Mr. Haynes is seen and examined sitting up in the chair eating lunch. His blood pressures have remained on the low side overnight. Entresto has been discontinued as of yesterday. This may take 48-72 hours to clear from his system. He continues to have symptoms of dizziness and is feeling better however not back to his baseline. He denies shortness of breath, chest pain, nausea, vomiting, diaphoresis or palpitations. Questions regarding amiodarone dosing being decreased have been asked. We recommend he continue at 200 mg daily , this is not contributing to his hypotension and should be continued for his atrial fibrillation rhythm control. He continues to have frequent PVC's with bigemminy and trigemminy. Blood pressure this morning was 80/40. Florinef order was given and he did receive. Repeat blood pressure 111/68. Due to his cardiomyopahty a beta mari is imperative however if he continues with hypotension we will consider discontinuing. 01/09/2018 Mr. Haynes is seen and examined sitting up in the recliner chair. He states he is starting to feel much better. He has been up back and forth to the bathroom and denies any ongoing dizziness. Blood pressure 115/63 heart rate 97 afebrile maintaining oxygen saturation on room air. Denies symptoms of chest pain, palpitations, shortness of breath or dizziness. Telemetry tracings continue shows sinus rhythm. PVCs have subsided. Objective - Vital Signs Vital signs: Vital Signs Temp 97.9 F 01/09/18 06:00 Pulse 62 01/09/18 11:44 Resp 20 01/09/18 10:03 BP 110/72 01/09/18 10:03 Pulse Ox 94 L 01/09/18 10:03 Intake & Output 01/08/18 01/09/18 01/09/18 18:59 06:59 18:59 Intake Total 1440 830 Balance 1440 830 Weight 119 kg Intake: Oral 1440 830 Other: # Voids 3 2 - Exam GENERAL: Well-appearing, well-nourished and in no acute distress. NECK: Supple without JVD or thyromegaly. LUNGS: Breath sounds clear to auscultation bilaterally. Respiration equal and unlabored. No wheezes, rales or rhonchi. HEART: regular rate and rhythm with systolic murmurs, no rubs or gallops. S1 and S2 heard. EXTREMITIES: Normal range of motion, no edema. No clubbing or cyanosis. Peripheral pulses intact. - Labs CBC & Chem 7: 01/07/18 08:04 01/07/18 08:04 Labs: Microbiology - Last 24 Hours (Table) 01/05/18 16:39 Blood Culture - Preliminary Blood No Growth after 72 hours Assessment and Plan Assessment: ASSESSMENT 1. Dizziness and possible syncope, unsure if he actually had loss of consciousness. 2. Acute on chronic systolic heart failure, ejection fraction 20-25%. Mild exacerbation. 3. History of coronary artery disease status post bypass grafting 4. Permanent atrial fibrillation on long-term anticoagulation with controlled ventricular response 5. Ischemic cardiomyopathy status post ICD implantation 6. COPD 7. Dyslipidemia 8. Hypertension, currently hypotensive. 9. Chronic kidney disease, GFR 48, stage III PLAN Stable from a cardiac perspective. Discontinue and Entresto indefinitely. This has been communicated to the patient. Follow-up in the office with Dr. Nicholson in 2 weeks. At that time he will consider the possibility of adding MIN inhibitor if blood pressure tolerates. Nurse Practitioner note has been reviewed, I agree with a documented findings and plan of care. Patient was seen and examined.
[2018-01-09 16:16] VITALS: BP 103/52; TEMP 97.7
[2018-01-09 17:10] VITALS: PULSE 89
== END 2018-01-09 18:30 | disposition home health service (06) | DRG 291 ==
LOC: 5MS5E 15:06
PROVIDERS: ADMIT Family Medicine; ATTEND Family Medicine
DX: I13.0 Hypertensive heart and chronic kidney disease with heart failure and stage 1 through stage 4 chronic kidney disease, or unspecified chronic kidney disease (principal); I50.23 Acute on chronic systolic (congestive) heart failure; J44.1 Chronic obstructive pulmonary disease with (acute) exacerbation; I47.1 Supraventricular tachycardia; I25.5 Ischemic cardiomyopathy; I48.2 Chronic atrial fibrillation; N18.3 Chronic kidney disease, stage 3 (moderate); I95.1 Orthostatic hypotension; I25.10 Atherosclerotic heart disease of native coronary artery without angina pectoris; J45.40 Moderate persistent asthma, uncomplicated; I25.2 Old myocardial infarction; I49.3 Ventricular premature depolarization; E78.5 Hyperlipidemia, unspecified; G47.33 Obstructive sleep apnea (adult) (pediatric); E66.9 Obesity, unspecified; M54.16 Radiculopathy, lumbar region; G89.29 Other chronic pain; K21.9 Gastro-esophageal reflux disease without esophagitis; K43.9 Ventral hernia without obstruction or gangrene; Z95.1 Presence of aortocoronary bypass graft; Z95.810 Presence of automatic (implantable) cardiac defibrillator; Z85.828 Personal history of other malignant neoplasm of skin; Z87.891 Personal history of nicotine dependence; Z82.3 Family history of stroke; Z82.49 Family history of ischemic heart disease and other diseases of the circulatory system; Z79.82 Long term (current) use of aspirin; Z79.899 Other long term (current) drug therapy; Z79.01 Long term (current) use of anticoagulants; Z85.01 Personal history of malignant neoplasm of esophagus; Z79.890 Hormone replacement therapy; Z88.8 Allergy status to other drugs, medicaments and biological substances; Z87.19 Personal history of other diseases of the digestive system; Z86.14 Personal history of Methicillin resistant Staphylococcus aureus infection; Z86.010 Personal history of colon polyps; Z87.01 Personal history of pneumonia (recurrent); Z86.19 Personal history of other infectious and parasitic diseases; Z68.33 Body mass index [BMI] 33.0-33.9, adult; W19.XXXA Unspecified fall, initial encounter
CPT/HCPCS: 71046; 73502; 80053; 83735; 83880; 84484; 85025; 85379; 87040; 87086; 93005; 94640

== ENCOUNTER 2018-01-20 03:07 | Inpatient (IN) | payer MEDICARE, BC ==
[2018-01-20 03:55] LABS: D-Dimer 0.56 mg/L FEU (<0.60); INR 1.4 (<1.2); Partial Thromboplastin Time 30.1 sec (22.0-30.0); Prothrombin Time 12.9 sec (9.0-12.0)
--- NOTE | 2018-01-20 04:00 | XR ---
EXAM: XR Chest, 1 View CLINICAL HISTORY: dyspnea TECHNIQUE: Frontal view of the chest. COMPARISON: 01/05/18 FINDINGS: Lungs: Subtle irregularity of the margin the right lung with increasing lung markings suggests of early right infiltrate. Pleural space: Unremarkable. No pneumothorax. Heart: Cardiomegaly. Mediastinum: Unremarkable. Bones/joints: Unremarkable. Stable appearance to a device. IMPRESSION: Findings suspicious for early right-sided infiltrate with increased lung markings in the right compared to the prior study
[2018-01-20 04:01] LABS: Albumin 3.6 g/dL (3.5-5.0); Calcium 8.6 mg/dL (8.4-10.2); Magnesium 1.7 mg/dL (1.6-2.3); Potassium 3.1 mmol/L (3.5-5.1); Total Protein 5.9 g/dL (6.3-8.2)
[2018-01-20] MEDS ORDERED: LEVOFLOXACIN 750MG-D5W PMX 750 MG in DEXTROSE/WATER 1 150ML.BAG IVPB STA (04:11)
[2018-01-20 04:17] LABS: Creatine Kinase MB 0.4 ng/mL (0.0-2.4)
[2018-01-20 04:20] LABS: Troponin I 0.046 ng/mL (0.000-0.034)
[2018-01-20 04:25] LABS: Anisocytosis Slight; HCT 27.8 % (39.0-53.0); HGB 8.3 gm/dL (13.0-17.5); Hypochromasia Marked; MCH 26.2 pg (25.0-35.0); MCHC 30.1 g/dL (31.0-37.0); MCV 87.2 fL (80.0-100.0); Mean Platelet Volume 8.1; Platelet Count 150 k/uL (150-450); RBC 3.18 m/uL (4.30-5.90); RDW 16.9 % (11.5-15.5); WBC 11.5 k/uL (3.8-10.6)
--- NOTE | 2018-01-20 04:58 | ED ---
SOB HPI - General Chief Complaint: Shortness of Breath Stated Complaint: SOB Time Seen by Provider: 01/20/18 03:15 Source: patient, EMS Mode of arrival: EMS - History of Present Illness MD Complaint: shortness of breath -: hour(s) Consistency: constant Improves With: nothing Worsens With: nothing Known History Of: COPD Associated Symptoms: denies other symptoms Treatments Prior to Arrival: bronchodilator - Related Data Home Oxygen Therapy: No Home Medications Medication Instructions Recorded Confirmed Loratadine [Claritin] 10 mg PO DAILY 11/18/13 01/20/18 Montelukast Sodium [Singulair] 10 mg PO HS 11/18/13 01/20/18 Simvastatin [Zocor] 20 mg PO HS 11/18/13 01/20/18 Cholecalciferol [Vitamin D3] 2,000 unit PO DAILY 09/18/15 01/20/18 Fenofibrate,Micronized 134 mg PO DAILY 09/18/15 01/20/18 [Fenofibrate] Aspirin EC [Ecotrin Low Dose] 81 mg PO HS 06/19/16 01/20/18 Hydrocodone/Acetaminophen [[place] 1 tab PO Q6H PRN 06/19/16 01/20/18 10-325] Folic Acid 1 mg PO DAILY 04/25/17 01/20/18 Docusate [Colace] 100 mg PO DAILY 06/14/17 01/20/18 Amiodarone [Cordarone] 200 mg PO DAILY 10/22/17 01/20/18 Levothyroxine Sodium [Synthroid] 100 mcg PO DAILY 10/22/17 01/20/18 Carvedilol [Coreg] 3.125 mg PO BID 01/05/18 01/20/18 Omeprazole [PriLOSEC] 40 mg PO HS 01/05/18 01/20/18 Fludrocortisone [Florinef] 0.1 mg PO DAILY 01/20/18 01/20/18 Meclizine HCl 12.5 mg PO BID 01/20/18 01/20/18 Previous Rx's Medication Instructions Recorded Apixaban [Eliquis] 5 mg PO BID #60 tab 06/19/17 Ipratropium-Albuterol Nebulize 3 ml INHALATION RT-QID ampul.neb 12/11/17 [Duoneb 0.5 mg-3 mg/3 ml Soln] Budesonide [Pulmicort] 0.5 mg INHALATION RT-BID nebu 01/09/18 Furosemide [Lasix] 20 mg PO BID@0900,1600 tab 01/09/18 Allergies Allergy/AdvReac Type Severity Reaction Status Date / Time lorazepam [From Ativan] AdvReac Intermediate agitated Verified 01/20/18 06:36 Review of Systems ROS Statement: Those systems with pertinent positive or pertinent negative responses have been documented in the HPI. ROS Other: All systems not noted in ROS Statement are negative. Constitutional: Reports: weakness. Denies: fever, chills Respiratory: Reports: dyspnea. Denies: cough, wheezes Cardiovascular: Denies: chest pain, palpitations, orthopnea, edema, syncope Gastrointestinal: Denies: abdominal pain, vomiting, diarrhea, melena, hematochezia Genitourinary: Denies: hematuria Musculoskeletal: Denies: back pain Skin: Denies: rash Neurological: Denies: headache, weakness, numbness Past Medical History Past Medical History: Asthma, Blood Disorder, Coronary Artery Disease (CAD), Cancer, Heart Failure, COPD, GERD/Reflux, Hyperlipidemia, Hypertension, Myocardial Infarction ([place]), Pneumonia, Sleep Apnea/CPAP/BIPAP, Supraventricular Tachycardia (SVT), Vascular Disorder Additional Past Medical History / Comment(s): PEG pt uses no device, ischemic cardiomyopathy, decreased circulation to legs, esophageal cancer with surgery, paroxysmal SVT, anemia, diverticular dx, hiatal hernia, chronic low back pain, abdominal cellulitis, skin cancer with removal. Last Myocardial Infarction Date:: 1994 History of Any Multi-Drug Resistant Organisms: MRSA Date of last positivie culture/infection: 2012 (per patient MRSA 4 to 5 years ago) MDRO Source:: Unknown Past Surgical History: AICD, Appendectomy, Bowel Resection, Cholecystectomy, Coronary Bypass/CABG, Heart Catheterization, Hernia Repair Additional Past Surgical History / Comment(s): Bowel resections x 2 for obstructions, AICD/pacer, 4vessel CABG, laser spine surgery to low back, colonoscopies, benign polypectomy, multiple abdominal hernia repairs, EGDs q 3 months, abdominal wall seroma removed, skin cancer removals. Past Anesthesia/Blood Transfusion Reactions: No Reported Reaction Type of Cardiac Device: Permanent Pacemaker, AICD Device Placement Date:: 2010 Past Psychological History: No Psychological Hx Reported Smoking Status: Former smoker Past Alcohol Use History: None Reported Past Drug Use History: None Reported - Past Family History Father Family Medical History: Myocardial Infarction ([place]) Additional Family Medical History / Comment(s): Father of a [place] at the age of 73 yrs. Mother Family Medical History: CVA/TIA Additional Family Medical History / Comment(s): Mother of a CVA in her early 80s. General Exam General appearance: alert, in no apparent distress Head exam: Present: atraumatic, normocephalic Eye exam: Present: normal appearance Respiratory exam: Present: normal lung sounds bilaterally. Absent: respiratory distress, wheezes, rales, rhonchi, stridor Cardiovascular Exam: Present: regular rate, normal rhythm, normal heart sounds. Absent: systolic murmur, diastolic murmur, rubs, gallop GI/Abdominal exam: Present: soft, hernia (There is a ventral hernia without tenderness or incarceration.). Absent: distended, tenderness, guarding, rebound , mass Extremities exam: Present: normal inspection, normal capillary refill. Absent: pedal edema, calf tenderness Back exam: Present: normal inspection. Absent: CVA tenderness (R), CVA tenderness (L) Neurological exam: Present: alert Skin exam: Present: warm, dry, intact, normal color. Absent: rash Course Vital Signs 01/20/18 01/20/18 01/20/18 03:19 03:45 04:11 Pulse Rate 85 93 75 Respiratory 18 19 19 Rate Blood Pressure 130/74 115/64 107/51 O2 Sat by Pulse 95 95 95 Oximetry 01/20/18 01/20/18 01/20/18 04:43 05:00 05:41 Pulse Rate 85 86 82 Respiratory 19 20 19 Rate Blood Pressure 99/52 108/63 114/68 O2 Sat by Pulse 96 97 95 Oximetry 01/20/18 01/20/18 06:00 06:30 Pulse Rate 85 Respiratory 19 Rate Blood Pressure 115/57 O2 Sat by Pulse 96 95 Oximetry Medical Decision Making - Lab Data Result diagrams: 01/23/18 04:22 01/23/18 04:22 Lab Results 01/20/18 01/20/18 01/20/18 Range/Units 03:15 03:15 03:15 WBC (3.8-10.6) k/uL RBC (4.30-5.90) m/uL Hgb (13.0-17.5) gm/dL Hct (39.0-53.0) % MCV (80.0-100.0) fL MCH (25.0-35.0) pg MCHC (31.0-37.0) g/dL RDW (11.5-15.5) % Plt Count (150-450) k/uL Neutrophils % (Manual) % Band Neutrophils % % Lymphocytes % (Manual) % Monocytes % (Manual) % Eosinophils % (Manual) % Neutrophils # (Manual) (1.3-7.7) k/uL Lymphocytes # (Manual) (1.0-4.8) k/uL Monocytes # (Manual) (0-1.0) k/uL Eosinophils # (Manual) (0-0.7) k/uL Nucleated RBCs (0-0) /100 WBC Manual Slide Review Polychromasia Hypochromasia Anisocytosis PT 12.9 H (9.0-12.0) sec INR 1.4 H (<1.2) APTT 30.1 H (22.0-30.0) sec D-Dimer 0.56 (<0.60) mg/L FEU Sodium 137 (137-145) mmol/L Potassium 3.1 L (3.5-5.1) mmol/L Chloride 98 (98-107) mmol/L Carbon Dioxide 29 (22-30) mmol/L Anion Gap 10 mmol/L BUN 18 (9-20) mg/dL Creatinine 1.20 (0.66-1.25) mg/dL Est GFR (CKD-EPI)AfAm 65 (>60 ml/min/1.73 sqM) Est GFR (CKD-EPI)NonAf 57 (>60 ml/min/1.73 sqM) Glucose 111 H (74-99) mg/dL Calcium 8.6 (8.4-10.2) mg/dL Magnesium 1.7 (1.6-2.3) mg/dL Total Bilirubin 1.0 (0.2-1.3) mg/dL AST 26 (17-59) U/L ALT 29 (21-72) U/L Alkaline Phosphatase 44 (38-126) U/L Total Creatine Kinase (55-170) U/L CK-MB (CK-2) (0.0-2.4) ng/mL CK-MB (CK-2) Rel Index Troponin I (0.000-0.034) ng/mL NT-Pro-B Natriuret Pep 18061 pg/mL Total Protein 5.9 L (6.3-8.2) g/dL Albumin 3.6 (3.5-5.0) g/dL Urine Color Urine Appearance (Clear) Urine pH (5.0-8.0) Ur Specific [place] (1.001-1.035) Urine Protein (Negative) Urine Glucose (UA) (Negative) Urine Ketones (Negative) Urine Blood (Negative) Urine Nitrite (Negative) Urine Bilirubin (Negative) Urine Urobilinogen (<2.0) mg/dL Ur Leukocyte Esterase (Negative) 01/20/18 01/20/18 01/20/18 Range/Units 03:15 03:15 04:09 WBC 11.5 H (3.8-10.6) k/uL RBC 3.18 L (4.30-5.90) m/uL Hgb 8.3 L (13.0-17.5) gm/dL Hct 27.8 L (39.0-53.0) % MCV 87.2 (80.0-100.0) fL MCH 26.2 (25.0-35.0) pg MCHC 30.1 L (31.0-37.0) g/dL RDW 16.9 H (11.5-15.5) % Plt Count 150 (150-450) k/uL Neutrophils % (Manual) 73 % Band Neutrophils % 2 % Lymphocytes % (Manual) 8 % Monocytes % (Manual) 15 % Eosinophils % (Manual) 2 % Neutrophils # (Manual) 8.60 H (1.3-7.7) k/uL Lymphocytes # (Manual) 0.92 L (1.0-4.8) k/uL Monocytes # (Manual) 1.73 H (0-1.0) k/uL Eosinophils # (Manual) 0.23 (0-0.7) k/uL Nucleated RBCs 0 (0-0) /100 WBC Manual Slide Review Performed Polychromasia Present Hypochromasia Marked Anisocytosis Slight PT (9.0-12.0) sec INR (<1.2) APTT (22.0-30.0) sec D-Dimer (<0.60) mg/L FEU Sodium (137-145) mmol/L Potassium (3.5-5.1) mmol/L Chloride (98-107) mmol/L Carbon Dioxide (22-30) mmol/L Anion Gap mmol/L BUN (9-20) mg/dL Creatinine (0.66-1.25) mg/dL Est GFR (CKD-EPI)AfAm (>60 ml/min/1.73 sqM) Est GFR (CKD-EPI)NonAf (>60 ml/min/1.73 sqM) Glucose (74-99) mg/dL Calcium (8.4-10.2) mg/dL Magnesium (1.6-2.3) mg/dL Total Bilirubin (0.2-1.3) mg/dL AST (17-59) U/L ALT (21-72) U/L Alkaline Phosphatase (38-126) U/L Total Creatine Kinase 30 L (55-170) U/L CK-MB (CK-2) 0.4 (0.0-2.4) ng/mL CK-MB (CK-2) Rel Index 1.3 Troponin I 0.046 H* (0.000-0.034) ng/mL NT-Pro-B Natriuret Pep pg/mL Total Protein (6.3-8.2) g/dL Albumin (3.5-5.0) g/dL Urine Color Yellow Urine Appearance Clear (Clear) Urine pH 5.5 (5.0-8.0) Ur Specific [place] 1.013 (1.001-1.035) Urine Protein Negative (Negative) Urine Glucose (UA) Negative (Negative) Urine Ketones Negative (Negative) Urine Blood Negative (Negative) Urine Nitrite Negative (Negative) Urine Bilirubin Negative (Negative) Urine Urobilinogen 3.0 (<2.0) mg/dL Ur Leukocyte Esterase Negative (Negative) - EKG Data -: EKG Interpreted by [facility] EKG shows normal: sinus rhythm, axis (Rightward), intervals (NE interval 220 ms , consistent with first-degree AV block. QRS duration 162 ms, consistent with left bundle branch block), QRS complexes ((Bundle-branch block) Rate: normal (Rate approximately 87 bpm) Interpretation: other (Similar to comparison EKG from January 05) Disposition Clinical Impression: Pneumonia, CHF exacerbation, Anemia, Hypokalemia, Troponin I above reference range Disposition: ADMITTED IP TO THIS HOSP Condition: Poor
[2018-01-20 05:24] LABS: Appearance,Urine Clear (Clear); Bilirubin,Urine Negative (Negative); Blood,Urine Negative (Negative); Color,Urine Yellow; Glucose,Urine (UA) Negative (Negative); Ketones,Urine Negative (Negative); Leukocyte Esterase,Urine Negative (Negative); Nitrite,Urine Negative (Negative); PH, Urine 5.5 (5.0-8.0); Protein,Urine Negative (Negative); Specific Gravity,Urine 1.013 (1.001-1.035)
[2018-01-20] MEDS ORDERED: POTASSIUM CHLORIDE ER 20 MEQ TAB.ER PO STA (06:14)
[2018-01-20] MEDS ORDERED: PNEUMONIA PROTOCOL UTILIZED 1 EACH MISC PO PRN (06:30)
[2018-01-20] MEDS ORDERED: PIPERACILLIN-TAZOBACTAM 3.375 GM in DEXTROSE/WATER 1 50ML.BAG IVPB STA (06:30)
[2018-01-20] MEDS: HYDROcodone/APAP 10-325MG 1 EACH TAB PO PRN (07:07)
[2018-01-20 07:10] LABS: Band Neutrophils % 2 %; Eosinophils # (M) 0.23 k/uL (0-0.7); Lymphocytes # (M) 0.92 k/uL (1.0-4.8); Monocytes # (M) 1.73 k/uL (0-1.0); Neutrophils % (M) 73 %; Nucleated Red Blood Cells 0 /100 WBC (0-0); Total Cells Counted 100
[2018-01-20 07:11] LABS: Polychromasia Present
[2018-01-20 07:48] LABS: Glucose,Whole Blood 101 mg/dL (75-99)
[2018-01-20] MEDS: IPRATROPIUM-ALBUTEROL 3 ML NEB INHALATION SCH ×4 (08:17→19:37)
[2018-01-20] MEDS: BUDESONIDE 0.5 MG/2 ML NEBU INHALATION SCH ×2 (08:17→19:37)
[2018-01-20] MEDS ORDERED: HEPARIN SODIUM,PORCINE 5,000 UNIT/ML 1 ML VIAL SQ SCH (09:00)
[2018-01-20] MEDS ORDERED: FUROSEMIDE 20 MG TAB PO SCH (09:00)
--- NOTE | 2018-01-20 10:02 | P.CNPUL ---
History of Present Illness Consult date: 01/20/18 Requesting physician: Michael Menon Reason for consult: pneumonia Chief complaint: shortness of breath History of present illness: This is a 82-year-old male patient being seen examined and evaluated today on rounds for consultation. This patient is well-known to our services. This patient was seen in our office on Friday. He states that after that he started to come down with some shortness of breath cough and congestion and ended up coming in into the hospital. Chest x-ray was obtained and he was noted to have right-sided infiltrate with increasing lung markings [place]. [place] [address], elevated troponins of 0.046, hypokalemia of 3.1. He did require 2 L of supplemental oxygen via nasal cannula for oxygen desaturations. He was admitted to the hospital for further evaluation and treatment. This patient does not utilize home oxygen. He is also known to have PEG however is noncompliant and does not use a CPAP. Review of Systems 14 point review of systems was completed and is negative unless noted above in HPI Past Medical History Past Medical History: Atrial Fibrillation, Asthma, Blood Disorder, Coronary Artery Disease (CAD), Cancer, Heart Failure, COPD, GERD/Reflux, Hyperlipidemia, Hypertension, Myocardial Infarction (CT), Pneumonia, Renal Disease, Sleep Apnea/ CPAP/BIPAP, Supraventricular Tachycardia (SVT), Vascular Disorder Additional Past Medical History / Comment(s): PEG pt uses no device, ischemic cardiomyopathy, CKD stage III, recent vertigo, gait dysfunction, falls, decreased circulation to legs, esophageal cancer with surgery, occasional difficulty swallowing, paroxysmal SVT, chronic anemia, diverticular dx, hiatal hernia, chronic low back pain, abdominal cellulitis, skin cancer with removal. Last Myocardial Infarction Date:: 1994 History of Any Multi-Drug Resistant Organisms: MRSA Date of last positivie culture/infection: 2012 (per patient MRSA 4 to 5 years ago) MDRO Source:: urine Past Surgical History: AICD, Appendectomy, Bowel Resection, Cholecystectomy, Coronary Bypass/CABG, Heart Catheterization, Hernia Repair Additional Past Surgical History / Comment(s): Bowel resections x 2 for obstructions, AICD/pacer, 4vessel CABG in 1994, laser spine surgery to low back , colonoscopies, benign polypectomy, multiple abdominal hernia repairs, partial esophagectomy, multiple EGDs abdominal wall seroma removed, skin cancer removals. Past Anesthesia/Blood Transfusion Reactions: No Reported Reaction Type of Cardiac Device: Permanent Pacemaker, AICD Device Placement Date:: 2010 Smoking Status: Former smoker - Past Family History Father Family Medical History: Myocardial Infarction (CT) Additional Family Medical History / Comment(s): Father of a CT at the age of 73 yrs. Mother Family Medical History: CVA/TIA Additional Family Medical History / Comment(s): Mother of a CVA in her early 80s. Medications and Allergies Home Medications Medication Instructions Recorded Confirmed Type Loratadine [Claritin] 10 mg PO DAILY 11/18/13 01/20/18 History Montelukast Sodium [Singulair] 10 mg PO HS 11/18/13 01/20/18 History Simvastatin [Zocor] 20 mg PO HS 11/18/13 01/20/18 History Cholecalciferol [Vitamin D3] 2,000 unit PO DAILY 09/18/15 01/20/18 History Fenofibrate,Micronized 134 mg PO DAILY 09/18/15 01/20/18 History [Fenofibrate] Aspirin EC [Ecotrin Low Dose] 81 mg PO HS 06/19/16 01/20/18 History Hydrocodone/Acetaminophen [Martha 1 tab PO Q6H PRN 06/19/16 01/20/18 History 10-325] Folic Acid 1 mg PO DAILY 04/25/17 01/20/18 History Docusate [Colace] 100 mg PO DAILY 06/14/17 01/20/18 History Apixaban [Eliquis] 5 mg PO BID #60 tab 06/19/17 01/20/18 Rx Amiodarone [Cordarone] 200 mg PO DAILY 10/22/17 01/20/18 History Levothyroxine Sodium [Synthroid] 100 mcg PO DAILY 10/22/17 01/20/18 History Ipratropium-Albuterol Nebulize 3 ml INHALATION RT-QID ampul.neb 12/11/17 Rx [Duoneb 0.5 mg-3 mg/3 ml Soln] Carvedilol [Coreg] 3.125 mg PO BID 01/05/18 01/20/18 History Omeprazole [PriLOSEC] 40 mg PO HS 01/05/18 01/20/18 History Budesonide [Pulmicort] 0.5 mg INHALATION RT-BID nebu 01/09/18 01/20/18 Rx Furosemide [Lasix] 20 mg PO BID@0900,1600 tab 01/09/18 01/20/18 Rx Fludrocortisone [Florinef] 0.1 mg PO DAILY 01/20/18 01/20/18 History Meclizine HCl 12.5 mg PO BID 01/20/18 01/20/18 History Allergies Allergy/AdvReac Type Severity Reaction Status Date / Time lorazepam [From Ativan] AdvReac Intermediate agitated Verified 01/20/18 06:36 Physical Exam Vitals: Vital Signs Pulse Resp BP Pulse Ox 01/20/18 08:28 86 01/20/18 08:20 86 93 L 01/20/18 06:00 85 19 115/57 96 01/20/18 05:41 82 19 114/68 95 01/20/18 05:00 86 20 108/63 97 01/20/18 04:43 85 19 99/52 96 01/20/18 04:11 75 19 107/51 95 01/20/18 03:45 93 19 115/64 95 01/20/18 03:19 85 18 130/74 95 Intake and Output 01/19/18 01/20/18 01/20/18 22:59 06:59 14:59 Other: Weight 113.398 kg GENERAL EXAM: Alert, active, comfortable in no apparent distress. HEAD: Normocephalic. EYES: Normal reaction of pupils, equal size. NOSE: Clear with pink turbinates. THROAT: No erythema or exudates. NECK: No masses, no JVD. CHEST: No chest wall deformity. LUNGS: Lungs noted with some right basilar fine crackles, faint expiratory wheeze CVS: S1 and S2 normal with no audible mumurs, regular rhythm. ABDOMEN: No hepatosplenomegaly, normal bowel sounds, no guarding or rigidity. EXTREMITIES: +1 edema noted, pedal pulses palpable. CENTRAL NERVOUS SYSTEM: No focal deficits, tone is normal in all 4 extremities. Results - Laboratory Findings CBC and BMP: 01/20/18 03:15 01/20/18 03:15 PT/INR, D-dimer PT 12.9 sec (9.0-12.0) H 01/20/18 03:15 INR 1.4 (<1.2) H 01/20/18 03:15 D-Dimer 0.56 mg/L FEU (<0.60) 01/20/18 03:15 Abnormal lab findings: Abnormal Labs 01/20/18 01/20/18 01/20/18 03:15 03:15 03:15 WBC RBC Hgb Hct MCHC RDW Neutrophils # (Manual) Lymphocytes # (Manual) Monocytes # (Manual) PT 12.9 H INR 1.4 H APTT 30.1 H Potassium 3.1 L Glucose 111 H POC Glucose (mg/dL) Total Creatine Kinase 30 L Troponin I 0.046 H* Total Protein 5.9 L 01/20/18 01/20/18 03:15 07:46 WBC 11.5 H RBC 3.18 L Hgb 8.3 L Hct 27.8 L MCHC 30.1 L RDW 16.9 H Neutrophils # (Manual) 8.60 H Lymphocytes # (Manual) 0.92 L Monocytes # (Manual) 1.73 H PT INR APTT Potassium Glucose POC Glucose (mg/dL) 101 H Total Creatine Kinase Troponin I Total Protein - Diagnostic Findings Chest x-ray: report reviewed, image reviewed Assessment and Plan Assessment: Assessment Pneumonia Acute hypoxic respiratory failure requiring supplemental oxygen Acute exacerbation of CHF, systolic Acute exacerbation of chronic persistent moderate asthma Hypokalemia Elevated troponins PEG, noncompliant with CPAP CPAP History of esophageal cancer History of skin cancer Atrial fibrillation Obesity Plan Medications have been reviewed and will be continued as ordered. Antibiotics Obtain sputum culture Cardiology on consult Monitor and replace electrolytes Continue with pulmonary hygiene, coughing and deep breathing exercises, and supportive care. Supplemental oxygen to maintain oxygen saturations of 92% or better. Continue nebulizer treatments. GI and DVT prophylaxis. Increase activity as tolerated, PT and OT Strongly recommend compliance for treatment of his PEG with CPAP We will continue to monitor labs/results and adjust treatment as necessary. Further recommendations pending. I performed an examination of the patient and discussed their management with the nurse practitioner. I have reviewed the nurse practitioner's note and agree with the documented findings and plan of care.
[2018-01-20] MEDS: methylPREDNISolone SOD SUCCI 125 MG/2 ML VIAL IV SCH ×2 (11:33→18:13)
[2018-01-20] MEDS: APIXABAN 5 MG TAB PO SCH ×2 (11:34→20:37)
[2018-01-20] MEDS: CARVEDILOL 3.125 MG TAB PO SCH ×2 (11:34→18:13)
[2018-01-20] MEDS: AMIODARONE 200 MG TAB PO SCH (11:34)
[2018-01-20] MEDS: FUROSEMIDE 10 MG/ML 2 ML VIAL IV SCH ×2 (11:35→20:37)
[2018-01-20] MEDS: DOCUSATE 100 MG CAP PO SCH (15:55)
[2018-01-20] MEDS: FOLIC ACID 1 MG TAB PO SCH (15:55)
[2018-01-20] MEDS: MECLIZINE 12.5 MG TAB PO SCH (15:55)
[2018-01-20] MEDS: FENOFIBRATE 160 MG TAB PO SCH (15:56)
[2018-01-20] MEDS: CHOLECALCIFEROL 1,000 UNIT TAB PO SCH (15:56)
[2018-01-20] MEDS: PIPERACILLIN-TAZOBACTAM 3.375 GM in DEXTROSE/WATER 1 50ML.BAG IVPB SCH (15:56)
--- NOTE | 2018-01-20 19:20 | CONS ---
CONSULTATION CHIEF COMPLAINT: Shortness of breath. Mr. Haynes is an 82-year-old gentleman who was recently discharged home from the hospital following admission with congestive heart failure, comes in complaining of shortness of breath and leg edema. He has known coronary artery disease, status post CABG, chronic atrial fibrillation, ischemic cardiomyopathy with severe LV dysfunction, chronic systolic heart failure, hypertension, dyslipidemia, and status post AICD. The patient complains of shortness of breath and leg edema that has worsened over the last several days. He was admitted with poor oral Lasix of 20 b.i.d. and I am switching it to IV Lasix. He denies paroxysmal nocturnal dyspnea or orthopnea. PAST MEDICAL AND SURGICAL HISTORY: Significant for coronary artery disease, status post CABG, status post AICD, ischemic cardiomyopathy, hypertension, dyslipidemia, paroxysmal SVT, hiatal hernia surgery, chronic back pain. PAST SURGICAL HISTORY: Significant for appendectomy, cholecystectomy, bypass surgery, AICD, and hernia repair. FAMILY HISTORY: Negative for premature coronary artery disease. SOCIAL HISTORY: Negative for smoking, EtOH abuse, or drug abuse. MEDICATIONS: At home included Singulair, Zocor, fenofibrate, aspirin, folic acid, Eliquis 5 b.i.d., amiodarone 200 daily, levothyroxine, DuoNeb, Coreg, Lasix, and Entresto. ALLERGIES: ALLERGIC TO ATIVAN. REVIEW OF SYSTEMS: HEENT is unremarkable. CARDIAC: As described above. RESPIRATORY: As described above. GI: Negative. : Negative. ALLERGY/IMMUNOLOGY: Negative. MUSCULOSKELETAL: Significant for arthritis. PSYCHOSOCIAL: Negative. ENDOCRINE: Negative. DERM: Negative. CONSTITUTIONAL: Negative. ONCOLOGICAL: Negative. The rest of the system review is not relevant. EXAM: Heart rate is 90 beats per minute, blood pressure is 103/54, respiratory rate is 18. Chest exam reveals diminished air entry at the bases. Heart exam reveals first and second heart sounds. Systolic murmur at the apex. Abdomen is soft. Exam of extremities reveals bilateral pitting edema. LABS: Show that the hemoglobin is 8.3. INR is 1.4. Potassium is 3.1, creatinine is 1.2. BNP is elevated at 29,500. Two sets of troponins are in the skinner zone at 0.04 and 0.03. ASSESSMENT: 1. Acute exacerbation of chronic systolic heart failure. 2. Ischemic cardiomyopathy. 3. Coronary artery disease, status post CABG. 4. Mild troponin elevation of unclear clinical significance. 5. Hypokalemia. 6. Chronic atrial fibrillation. PLAN: Will treat the patient with IV Lasix. Continue the Eliquis. Continue Coreg. Resume the amiodarone. Resume the carvedilol and adjust medications as needed based on clinical responses. MMODL / IJN: [id number] /
[2018-01-20] MEDS: ASPIRIN 81 MG PO SCH (20:44)
[2018-01-20] MEDS ORDERED: MONTELUKAST 10 MG TAB PO SCH (21:00)
[2018-01-20] MEDS: MONTELUKAST 10 MG TAB PO SCH (21:03)
[2018-01-20] MEDS: PANTOPRAZOLE 40 MG TABLET PO SCH (21:03)
[2018-01-20] MEDS: ATORVASTATIN 10 MG TAB PO SCH (21:03)
[2018-01-20] MEDS: POTASSIUM CHLORIDE ER 20 MEQ TAB.ER PO SCH (22:26)
[2018-01-21] MEDS: methylPREDNISolone SOD SUCCI 125 MG/2 ML VIAL IV SCH ×5 (00:47→23:08)
[2018-01-21] MEDS: POTASSIUM CHLORIDE ER 20 MEQ TAB.ER PO SCH (00:48)
[2018-01-21] MEDS: PIPERACILLIN-TAZOBACTAM 3.375 GM in DEXTROSE/WATER 1 50ML.BAG IVPB SCH ×4 (00:48→23:15)
[2018-01-21 03:55] LABS: Anisocytosis Slight; HCT 23.9 % (39.0-53.0); HGB 7.4 gm/dL (13.0-17.5); Hypochromasia Marked; MCH 26.7 pg (25.0-35.0); MCHC 30.9 g/dL (31.0-37.0); MCV 86.5 fL (80.0-100.0); Mean Platelet Volume 8.2; Platelet Count 128 k/uL (150-450); RBC 2.76 m/uL (4.30-5.90); RDW 16.5 % (11.5-15.5); WBC 7.7 k/uL (3.8-10.6)
[2018-01-21 04:13] LABS: Calcium 8.5 mg/dL (8.4-10.2); Magnesium 1.8 mg/dL (1.6-2.3); Phosphorus 2.5 mg/dL (2.5-4.5); Potassium 3.9 mmol/L (3.5-5.1)
[2018-01-21] MEDS: LEVOFLOXACIN 750MG-D5W PMX 750 MG in DEXTROSE/WATER 1 150ML.BAG IVPB SCH (04:57)
[2018-01-21] MEDS: LEVOTHYROXINE 100 MCG TAB PO SCH (06:47)
[2018-01-21] MEDS: IPRATROPIUM-ALBUTEROL 3 ML NEB INHALATION SCH ×4 (07:43→19:55)
[2018-01-21] MEDS: BUDESONIDE 0.5 MG/2 ML NEBU INHALATION SCH ×2 (07:43→19:55)
[2018-01-21] MEDS: APIXABAN 5 MG TAB PO SCH (08:05)
[2018-01-21] MEDS: CARVEDILOL 3.125 MG TAB PO SCH ×2 (08:06→17:33)
[2018-01-21] MEDS: MECLIZINE 12.5 MG TAB PO SCH (08:06)
[2018-01-21] MEDS: DOCUSATE 100 MG CAP PO SCH (08:06)
[2018-01-21] MEDS: FUROSEMIDE 10 MG/ML 2 ML VIAL IV SCH ×2 (08:07→20:22)
[2018-01-21] MEDS: AMIODARONE 200 MG TAB PO SCH (08:07)
[2018-01-21] MEDS: FOLIC ACID 1 MG TAB PO SCH (08:07)
[2018-01-21] MEDS: FENOFIBRATE 160 MG TAB PO SCH (08:07)
[2018-01-21] MEDS: CHOLECALCIFEROL 1,000 UNIT TAB PO SCH (08:36)
--- NOTE | 2018-01-21 10:07 | PN ---
PROGRESS NOTE DATE OF SERVICE: 01/21/2018. He continues to have shortness of breath. He however feels like he is doing somewhat better. PHYSICAL EXAMINATION: His respiratory rate is 26, pulse rate of 77, blood pressure 103/62, O2 saturation on 4 L by nasal cannula is 99% with a temperature of 97.9. HEENT reveals no new changes. Chest reveals expiratory wheeze. Cardiovascular system reveals an S1, S2. ABDOMEN: Soft. There is trace to 1+ pedal edema. LABS: Reveal a white count of 7.7, hemoglobin of 7.4. IMPRESSION: At this time: 1. Shortness of breath that is multifactorial in part due to anemia, but also due to asthma with acute exacerbation and congestive heart failure. 2. Obstructive sleep apnea for which the patient has not been treated as he has been noncompliant with his CPAP. 3. Pneumonia. At this point in time continue antibiotics, steroids, bronchodilators and optimize his fluid status. Have Surgery further evaluate this patient regarding anemia. We will follow him closely during his hospital stay. I appreciate the opportunity to participate in his care. MMMELODIEL / JONNATHANN: [id number] /
--- NOTE | 2018-01-21 11:55 | P.CONS ---
History of Present Illness - Reason for Consult Consult date: 01/21/18 Anemia, need for anticoagulation - History of Present Illness The patient is an 82-year-old white male with multiple medical problems. He has extensive cardiac history, including ischemic cardiomyopathy, chronic atrial fibrillation, and congestive heart failure. The patient was recently admitted with congestive heart failure. He was readmitted with increasing shortness of breath and lower extremity swelling. The patient's baseline hemoglobin during 2017 was in the 11-12 range. Since then there has been a downward trend noted gradually with hemoglobin in the 7 range during this admission. Patient is on anticoagulation with Eliquis, for his atrial fibrillation. The consult was placed for further evaluation and recommendations in this regard. The patient denies any obvious bleeding, other than superficial bruising on his extremities. He had a colonoscopy and endoscopy about 2-1/2 years ago, which revealed an early stage cancer in the esophagus. Colonoscopy was apparently negative according to the patient. The patient was seen at the [facility], and had resection attempted which was subsequently aborted. As his tumor was early stage, he was treated with endoscopic mucosal resection. He has been on follow-up at the [facility] since then without evidence of recurrence. His most recent surveillance endoscopy was in 06/06. He also had a PET scan in 10/05, which was also negative for evidence of metastatic disease. Review of Systems Constitutional: Reports fatigue, Reports weakness Eyes: denies blurred vision, denies pain Ears: deny: decreased hearing, ear discharge, earache, tinnitus Ears, nose, mouth and throat: Denies headache, Denies sore throat Cardiovascular: Reports as per HPI, Reports edema, Reports irregular heart beat , Reports leg edema, Reports shortness of breath Respiratory: Reports dyspnea Gastrointestinal: Reports as per HPI Genitourinary: Reports as per HPI Musculoskeletal: Reports muscle weakness Integumentary: Reports as per HPI (Easy superficial bruising on extremities) Neurological: Reports weakness, Denies numbness Psychiatric: Denies anxiety, Denies depression Endocrine: Reports fatigue, Denies weight change Hematologic/Lymphatic: Reports as per HPI Past Medical History Past Medical History: Atrial Fibrillation, Asthma, Blood Disorder, Coronary Artery Disease (CAD), Cancer, Heart Failure, COPD, GERD/Reflux, Hyperlipidemia, Hypertension, Myocardial Infarction ([place]), Pneumonia, Renal Disease, Sleep Apnea/ CPAP/BIPAP, Supraventricular Tachycardia (SVT), Vascular Disorder Additional Past Medical History / Comment(s): PEG pt uses no device, ischemic cardiomyopathy, CKD stage III, recent vertigo, gait dysfunction, falls, decreased circulation to legs, esophageal cancer with surgery, occasional difficulty swallowing, paroxysmal SVT, chronic anemia, diverticular dx, hiatal hernia, chronic low back pain, abdominal cellulitis, skin cancer with removal. Last Myocardial Infarction Date:: 1994 History of Any Multi-Drug Resistant Organisms: MRSA Year Discovered:: 2012 (per patient MRSA 4 to 5 years ago) MDRO Source:: urine Past Surgical History: AICD, Appendectomy, Bowel Resection, Cholecystectomy, Coronary Bypass/CABG, Heart Catheterization, Hernia Repair Additional Past Surgical History / Comment(s): Bowel resections x 2 for obstructions, AICD/pacer, 4vessel CABG in 1994, laser spine surgery to low back , colonoscopies, benign polypectomy, multiple abdominal hernia repairs, partial esophagectomy, multiple EGDs abdominal wall seroma removed, skin cancer removals. Past Anesthesia/Blood Transfusion Reactions: No Reported Reaction Type of Cardiac Device: Permanent Pacemaker, AICD Device Placement Date:: 2010 Smoking Status: Former smoker - Past Family History Father Family Medical History: Myocardial Infarction ([place]) Additional Family Medical History / Comment(s): Father of a [place] at the age of 73 yrs. Mother Family Medical History: CVA/TIA Additional Family Medical History / Comment(s): Mother of a CVA in her early 80s. Medications and Allergies Home Medications Medication Instructions Recorded Confirmed Type Loratadine [Claritin] 10 mg PO DAILY 11/18/13 01/20/18 History Montelukast Sodium [Singulair] 10 mg PO HS 11/18/13 01/20/18 History Simvastatin [Zocor] 20 mg PO HS 11/18/13 01/20/18 History Cholecalciferol [Vitamin D3] 2,000 unit PO DAILY 09/18/15 01/20/18 History Fenofibrate,Micronized 134 mg PO DAILY 09/18/15 01/20/18 History [Fenofibrate] Aspirin EC [Ecotrin Low Dose] 81 mg PO HS 06/19/16 01/20/18 History Hydrocodone/Acetaminophen [Vinton 1 tab PO Q6H PRN 06/19/16 01/20/18 History 10-325] Folic Acid 1 mg PO DAILY 04/25/17 01/20/18 History Docusate [Colace] 100 mg PO DAILY 06/14/17 01/20/18 History Apixaban [Eliquis] 5 mg PO BID #60 tab 06/19/17 01/20/18 Rx Amiodarone [Cordarone] 200 mg PO DAILY 10/22/17 01/20/18 History Levothyroxine Sodium [Synthroid] 100 mcg PO DAILY 10/22/17 01/20/18 History Ipratropium-Albuterol Nebulize 3 ml INHALATION RT-QID ampul.neb 12/11/17 Rx [Duoneb 0.5 mg-3 mg/3 ml Soln] Carvedilol [Coreg] 3.125 mg PO BID 01/05/18 01/20/18 History Omeprazole [PriLOSEC] 40 mg PO HS 01/05/18 01/20/18 History Budesonide [Pulmicort] 0.5 mg INHALATION RT-BID nebu 01/09/18 01/20/18 Rx Furosemide [Lasix] 20 mg PO BID@0900,1600 tab 01/09/18 01/20/18 Rx Fludrocortisone [Florinef] 0.1 mg PO DAILY 01/20/18 01/20/18 History Meclizine HCl 12.5 mg PO BID 01/20/18 01/20/18 History Allergies Allergy/AdvReac Type Severity Reaction Status Date / Time lorazepam [From Ativan] AdvReac Intermediate agitated Verified 01/20/18 06:36 Physical Exam Vitals: Vital Signs Temp Pulse Pulse Resp BP Pulse Ox 01/21/18 11:31 74 01/21/18 08:00 98 F 82 24 117/62 94 L 01/21/18 07:55 85 01/21/18 07:45 77 01/21/18 05:47 95 01/21/18 04:00 97.9 F 70 22 103/62 99 01/21/18 00:00 98.4 F 75 22 111/62 97 01/20/18 20:00 97.9 F 87 14 122/73 95 01/20/18 19:53 87 01/20/18 19:37 82 95 01/20/18 16:00 92 26 H 01/20/18 15:51 99.0 F 88 26 H 103/54 01/20/18 12:00 98.0 F 94 24 111/48 95 01/20/18 11:56 90 Intake and Output 01/20/18 01/21/18 01/21/18 22:59 06:59 14:59 Intake Total 550 450 Output Total 1000 725 320 Balance -450 -275 -320 Intake: Intake, IV Titration 50 200 Amount Levofloxacin 750Mg-D5w 150 Pmx 750 mg In Dextrose/ Water 1 150ml.bag @ 100 mls/hr IVPB Q24H RAMESH Rx#: [id number] Piperacillin-Tazobactam 3 50 50 .375 gm In Dextrose/Water 1 50ml.bag @ 12.5 mls/hr IVPB Q8HR RAMESH Rx#: [id number] Oral 500 250 Output: Urine 1000 725 320 Other: Voiding Method Urinal Urinal Urinal # Voids 2 Weight 113.398 kg 118.1 kg 118.1 kg - Constitutional General appearance: no acute distress - EENT Eyes: EOMI, PERRLA ENT: hearing grossly normal, normal oropharynx - Neck Neck: no lymphadenopathy Thyroid: bilateral: normal size - Respiratory Respiratory: bilateral: rales - Cardiovascular Rhythm: regular Heart sounds: normal: S1, S2 - Gastrointestinal General gastrointestinal: normal bowel sounds, soft - Integumentary A thin skin, with scattered bruises on extremities - Neurologic Neurologic: CNII-XII intact - Musculoskeletal Musculoskeletal: generalized weakness, strength equal bilaterally - Psychiatric Psychiatric: A&O x's 3, appropriate affect Results CBC & Chem 7: 01/21/18 03:36 01/21/18 03:36 Labs: Abnormal Lab Results - Last 24 Hours (Table) 01/20/18 01/21/18 01/21/18 Range/Units 12:40 03:36 03:36 RBC 2.76 L (4.30-5.90) m/uL Hgb 7.4 L (13.0-17.5) gm/dL Hct 23.9 L (39.0-53.0) % MCHC 30.9 L (31.0-37.0) g/dL RDW 16.5 H (11.5-15.5) % Plt Count 128 L (150-450) k/uL Glucose 140 H (74-99) mg/dL Troponin I 0.035 H* (0.000-0.034) ng/mL Microbiology - Last 24 Hours (Table) 01/20/18 07:42 Blood Culture - Preliminary Blood No Growth after 24 hours 01/20/18 07:30 Blood Culture - Preliminary Blood No Growth after 24 hours Comments: Echocardiogram report reviewed. PET scan report reviewed. Chest x-ray: report reviewed CT scan - abdomen: report reviewed (From 2016) CT scan - pelvis: report reviewed (From 2016) Assessment and Plan (1) Anemia Narrative/Plan: At baseline, the patient appeared to have a mild chronic normochromic normocytic anemia. Hemoglobin was generally in the 11-12 range up until late 2016. This was most likely related to his underlying chronic kidney disease. Given the patient's age, there could also be an element of MDS. Over the last few months the hemoglobin has shown a steady downward trend. There has been no obvious bleeding. Creatinine has actually shown an improvement and has been mostly in the near normal range. - The main concern in this situation is acute on chronic anemia, possibly due to blood loss given his ongoing anticoagulation. The patient will have a full anemia workup including iron studies. If these indicate iron deficiency, then repeat GI workup will be recommended. Continue to monitor hemoglobin and transfuse conservatively to keep it above 7. Current Visit: Yes Status: Acute Code(s): D64.9 - ANEMIA, UNSPECIFIED SNOMED Code(s): 624497648 (2) Esophageal cancer Narrative/Plan: Diagnostic antibiotics circumstances as described above in the HPI. The exact pathology is not available to me at this time. It appears that this was an early stage disease treated with local endoscopic resection with no evidence of recurrence since. He had a negative upper endoscopy in 06/06, as well as a negative PET scan in 10/05. He is continuing follow-up at the [facility]. If the patient is found to have evidence of iron deficiency then we would recommend upper and lower endoscopy for further workup at this point. Current Visit: Yes Status: Acute Code(s): C15.9 - MALIGNANT NEOPLASM OF ESOPHAGUS, UNSPECIFIED SNOMED Code(s): 374242792 Plan: The patient has multiple other medical problems. Defer to the admitting service and other consultants for management of those.
--- NOTE | 2018-01-21 14:45 | P.GSCN ---
History of Present Illness Consult date: 01/21/18 History of present illness: 82-year-old male that is admitted secondary to congestive heart failure is known to have an extensive medical history with ischemic cardiomyopathy and chronic atrial fibrillation. He is noted to be on anticoagulation with Eliquis. Surgical consultation was placed due to worsening anemia. The patient is also noted to have a history of early stage esophageal cancer. He states that this was found during upper and lower endoscopy about 2 or 3 years ago. He did follow the [facility] and had multiple endoscopic mucosal resection was performed. He states his last surveillance upper endoscopy was in May 2017. He states he also had a recent PET scan in the past few months that was negative for any evidence of metastatic disease. She denies any blood per rectum. He denies any blood in his bowel movements. He has no recollection of any trauma causing any obvious bleeding. He states he does have occasional bruises along his extremities. She currently denies any weakness or shortness of breath. He denies any dizziness. He has no additional complaints at this time. Review of Systems All systems: negative Past Medical History Past Medical History: Atrial Fibrillation, Asthma, Blood Disorder, Coronary Artery Disease (CAD), Cancer, Heart Failure, COPD, GERD/Reflux, Hyperlipidemia, Hypertension, Myocardial Infarction (OR), Pneumonia, Renal Disease, Sleep Apnea/ CPAP/BIPAP, Supraventricular Tachycardia (SVT), Vascular Disorder Additional Past Medical History / Comment(s): PEG pt uses no device, ischemic cardiomyopathy, CKD stage III, recent vertigo, gait dysfunction, falls, decreased circulation to legs, esophageal cancer with surgery, occasional difficulty swallowing, paroxysmal SVT, chronic anemia, diverticular dx, hiatal hernia, chronic low back pain, abdominal cellulitis, skin cancer with removal. Last Myocardial Infarction Date:: 1994 History of Any Multi-Drug Resistant Organisms: MRSA Year Discovered:: 2012 (per patient MRSA 4 to 5 years ago) MDRO Source:: urine Past Surgical History: AICD, Appendectomy, Bowel Resection, Cholecystectomy, Coronary Bypass/CABG, Heart Catheterization, Hernia Repair Additional Past Surgical History / Comment(s): Bowel resections x 2 for obstructions, AICD/pacer, 4vessel CABG in 1994, laser spine surgery to low back , colonoscopies, benign polypectomy, multiple abdominal hernia repairs, partial esophagectomy, multiple EGDs abdominal wall seroma removed, skin cancer removals. Past Anesthesia/Blood Transfusion Reactions: No Reported Reaction Type of Cardiac Device: Permanent Pacemaker, AICD Device Placement Date:: 2010 Smoking Status: Former smoker - Past Family History Father Family Medical History: Myocardial Infarction (OR) Additional Family Medical History / Comment(s): Father of a OR at the age of 73 yrs. Mother Family Medical History: CVA/TIA Additional Family Medical History / Comment(s): Mother of a CVA in her early 80s. Medications and Allergies Home Medications Medication Instructions Recorded Confirmed Type Loratadine [Claritin] 10 mg PO DAILY 11/18/13 01/20/18 History Montelukast Sodium [Singulair] 10 mg PO HS 11/18/13 01/20/18 History Simvastatin [Zocor] 20 mg PO HS 11/18/13 01/20/18 History Cholecalciferol [Vitamin D3] 2,000 unit PO DAILY 09/18/15 01/20/18 History Fenofibrate,Micronized 134 mg PO DAILY 09/18/15 01/20/18 History [Fenofibrate] Aspirin EC [Ecotrin Low Dose] 81 mg PO HS 06/19/16 01/20/18 History Hydrocodone/Acetaminophen [[place] 1 tab PO Q6H PRN 06/19/16 01/20/18 History 10-325] Folic Acid 1 mg PO DAILY 04/25/17 01/20/18 History Docusate [Colace] 100 mg PO DAILY 06/14/17 01/20/18 History Apixaban [Eliquis] 5 mg PO BID #60 tab 06/19/17 01/20/18 Rx Amiodarone [Cordarone] 200 mg PO DAILY 10/22/17 01/20/18 History Levothyroxine Sodium [Synthroid] 100 mcg PO DAILY 10/22/17 01/20/18 History Ipratropium-Albuterol Nebulize 3 ml INHALATION RT-QID ampul.neb 12/11/17 Rx [Duoneb 0.5 mg-3 mg/3 ml Soln] Carvedilol [Coreg] 3.125 mg PO BID 01/05/18 01/20/18 History Omeprazole [PriLOSEC] 40 mg PO HS 01/05/18 01/20/18 History Budesonide [Pulmicort] 0.5 mg INHALATION RT-BID nebu 01/09/18 01/20/18 Rx Furosemide [Lasix] 20 mg PO BID@0900,1600 tab 01/09/18 01/20/18 Rx Fludrocortisone [Florinef] 0.1 mg PO DAILY 01/20/18 01/20/18 History Meclizine HCl 12.5 mg PO BID 01/20/18 01/20/18 History Allergies Allergy/AdvReac Type Severity Reaction Status Date / Time lorazepam [From Ativan] AdvReac Intermediate agitated Verified 01/20/18 06:36 Surgical - Exam Osteopathic Statement: *. No significant issues noted on an osteopathic structural exam other than those noted in the History and Physical/Consult. Vital Signs Pulse Resp BP Pulse Ox 85 18 130/74 95 01/20/18 03:19 01/20/18 03:19 01/20/18 03:19 01/20/18 03:19 - General well nourished, no distress - Neck trachea midline - Respiratory No difficulty with respiration - Abdomen Soft, nontender, nondistended, no rebound, no guarding, palpable and easily reducible hernia - Neurologic normal sensation - Psychiatric oriented to time, oriented to person, oriented to place, speech is normal, memory intact Results - Labs 01/21/18 03:36 01/21/18 03:36 Abnormal Lab Results - Last 24 Hours (Table) 01/21/18 01/21/18 01/21/18 Range/Units 03:36 03:36 03:36 RBC 2.76 L (4.30-5.90) m/uL Hgb 7.4 L (13.0-17.5) gm/dL Hct 23.9 L (39.0-53.0) % MCHC 30.9 L (31.0-37.0) g/dL RDW 16.5 H (11.5-15.5) % Plt Count 128 L (150-450) k/uL Retic Count 5.0 H (0.5-2.0) % Glucose 140 H (74-99) mg/dL Microbiology - Last 24 Hours (Table) 01/20/18 07:42 Blood Culture - Preliminary Blood No Growth after 24 hours 01/20/18 07:30 Blood Culture - Preliminary Blood No Growth after 24 hours Diabetes panel 01/20/18 01/21/18 Range/Units 19:20 03:36 Sodium 138 (137-145) mmol/L Potassium 3.5 3.9 (3.5-5.1) mmol/L Chloride 100 (98-107) mmol/L Carbon Dioxide 27 (22-30) mmol/L BUN 18 (9-20) mg/dL Creatinine 1.00 (0.66-1.25) mg/dL Glucose 140 H (74-99) mg/dL Calcium 8.5 (8.4-10.2) mg/dL Calcium panel 01/21/18 Range/Units 03:36 Calcium 8.5 (8.4-10.2) mg/dL Phosphorus 2.5 (2.5-4.5) mg/dL Pituitary panel 01/20/18 01/21/18 Range/Units 19:20 03:36 Sodium 138 (137-145) mmol/L Potassium 3.5 3.9 (3.5-5.1) mmol/L Chloride 100 (98-107) mmol/L Carbon Dioxide 27 (22-30) mmol/L BUN 18 (9-20) mg/dL Creatinine 1.00 (0.66-1.25) mg/dL Glucose 140 H (74-99) mg/dL Calcium 8.5 (8.4-10.2) mg/dL Adrenal panel 01/20/18 01/21/18 Range/Units 19:20 03:36 Sodium 138 (137-145) mmol/L Potassium 3.5 3.9 (3.5-5.1) mmol/L Chloride 100 (98-107) mmol/L Carbon Dioxide 27 (22-30) mmol/L BUN 18 (9-20) mg/dL Creatinine 1.00 (0.66-1.25) mg/dL Glucose 140 H (74-99) mg/dL Calcium 8.5 (8.4-10.2) mg/dL Assessment and Plan (1) Anemia Narrative/Plan: The patient is noted to have a downward trend in his hemoglobin over the past few months. He has had no obvious source of bleeding. He denied any blood in his bowel movements. The patient is currently having a full anemia workup by the hematology and oncology team. We will await these results prior to any endoscopic or surgical intervention. If the patient is found to have evidence of iron deficiency, then upper and lower endoscopy would certainly be indicated. This could either be done as an outpatient or with the patient continuing his monitoring at the [facility]. Current Visit: Yes Status: Acute Code(s): D64.9 - ANEMIA, UNSPECIFIED SNOMED Code(s): 689060382
--- NOTE | 2018-01-21 14:59 | P.PN ---
Subjective Progress Note Date: 01/21/18 Principal diagnosis: Congestive heart failure This is a pleasant 82-year-old gentleman with a past medical history significant for coronary artery disease, ischemic cardiomyopathy and status post AICD, chronic atrial fibrillation on oral anticoagulation, as well as multiple comorbid conditions who was admitted to the hospital again with congestive heart failure secondary to systolic dysfunction. The patient shortness of breath is a slightly better today. No chest pain or chest discomfort. The blood pressure has been marginally low. He is making urine on the current dose of Lasix which is 20 mg IV twice a day. The oral anticoagulation is on hold at this point in view of the low hemoglobin. Objective - Vital Signs Vital signs: Vital Signs Temp 98.3 F 01/21/18 12:00 Pulse 75 01/21/18 12:00 Resp 22 01/21/18 12:00 BP 105/52 01/21/18 12:00 Pulse Ox 95 01/21/18 12:00 Intake & Output 01/20/18 01/21/18 01/21/18 18:59 06:59 18:59 Intake Total 840 450 Output Total 1400 725 320 Balance -560 -275 -320 Weight 113.398 kg 118.1 kg 118.1 kg Intake: Intake, IV Titration 100 200 Amount Levofloxacin 750Mg-D5w 150 Pmx 750 mg In Dextrose/ Water 1 150ml.bag @ 100 mls/hr IVPB Q24H [facility] Rx#: [id number] Piperacillin-Tazobactam 3 100 50 .375 gm In Dextrose/Water 1 50ml.bag @ 12.5 mls/hr IVPB Q8HR [facility] Rx#: [id number] Oral 740 250 Output: Urine 1400 725 320 Other: Voiding Method Urinal Urinal Urinal # Voids 2 - Constitutional General appearance: Present: no acute distress - Respiratory Respiratory: bilateral: diminished - Cardiovascular Heart sounds: normal: S1, S2 Abnormal Heart Sounds: Present: systolic murmur - Labs CBC & Chem 7: 01/21/18 03:36 01/21/18 03:36 Labs: Abnormal Lab Results - Last 24 Hours (Table) 01/21/18 01/21/18 01/21/18 Range/Units 03:36 03:36 03:36 RBC 2.76 L (4.30-5.90) m/uL Hgb 7.4 L (13.0-17.5) gm/dL Hct 23.9 L (39.0-53.0) % MCHC 30.9 L (31.0-37.0) g/dL RDW 16.5 H (11.5-15.5) % Plt Count 128 L (150-450) k/uL Retic Count 5.0 H (0.5-2.0) % Glucose 140 H (74-99) mg/dL Microbiology - Last 24 Hours (Table) 01/20/18 07:42 Blood Culture - Preliminary Blood No Growth after 24 hours 01/20/18 07:30 Blood Culture - Preliminary Blood No Growth after 24 hours Assessment and Plan Assessment: Assessment #1 congestive heart failure exacerbation secondary to systolic dysfunction #2 known severe underlying coronary artery disease and status post CABG #3 severe ischemic cardiomyopathy #4 chronic atrial fibrillation #5 multiple comorbid conditions Plan #1 continue the current dose of Lasix which is 20 mg IV twice a day #2 continue monitor the kidney function and electrolytes #3 continue holding the oral anticoagulation in view of the low hemoglobin #4 follow-up with the patient.
--- NOTE | 2018-01-21 20:01 | PN ---
PROGRESS NOTE CHIEF COMPLAINT: White male, admitted with acute hypoxemic respiratory failure and generalized weakness, systolic heart failure, community-acquired pneumonia, cardiomyopathy, atrial fibrillation and worsening anemia. Oral anticoagulation was held today due to low hemoglobin. Temp 98.3, pulse 75, respiratory 18 to 22, blood pressure 105/52. CARDIOVASCULAR: S1, S2. LUNGS: Clear. GI: Soft. HEMATOLOGY: Negative Homans. PSYCH: Fair mood and affect. Hemoglobin 7.4, white count 7.7, BUN of 18, creatinine 1. ASSESSMENT: 1. Congestive heart failure, systolic dysfunction. 2. Coronary artery disease. 3. Severe ischemic cardiomyopathy. 4. Chronic atrial fibrillation. 5. Severe anemia secondary to possible anticoagulation. Cardiology saw the patient today and is continuing Lasix 20 mg. Monitor electrolytes. Hold anticoagulation. Transfuse if it goes below 7. If iron deficiency anemia she may be getting EGD and colonoscopy. Hold anticoagulation for now. Her iron counts are pending. Please see further orders. MMODL / IJN: [id number] /
[2018-01-21] MEDS: PANTOPRAZOLE 40 MG TABLET PO SCH (20:26)
[2018-01-21] MEDS: ATORVASTATIN 10 MG TAB PO SCH (20:26)
[2018-01-21] MEDS: ASPIRIN 81 MG PO SCH (20:26)
[2018-01-21] MEDS: MONTELUKAST 10 MG TAB PO SCH (20:26)
[2018-01-22] MEDS: LEVOFLOXACIN 750MG-D5W PMX 750 MG in DEXTROSE/WATER 1 150ML.BAG IVPB SCH (04:27)
[2018-01-22 04:37] LABS: Albumin 3.2 g/dL (3.5-5.0); Calcium 8.6 mg/dL (8.4-10.2); Potassium 4.1 mmol/L (3.5-5.1); Total Bilirubin 0.5 mg/dL (0.2-1.3); Total Protein 5.3 g/dL (6.3-8.2)
[2018-01-22 04:40] LABS: Anisocytosis Slight; Basophils % (A) 0 %; Eosinophils % (A) 0 %; HCT 24.8 % (39.0-53.0); HGB 7.3 gm/dL (13.0-17.5); Hypochromasia Marked; Lymphocytes # (A) 0.5 k/uL (1.0-4.8); Lymphocytes % (A) 3 %; MCHC 29.5 g/dL (31.0-37.0); MCV 88.1 fL (80.0-100.0); Mean Platelet Volume 8.3; Monocytes # (A) 0.5 k/uL (0-1.0); Monocytes % (A) 4 %; Neutrophils # (A) 13.6 k/uL (1.3-7.7); Neutrophils % (A) 92 %; Platelet Count 165 k/uL (150-450); RBC 2.81 m/uL (4.30-5.90); RDW 16.5 % (11.5-15.5); WBC 14.7 k/uL (3.8-10.6)
[2018-01-22] MEDS: methylPREDNISolone SOD SUCCI 125 MG/2 ML VIAL IV SCH (06:16)
[2018-01-22] MEDS: LEVOTHYROXINE 100 MCG TAB PO SCH (06:17)
[2018-01-22] MEDS: BUDESONIDE 0.5 MG/2 ML NEBU INHALATION SCH ×2 (07:21→18:49)
[2018-01-22] MEDS: IPRATROPIUM-ALBUTEROL 3 ML NEB INHALATION SCH ×4 (07:21→18:49)
[2018-01-22] MEDS: AMIODARONE 200 MG TAB PO SCH (08:52)
[2018-01-22] MEDS: DOCUSATE 100 MG CAP PO SCH (08:52)
[2018-01-22] MEDS: CARVEDILOL 3.125 MG TAB PO SCH ×2 (08:52→16:47)
[2018-01-22] MEDS: CHOLECALCIFEROL 1,000 UNIT TAB PO SCH (08:52)
[2018-01-22] MEDS: MECLIZINE 12.5 MG TAB PO SCH (08:52)
[2018-01-22] MEDS: PIPERACILLIN-TAZOBACTAM 3.375 GM in DEXTROSE/WATER 1 50ML.BAG IVPB SCH ×3 (08:52→23:11)
[2018-01-22] MEDS: FENOFIBRATE 160 MG TAB PO SCH (08:53)
[2018-01-22] MEDS: FUROSEMIDE 10 MG/ML 2 ML VIAL IV SCH (08:53)
[2018-01-22] MEDS: ASPIRIN 325 MG TAB PO SCH (08:59)
[2018-01-22] MEDS ORDERED: SODIUM FERRIC GLUCONAT-SUCROSE 125 MG in SODIUM CHLORIDE 0.9% 100 ML IVPB SCH (09:00)
[2018-01-22] MEDS: methylPREDNISolone SOD SUCCI 40 MG/ML 1 ML VIAL IV SCH ×3 (09:47→23:11)
--- NOTE | 2018-01-22 10:24 | P.PN ---
<Erica Crawford E - Last Filed: 01/22/18 10:19> Subjective Progress Note Date: 01/22/18 History of present illness: This is a 82-year-old male patient being seen examined and evaluated today on rounds for consultation. This patient is well-known to our services. This patient was seen in our office on Friday. He states that after that he started to come down with some shortness of breath cough and congestion and ended up coming in into the hospital. Chest x-ray was obtained and he was noted to have right-sided infiltrate with increasing lung markings [place]. [place] [address], elevated troponins of 0.046, hypokalemia of 3.1. He did require 2 L of supplemental oxygen via nasal cannula for oxygen desaturations. He was admitted to the hospital for further evaluation and treatment. This patient does not utilize home oxygen. He is also known to have PEG however is noncompliant and does not use a CPAP. Interval History: 01/21/18- see Dr MITZY Murrell note 01/22/18-patient is being seen examined and evaluated today on rounds. He is resting up in bed on 3 L of supplemental oxygen. States his breathing is improving. Still occasionally have shortness of breath with cough and congestion. Sputum has been okay. He is afebrile denies any further complaints. Has had a good appetite and has been making good urine. All labs and reports have been reviewed. Objective - Vital Signs Vital signs: Vital Signs Temp 98.3 F 01/22/18 09:00 Pulse 89 01/22/18 09:00 Resp 16 01/22/18 09:00 BP 104/55 01/22/18 09:00 Pulse Ox 96 01/22/18 09:00 Intake & Output 01/21/18 01/22/18 01/22/18 18:59 06:59 18:59 Intake Total 300 Output Total 320 820 Balance -320 -520 Weight 118.1 kg 118.6 kg Intake: Intake, IV Titration 50 Amount Piperacillin-Tazobactam 3 50 .375 gm In Dextrose/Water 1 50ml.bag @ 12.5 mls/hr IVPB Q8HR [facility] Rx#: [id number] Oral 250 Output: Urine 320 820 Other: Voiding Method Urinal Urinal # Voids 2 1 # Bowel Movements 1 - Exam GENERAL EXAM: Alert, active, comfortable in no apparent distress. HEAD: Normocephalic. EYES: Normal reaction of pupils, equal size. NOSE: Clear with pink turbinates. THROAT: No erythema or exudates. NECK: No masses, no JVD. CHEST: No chest wall deformity. LUNGS: Lungs noted with some right basilar fine crackles, faint expiratory wheeze CVS: S1 and S2 normal with no audible mumurs, regular rhythm. ABDOMEN: No hepatosplenomegaly, normal bowel sounds, no guarding or rigidity. EXTREMITIES: +1 edema noted, pedal pulses palpable. CENTRAL NERVOUS SYSTEM: No focal deficits, tone is normal in all 4 extremities. - Labs CBC & Chem 7: 01/22/18 04:13 01/22/18 04:13 Labs: Abnormal Lab Results - Last 24 Hours (Table) 01/21/18 01/22/18 01/22/18 Range/Units 03:36 04:13 04:13 WBC 14.7 H (3.8-10.6) k/uL RBC 2.81 L (4.30-5.90) m/uL Hgb 7.3 L (13.0-17.5) gm/dL Hct 24.8 L (39.0-53.0) % MCHC 29.5 L (31.0-37.0) g/dL RDW 16.5 H (11.5-15.5) % Neutrophils # 13.6 H (1.3-7.7) k/uL Lymphocytes # 0.5 L (1.0-4.8) k/uL Retic Count 5.0 H (0.5-2.0) % BUN 27 H (9-20) mg/dL Glucose 142 H (74-99) mg/dL Alkaline Phosphatase 35 L (38-126) U/L Total Protein 5.3 L (6.3-8.2) g/dL Albumin 3.2 L (3.5-5.0) g/dL Microbiology - Last 24 Hours (Table) 01/20/18 07:42 Blood Culture - Preliminary Blood No Growth after 48 hours 01/20/18 07:30 Blood Culture - Preliminary Blood No Growth after 48 hours 01/20/18 22:40 Gram Stain - Preliminary Sputum Assessment and Plan Assessment: Assessment Pneumonia Acute hypoxic respiratory failure requiring supplemental oxygen Acute exacerbation of CHF, systolic Acute exacerbation of chronic persistent moderate asthma Hypokalemia Elevated troponins PEG, noncompliant with CPAP CPAP History of esophageal cancer History of skin cancer Atrial fibrillation Obesity Iron deficiency anemia Plan Medications have been reviewed and will be continued as ordered. Antibiotics Solu-Medrol taper Obtain sputum culture Cardiology on consult Hematology/oncology and surgical services on consult Monitor and replace electrolytes Continue with pulmonary hygiene, coughing and deep breathing exercises, and supportive care. Supplemental oxygen to maintain oxygen saturations of 92% or better. Continue nebulizer treatments. GI and DVT prophylaxis. Increase activity as tolerated, PT and OT Strongly recommend compliance for treatment of his PEG with CPAP We will continue to monitor labs/results and adjust treatment as necessary. Further recommendations pending. I performed an examination of the patient and discussed their management with the nurse practitioner. I have reviewed the nurse practitioner's note and agree with the documented findings and plan of care. <Di Ibarra - Last Filed: 01/22/18 15:10> Objective - Vital Signs Vital signs: Vital Signs Temp 98.3 F 01/22/18 09:00 Pulse 93 01/22/18 11:18 Resp 16 01/22/18 09:00 BP 104/55 01/22/18 09:00 Pulse Ox 96 01/22/18 09:00 Intake & Output 01/21/18 01/22/18 01/22/18 18:59 06:59 18:59 Intake Total 300 Output Total 320 820 Balance -320 -520 Weight 118.1 kg 118.6 kg Intake: Intake, IV Titration 50 Amount Piperacillin-Tazobactam 3 50 .375 gm In Dextrose/Water 1 50ml.bag @ 12.5 mls/hr IVPB Q8HR [facility] Rx#: [id number] Oral 250 Output: Urine 320 820 Other: Voiding Method Urinal Urinal Urinal # Voids 2 1 # Bowel Movements 1 - Labs CBC & Chem 7: 01/22/18 04:13 01/22/18 04:13 Labs: Abnormal Lab Results - Last 24 Hours (Table) 01/22/18 01/22/18 Range/Units 04:13 04:13 WBC 14.7 H (3.8-10.6) k/uL RBC 2.81 L (4.30-5.90) m/uL Hgb 7.3 L (13.0-17.5) gm/dL Hct 24.8 L (39.0-53.0) % MCHC 29.5 L (31.0-37.0) g/dL RDW 16.5 H (11.5-15.5) % Neutrophils # 13.6 H (1.3-7.7) k/uL Lymphocytes # 0.5 L (1.0-4.8) k/uL BUN 27 H (9-20) mg/dL Glucose 142 H (74-99) mg/dL Alkaline Phosphatase 35 L (38-126) U/L Total Protein 5.3 L (6.3-8.2) g/dL Albumin 3.2 L (3.5-5.0) g/dL Microbiology - Last 24 Hours (Table) 01/20/18 07:42 Blood Culture - Preliminary Blood No Growth after 48 hours 01/20/18 07:30 Blood Culture - Preliminary Blood No Growth after 48 hours 01/20/18 22:40 Gram Stain - Preliminary Sputum Assessment and Plan Assessment: Patient seen and examined. Patient states he is feeling better overall. He wasn't able to sleep well last night. He says he has things on his mind. A friend of his recently "dropped " and it has him thinking. He states his cough is improving, it is productive of phlegm. He denies fevers and chills. Patient is encouraged to be compliant with CPAP due to ongoing cardiac issues. CT abdomen and pelvis to be done today, patient has large coccyx hematoma secondary to a fall about a week ago. He is on Eliquis at home but this has been held at this time. Hemoglobin 7.3, transfuse if <7.0. Repeat CXR in AM. Continue Pulmicort, Duonebs, Levaquin, Singulair. Continue to monitor. PT and OT. Sputum culture pending. ~Di Ibarra,
--- NOTE | 2018-01-22 11:41 | PN ---
PROGRESS NOTE This is an 82-year-old gentleman who was admitted to the hospital with acute exacerbation of chronic congestive heart failure and pneumonia. He is feeling better. Leg edema has improved. Shortness of breath has improved. I am going to switch his Lasix to p.o. We will increase the dose of Lasix on discharge. He came in with 20 b.i.d. we will increase it to 40 in the morning and 20 in the evening. PHYSICAL EXAMINATION: On exam, patient is comfortable at rest. Heart rate is 89 beats per minute. Blood pressure is 104/55. Respiratory rate is 18. Chest exam reveals good air entry bilaterally. Heart exam reveals first and second heart sounds. No gallop. Examination of the extremities reveals trace edema. LABS: Labs show that the hemoglobin is 7.3, platelet count is 165, potassium is 4.1. Hemoglobin has been low since admission at 8.3 down to 7.3. ASSESSMENT: 1. Acute exacerbation of chronic systolic heart failure. 2. History of atrial fibrillation on anticoagulation. 3. Anemia. PLAN: Patient needs to resume his Eliquis whenever it is okay with Hematology and Surgery. MMODL / IJN: [id number] /
[2018-01-22] MEDS: FOLIC ACID 1 MG TAB PO SCH (13:27)
[2018-01-22 13:35] LABS: Iron Saturation 6.62 (15.00-50.00); Protein, Total 5.5 g/dL (6.2-8.2)
--- NOTE | 2018-01-22 15:44 | P.PN ---
Subjective Progress Note Date: 01/22/18 Patient seen and examined at bedside. Gives new information today about his recent history. He states that less than a week ago he did have a fall and did land on his back. He also states that he has a large area of ecchymosis on his back. He currently states he is feeling well. Denies any dizziness. Denies any abdominal pain. Hemoglobin today is 7.3. Objective - Vital Signs Vital signs: Vital Signs Temp 98.6 F 01/22/18 12:00 Pulse 96 01/22/18 15:00 Resp 17 01/22/18 15:00 BP 134/68 01/22/18 13:00 Pulse Ox 96 01/22/18 09:00 Intake & Output 01/21/18 01/22/18 01/22/18 18:59 06:59 18:59 Intake Total 300 Output Total 320 820 225 Balance -320 -520 -225 Weight 118.1 kg 118.6 kg Intake: Intake, IV Titration 50 Amount Piperacillin-Tazobactam 3 50 .375 gm In Dextrose/Water 1 50ml.bag @ 12.5 mls/hr IVPB Q8HR [facility] Rx#: [id number] Oral 250 Output: Urine 320 820 225 Other: Voiding Method Urinal Urinal Urinal # Voids 2 1 # Bowel Movements 1 - Constitutional General appearance: Present: cooperative, no acute distress - EENT ENT: Present: hearing grossly normal - Respiratory Details: No difficulty with respiration - Gastrointestinal Gastrointestinal Comment(s): Soft, nontender, nondistended, no rebound, no guarding - Musculoskeletal Musculoskeletal Comment(s): Notable area of ecchymosis over the sacrum and lower back - Labs CBC & Chem 7: 01/22/18 04:13 01/22/18 04:13 Labs: Abnormal Lab Results - Last 24 Hours (Table) 01/21/18 01/22/18 01/22/18 Range/Units 03:36 04:13 04:13 WBC 14.7 H (3.8-10.6) k/uL RBC 2.81 L (4.30-5.90) m/uL Hgb 7.3 L (13.0-17.5) gm/dL Hct 24.8 L (39.0-53.0) % MCHC 29.5 L (31.0-37.0) g/dL RDW 16.5 H (11.5-15.5) % Neutrophils # 13.6 H (1.3-7.7) k/uL Lymphocytes # 0.5 L (1.0-4.8) k/uL BUN 27 H (9-20) mg/dL Glucose 142 H (74-99) mg/dL Iron 21 L (65-175) ug/dL Iron Saturation 6.62 L (15.00-50.00) Alkaline Phosphatase 35 L (38-126) U/L Total Protein 5.3 L (6.3-8.2) g/dL Total Protein (PEP) 5.5 L (6.2-8.2) g/dL Albumin 3.2 L (3.5-5.0) g/dL Microbiology - Last 24 Hours (Table) 01/20/18 07:42 Blood Culture - Preliminary Blood No Growth after 48 hours 01/20/18 07:30 Blood Culture - Preliminary Blood No Growth after 48 hours 01/20/18 22:40 Gram Stain - Preliminary Sputum Assessment and Plan (1) Anemia Narrative/Plan: The patient is noted to have a downward trend in his hemoglobin over the past few months. He has had no obvious source of bleeding. He denied any blood in his bowel movements. The patient is currently having a full anemia workup by the hematology and oncology team. We will await these results prior to any endoscopic or surgical intervention. The patient did mention today that he has a large area of ecchymosis on his lower back and has a history of a fall within the last week. Due to this new information, we plan on performing a CT of the abdomen and pelvis to evaluate for retroperitoneal bleed. Otherwise, his hemoglobin is stable at 7.3. Decision on anticoagulation to be made after CT of the abdomen and pelvis performed. Current Visit: Yes Status: Acute Code(s): D64.9 - ANEMIA, UNSPECIFIED SNOMED Code(s): 342257571
--- NOTE | 2018-01-22 16:13 | CT ---
EXAMINATION TYPE: CT abdomen pelvis w con DATE OF EXAM: 01/22/2018 COMPARISON: 04/25/2017 HISTORY: Retroperitoneal bleed. Abdominal pain. CT DLP: 2392.4 mGycm Automated exposure control for dose reduction was used. TECHNIQUE: Helical acquisition of images was performed from the lung bases through the pelvis. CONTRAST: Performed without Oral Contrast and with IV Contrast, patient injected with 100ml mL of Isovue M300. FINDINGS: LUNG BASES: There is a trace left and small right pleural effusion with associated bibasilar atelecta sis. There is partial visualization of coronary artery calcifications and a cardiac device. LIVER/GB: Liver is grossly unremarkable. No intrahepatic biliary ductal dilatation. The gallbladder i s surgically absent. Surgical clips are seen posterior to the hepatic parenchyma. PANCREAS: Mild pancreatic parenchymal atrophy is seen.. SPLEEN: No significant abnormality is seen. ADRENALS: No significant abnormality is seen. KIDNEYS: 3 mm left midpole nonobstructing renal calculus is present. Kidneys enhance and excrete symm etrically without hydronephrosis. FREE AIR: No free air is visualized. REPRODUCTIVE ORGANS: No significant abnormality is seen URINARY BLADDER: No significant abnormality is seen. ADENOPATHY: No greater than 1 cm short axis lymph nodes are noted within the abdomen or pelvis. OSSEOUS STRUCTURES: Moderate multilevel degenerative changes of the visualized thoracolumbar spine a re noted. BOWEL: No evidence of bowel dilatation. Scattered colonic diverticula are noted. Nonspecif ic fat stranding is seen within the low pelvis at the inferior margins of the lateral conal fascia. N o evidence of retroperitoneal hematoma. OTHER: There is a supraumbilical midline ventral abdominal hernia containing portions of the stomach and proximal duodenum. Prior ventral hernia repair has been performed. Additionally there is a perium bilical ventral abdominal hernia containing loops of nondilated and nondecompressed small bowel. Anas tomotic site of the small bowel is seen adjacent to this. Very small amount of fluid is seen within t he postsurgical change of the ventral abdominal wall such as on series 3 image 75 likely related to a very small seroma. No extensive inflammatory fat stranding is seen adjacent to this IMPRESSION: 1. NO EVIDENCE OF RETROPERITONEAL HEMORRHAGE. NO EVIDENCE OF CONTRAST EXTRAVASATION FROM THE NORMAL C ALIBER ABDOMINAL AORTA. 2. MULTIPLE VENTRAL ABDOMINAL HERNIAS CONTAINING SMALL BOWEL AND STOMACH. 3. VERY MILD NONSPECIFIC FAT STRANDING WITHIN THE PELVIS LIKELY RELATES TO MESENTERIC CONGESTION.
[2018-01-22] MEDS: FUROSEMIDE 20 MG TAB PO SCH (20:09)
[2018-01-22] MEDS: ATORVASTATIN 10 MG TAB PO SCH (20:09)
[2018-01-22] MEDS: MONTELUKAST 10 MG TAB PO SCH (20:09)
[2018-01-22] MEDS: PANTOPRAZOLE 40 MG TABLET PO SCH (20:09)
--- NOTE | 2018-01-22 21:17 | PN ---
PROGRESS NOTE Julian Haynes is a white male with ecchymosis on his back. His hemoglobin today is 7.3. I stopped his anticoagulation 1 day ago so he could get iron infusions and go back on aspirin 325 mg a day. Temp 98.6, pulse 96, respirations 17, blood pressure 134/68, O2 96% on room air. He remains weak and fatigued. CARDIOVASCULAR: S1, S2. LUNGS: Wheezes x4. HEMATOLOGY: Negative Homans'. PSYCH: Fair mood and affect. NEUROLOGIC: Alert and oriented x3. OPHTHALMOLOGICAL: Pupils equal, round, reactive to light and accommodation. White count 14.7. Albumin 3.2. Iron saturation low at 6.62. Iron was low at 21. CT scan abdomen and pelvis: Retroperitoneal bleed is done. Currently will give iron infusions, hold anticoagulation except for full aspirin. He has systolic CHF, which is currently being treated adequately, as mentioned. CT of the abdomen today shows a nonobstructing calculus in the left kidney. No retroperitoneal hemorrhage and multiple ventral abdominal hernias suspected. His ecchymosis is due to 2 foot fall onto a metal plate he states he had at home which is consistent with the trauma. Anticoagulation with will be held at this point. Continue with current treatment. Possible discharge home in the next couple days. MMODL / IJN: [id number] /
[2018-01-23] MEDS: LEVOFLOXACIN 750MG-D5W PMX 750 MG in DEXTROSE/WATER 1 150ML.BAG IVPB SCH (04:33)
[2018-01-23 05:00] LABS: Albumin 3.3 g/dL (3.5-5.0); Calcium 9.3 mg/dL (8.4-10.2); Potassium 4.6 mmol/L (3.5-5.1); Total Bilirubin 0.4 mg/dL (0.2-1.3); Total Protein 5.5 g/dL (6.3-8.2)
[2018-01-23 05:12] LABS: Anisocytosis Slight; Basophils % (A) 0 %; Eosinophils % (A) 0 %; HCT 26.7 % (39.0-53.0); HGB 7.9 gm/dL (13.0-17.5); Hypochromasia Marked; Lymphocytes # (A) 0.7 k/uL (1.0-4.8); Lymphocytes % (A) 4 %; MCHC 29.5 g/dL (31.0-37.0); Mean Platelet Volume 8.4; Monocytes # (A) 0.6 k/uL (0-1.0); Monocytes % (A) 3 %; Neutrophils # (A) 17.7 k/uL (1.3-7.7); Neutrophils % (A) 92 %; Platelet Count 193 k/uL (150-450); RBC 3.03 m/uL (4.30-5.90); RDW 16.7 % (11.5-15.5); WBC 19.2 k/uL (3.8-10.6)
[2018-01-23] MEDS: LEVOTHYROXINE 100 MCG TAB PO SCH (05:38)
[2018-01-23] MEDS: AMIODARONE 200 MG TAB PO SCH (07:56)
[2018-01-23] MEDS: MECLIZINE 12.5 MG TAB PO SCH (07:56)
[2018-01-23] MEDS: CARVEDILOL 3.125 MG TAB PO SCH ×2 (07:56→16:08)
[2018-01-23] MEDS: DOCUSATE 100 MG CAP PO SCH (07:56)
[2018-01-23] MEDS: FENOFIBRATE 160 MG TAB PO SCH (07:57)
[2018-01-23] MEDS: ASPIRIN 325 MG TAB PO SCH (07:57)
[2018-01-23] MEDS: CHOLECALCIFEROL 1,000 UNIT TAB PO SCH (07:57)
[2018-01-23] MEDS: FUROSEMIDE 40 MG TAB PO SCH (07:58)
[2018-01-23] MEDS: methylPREDNISolone SOD SUCCI 40 MG/ML 1 ML VIAL IV SCH (07:58)
[2018-01-23] MEDS: FOLIC ACID 1 MG TAB PO SCH (07:59)
[2018-01-23] MEDS: PIPERACILLIN-TAZOBACTAM 3.375 GM in DEXTROSE/WATER 1 50ML.BAG IVPB SCH ×2 (08:06→16:08)
[2018-01-23] MEDS: BUDESONIDE 0.5 MG/2 ML NEBU INHALATION SCH ×2 (08:20→19:22)
[2018-01-23] MEDS: IPRATROPIUM-ALBUTEROL 3 ML NEB INHALATION SCH ×4 (08:20→19:22)
--- NOTE | 2018-01-23 09:50 | P.PN ---
Subjective Progress Note Date: 01/23/18 History of present illness: This is a 82-year-old male patient being seen examined and evaluated today on rounds for consultation. This patient is well-known to our services. This patient was seen in our office on Friday. He states that after that he started to come down with some shortness of breath cough and congestion and ended up coming in into the hospital. Chest x-ray was obtained and he was noted to have right-sided infiltrate with increasing lung markings on [place]. [place] [address], elevated troponins of 0.046, hypokalemia of 3.1. He did require 2 L of supplemental oxygen via nasal cannula for oxygen desaturations. He was admitted to the hospital for further evaluation and treatment. This patient does not utilize home oxygen. He is also known to have PEG however is noncompliant and does not use a CPAP. Interval History: 01/21/18- see Dr MITZY Murrell note 01/22/18-patient is being seen examined and evaluated today on rounds. He is resting up in bed on 3 L of supplemental oxygen. States his breathing is improving. Still occasionally have shortness of breath with cough and congestion. Sputum has been okay. He is afebrile denies any further complaints. Has had a good appetite and has been making good urine. All labs and reports have been reviewed. 01/23/18- patient is being seen examined and evaluated today on rounds. He is resting up in bed on 2 L of supplemental oxygen via nasal cannula. His hemoglobin is stable at 7.9. He states he is feeling better today. His Solu- Medrol has been switched over to oral prednisone. CT of the abdomen and pelvis was reviewed and shows no bleed. Shortness of breath continues to improve, patient states he feels close to his baseline. Objective - Vital Signs Vital signs: Vital Signs Temp 97 F L 01/23/18 08:00 Pulse 86 01/23/18 08:34 Resp 17 01/23/18 08:00 BP 111/58 01/23/18 08:00 Pulse Ox 95 01/23/18 08:00 Intake & Output 01/22/18 01/23/18 01/23/18 18:59 06:59 18:59 Output Total 225 600 Balance -225 -600 Weight 118.7 kg Output: Urine 225 600 Other: Voiding Method Urinal Urinal # Voids 1 # Bowel Movements 1 - Exam GENERAL EXAM: Alert, active, comfortable in no apparent distress. HEAD: Normocephalic. EYES: Normal reaction of pupils, equal size. NOSE: Clear with pink turbinates. THROAT: No erythema or exudates. NECK: No masses, no JVD. CHEST: No chest wall deformity. LUNGS: Lungs noted with some right basilar fine crackles, faint expiratory wheeze CVS: S1 and S2 normal with no audible mumurs, regular rhythm. ABDOMEN: No hepatosplenomegaly, normal bowel sounds, no guarding or rigidity. EXTREMITIES: trace edema noted, pedal pulses palpable. CENTRAL NERVOUS SYSTEM: No focal deficits, tone is normal in all 4 extremities. - Labs CBC & Chem 7: 01/23/18 04:22 01/23/18 04:22 Labs: Abnormal Lab Results - Last 24 Hours (Table) 01/21/18 01/23/18 01/23/18 Range/Units 03:36 04:22 04:22 WBC 19.2 H (3.8-10.6) k/uL RBC 3.03 L (4.30-5.90) m/uL Hgb 7.9 L (13.0-17.5) gm/dL Hct 26.7 L (39.0-53.0) % MCHC 29.5 L (31.0-37.0) g/dL RDW 16.7 H (11.5-15.5) % Neutrophils # 17.7 H (1.3-7.7) k/uL Lymphocytes # 0.7 L (1.0-4.8) k/uL BUN 36 H (9-20) mg/dL Glucose 125 H (74-99) mg/dL Iron 21 L (65-175) ug/dL Iron Saturation 6.62 L (15.00-50.00) Alkaline Phosphatase 34 L (38-126) U/L Total Protein 5.5 L (6.3-8.2) g/dL Total Protein (PEP) 5.5 L (6.2-8.2) g/dL Albumin 3.3 L (3.5-5.0) g/dL Microbiology - Last 24 Hours (Table) 01/20/18 07:42 Blood Culture - Preliminary Blood No Growth after 48 hours 01/20/18 07:30 Blood Culture - Preliminary Blood No Growth after 48 hours Assessment and Plan Assessment: Assessment Pneumonia Acute hypoxic respiratory failure requiring supplemental oxygen Acute exacerbation of CHF, systolic Acute exacerbation of chronic persistent moderate asthma Hypokalemia Elevated troponins PEG, noncompliant with CPAP CPAP History of esophageal cancer History of skin cancer Atrial fibrillation Obesity Iron deficiency anemia Plan Respiratory status stable, discharge planning and process Medications have been reviewed and will be continued as ordered. Antibiotics Solu-Medrol tapered to oral prednisone Obtain sputum culture Cardiology on consult Hematology/oncology and surgical services on consult Monitor and replace electrolytes Continue with pulmonary hygiene, coughing and deep breathing exercises, and supportive care. Supplemental oxygen to maintain oxygen saturations of 92% or better. Continue nebulizer treatments. GI and DVT prophylaxis. Increase activity as tolerated, PT and OT Strongly recommend compliance for treatment of his PEG with CPAP We will continue to monitor labs/results and adjust treatment as necessary. Further recommendations pending. I performed an examination of the patient and discussed their management with the nurse practitioner. I have reviewed the nurse practitioner's note and agree with the documented findings and plan of care.
--- NOTE | 2018-01-23 12:17 | P.PN ---
Subjective Progress Note Date: 01/23/18 This is a pleasant 82-year-old gentleman who was admitted to the hospital with acute exacerbation of chronic congestive heart failure as well as pneumonia. He was seen and examined this morning, feeling significantly better overall. Shortness of breath is improved. I pressure 110/60 with a heart rate in the 80s, 95% on 2 L of oxygen. White blood cell count 19.2, hemoglobin 7.9, platelet count 193. Sodium 139, potassium 4.6, BUN 36, creatinine 1.1. CT of the abdomen and pelvis did not reveal any evidence of retroperitoneal hemorrhage , no evidence of contrast extravasation from a normal caliber abdominal aorta. Multiple ventral abdominal hernias. Very mild nonspecific fat stranding within the pelvis. He continues to be in a normal sinus rhythm at this time. Objective - Vital Signs Vital signs: Vital Signs Temp 97 F L 01/23/18 08:00 Pulse 86 01/23/18 08:34 Resp 17 01/23/18 08:00 BP 111/58 01/23/18 08:00 Pulse Ox 95 01/23/18 08:00 Intake & Output 01/22/18 01/23/18 01/23/18 18:59 06:59 18:59 Intake Total 360 Output Total 225 600 50 Balance -225 -600 310 Weight 118.7 kg Intake: Oral 360 Output: Urine 225 600 50 Other: Voiding Method Urinal Urinal # Voids 1 1 # Bowel Movements 1 0 - Exam PHYSICAL EXAMINATION: GENERAL: 82-year-old gentleman in no apparent distress at the time of my examination HEENT: Head is atraumatic, normocephalic. Pupils equal, round. Sclera anicteric. Conjunctiva are clear. Mucous membranes of the mouth are moist. Neck is supple. There is no elevated jugular venous pressure.] bruit is heard. HEART EXAMINATION: Heart S1, S2 normal. No murmur or gallop heard. CHEST EXAMINATION: Lungs are clear to auscultation and precussion. No chest wall tenderness is noted on palpation or with deep breathing. ABDOMEN: Soft, nontender. Bowel sounds are heard. No organomegaly noted. EXTREMITIES: 2+ peripheral pulses with trace evidence of peripheral edema and no calf tenderness noted. NEUROLOGIC patient is awake, alert and oriented ?-3. . - Labs CBC & Chem 7: 01/23/18 04:22 01/23/18 04:22 Labs: Abnormal Lab Results - Last 24 Hours (Table) 01/21/18 01/21/18 01/23/18 Range/Units 03:36 03:36 04:22 WBC 19.2 H (3.8-10.6) k/uL RBC 3.03 L (4.30-5.90) m/uL Hgb 7.9 L (13.0-17.5) gm/dL Hct 26.7 L (39.0-53.0) % MCHC 29.5 L (31.0-37.0) g/dL RDW 16.7 H (11.5-15.5) % Neutrophils # 17.7 H (1.3-7.7) k/uL Lymphocytes # 0.7 L (1.0-4.8) k/uL BUN (9-20) mg/dL Glucose (74-99) mg/dL Iron 21 L (65-175) ug/dL Iron Saturation 6.62 L (15.00-50.00) Alkaline Phosphatase (38-126) U/L Total Protein (6.3-8.2) g/dL Total Protein (PEP) 5.5 L (6.2-8.2) g/dL Albumin (3.5-5.0) g/dL RBC Folate 1,817 H (280 - 791) ng/mL 01/23/18 Range/Units 04:22 WBC (3.8-10.6) k/uL RBC (4.30-5.90) m/uL Hgb (13.0-17.5) gm/dL Hct (39.0-53.0) % MCHC (31.0-37.0) g/dL RDW (11.5-15.5) % Neutrophils # (1.3-7.7) k/uL Lymphocytes # (1.0-4.8) k/uL BUN 36 H (9-20) mg/dL Glucose 125 H (74-99) mg/dL Iron (65-175) ug/dL Iron Saturation (15.00-50.00) Alkaline Phosphatase 34 L (38-126) U/L Total Protein 5.5 L (6.3-8.2) g/dL Total Protein (PEP) (6.2-8.2) g/dL Albumin 3.3 L (3.5-5.0) g/dL RBC Folate (280 - 791) ng/mL Microbiology - Last 24 Hours (Table) 01/20/18 07:42 Blood Culture - Preliminary Blood No Growth after 72 hours 01/20/18 07:30 Blood Culture - Preliminary Blood No Growth after 72 hours Assessment and Plan Plan: Assessment and plan #1 systolic congestive heart failure acute on chronic #2 paroxysmal atrial fibrillation #3 Anemia Plan From cardiology's perspective, we will continue the patient on his current medications. We will also check with surgery regarding resuming the Eliquis the patient was on for anticoagulation. DNP note has been reviewed, I agree with a documented findings and plan of care. Patient was seen and examined.
--- NOTE | 2018-01-23 13:23 | P.PN ---
Subjective Progress Note Date: 01/23/18 Patient seen and examined at bedside. Currently eating lunch. Denies any abdominal pain. CT of the abdomen and pelvis was performed yesterday that did not show any evidence of bleed. Hemoglobin of 7.9. Having bowel movements without any evidence of bleeding. Objective - Vital Signs Vital signs: Vital Signs Temp 97 F L 01/23/18 08:00 Pulse 86 01/23/18 08:34 Resp 17 01/23/18 08:00 BP 111/58 01/23/18 08:00 Pulse Ox 95 01/23/18 08:00 Intake & Output 01/22/18 01/23/18 01/23/18 18:59 06:59 18:59 Intake Total 360 Output Total 225 600 250 Balance -225 -600 110 Weight 118.7 kg Intake: Oral 360 Output: Urine 225 600 250 Other: Voiding Method Urinal Urinal # Voids 1 1 # Bowel Movements 1 0 - Constitutional General appearance: Present: cooperative, no acute distress - Respiratory Details: No difficulty with respirations - Gastrointestinal Gastrointestinal Comment(s): Soft, nontender, nondistended, no rebound, no guarding - Integumentary Integumentary Comment(s): No changes in areas of ecchymosis from previous exams - Psychiatric Psychiatric: Present: A&O x's 3 - Labs CBC & Chem 7: 01/23/18 04:22 01/23/18 04:22 Labs: Abnormal Lab Results - Last 24 Hours (Table) 01/21/18 01/21/18 01/23/18 Range/Units 03:36 03:36 04:22 WBC 19.2 H (3.8-10.6) k/uL RBC 3.03 L (4.30-5.90) m/uL Hgb 7.9 L (13.0-17.5) gm/dL Hct 26.7 L (39.0-53.0) % MCHC 29.5 L (31.0-37.0) g/dL RDW 16.7 H (11.5-15.5) % Neutrophils # 17.7 H (1.3-7.7) k/uL Lymphocytes # 0.7 L (1.0-4.8) k/uL BUN (9-20) mg/dL Glucose (74-99) mg/dL Iron 21 L (65-175) ug/dL Iron Saturation 6.62 L (15.00-50.00) Alkaline Phosphatase (38-126) U/L Total Protein (6.3-8.2) g/dL Total Protein (PEP) 5.5 L (6.2-8.2) g/dL Albumin (3.5-5.0) g/dL RBC Folate 1,817 H (280 - 791) ng/mL 01/23/18 Range/Units 04:22 WBC (3.8-10.6) k/uL RBC (4.30-5.90) m/uL Hgb (13.0-17.5) gm/dL Hct (39.0-53.0) % MCHC (31.0-37.0) g/dL RDW (11.5-15.5) % Neutrophils # (1.3-7.7) k/uL Lymphocytes # (1.0-4.8) k/uL BUN 36 H (9-20) mg/dL Glucose 125 H (74-99) mg/dL Iron (65-175) ug/dL Iron Saturation (15.00-50.00) Alkaline Phosphatase 34 L (38-126) U/L Total Protein 5.5 L (6.3-8.2) g/dL Total Protein (PEP) (6.2-8.2) g/dL Albumin 3.3 L (3.5-5.0) g/dL RBC Folate (280 - 791) ng/mL Microbiology - Last 24 Hours (Table) 01/20/18 07:42 Blood Culture - Preliminary Blood No Growth after 72 hours 01/20/18 07:30 Blood Culture - Preliminary Blood No Growth after 72 hours Assessment and Plan (1) Anemia Narrative/Plan: The patient is noted to have a downward trend in his hemoglobin over the past few months. He has had no obvious source of bleeding. He denied any blood in his bowel movements. The patient is currently having a full anemia workup by the hematology and oncology team. CT of the abdomen and pelvis were reviewed. There is no evidence of any active bleed. Hemoglobin today is 7.9. At this point, the patient can restart his anticoagulation. If any anemia workup studies result in need of endoscopy, the patient will be referred back to the [facility] for additional workup due to his previous workup there for esophageal cancer. Current Visit: Yes Status: Acute Code(s): D64.9 - ANEMIA, UNSPECIFIED SNOMED Code(s): 139078363
[2018-01-23] MEDS: SODIUM FERRIC GLUCONAT-SUCROSE 125 MG in SODIUM CHLORIDE 0.9% 100 ML IVPB SCH (14:03)
[2018-01-23] MEDS: predniSONE 20 MG TAB PO SCH (14:03)
[2018-01-23] MEDS: HYDROcodone/APAP 10-325MG 1 EACH TAB PO PRN (16:15)
--- NOTE | 2018-01-23 18:54 | P.PN ---
Subjective Progress Note Date: 01/23/18 The patient has been transferred out of the ICU. His breathing feels easier. He has not noted any obvious bleeding though he continues to bruise easily on his extremities. No history of fevers/chills/nausea/vomiting/change in bowel habits. Objective - Vital Signs Vital signs: Vital Signs Temp 97 F L 01/23/18 08:00 Pulse 74 01/23/18 16:00 Resp 17 01/23/18 16:00 BP 102/59 01/23/18 16:00 Pulse Ox 92 L 01/23/18 16:00 Intake & Output 01/22/18 01/23/18 01/23/18 18:59 06:59 18:59 Intake Total 840 Output Total 225 600 825 Balance -225 -600 15 Weight 118.7 kg Intake: Oral 840 Output: Urine 225 600 825 Other: Voiding Method Urinal Urinal # Voids 1 1 # Bowel Movements 1 0 - Constitutional General appearance: Present: morbidly obese, no acute distress - EENT Eyes: Present: EOMI ENT: Present: normal oropharynx Ears: right: myringotomy tube - Respiratory Respiratory: bilateral: diminished - Cardiovascular Rhythm: irregularly irregular Heart sounds: normal: S1, S2 - Gastrointestinal General gastrointestinal: Present: normal bowel sounds, soft, ventral hernia - Integumentary Integumentary Comment(s): Thin skin, with scattered extremity bruising. Larger area of bruising in the sacroiliac region - Neurologic Neurologic: Present: CNII-XII intact - Musculoskeletal Musculoskeletal: Present: generalized weakness, strength equal bilaterally - Labs CBC & Chem 7: 01/23/18 04:22 01/23/18 04:22 Labs: Abnormal Lab Results - Last 24 Hours (Table) 01/21/18 01/23/18 01/23/18 Range/Units 03:36 04:22 04:22 WBC 19.2 H (3.8-10.6) k/uL RBC 3.03 L (4.30-5.90) m/uL Hgb 7.9 L (13.0-17.5) gm/dL Hct 26.7 L (39.0-53.0) % MCHC 29.5 L (31.0-37.0) g/dL RDW 16.7 H (11.5-15.5) % Neutrophils # 17.7 H (1.3-7.7) k/uL Lymphocytes # 0.7 L (1.0-4.8) k/uL BUN 36 H (9-20) mg/dL Glucose 125 H (74-99) mg/dL Alkaline Phosphatase 34 L (38-126) U/L Total Protein 5.5 L (6.3-8.2) g/dL Albumin 3.3 L (3.5-5.0) g/dL RBC Folate 1,817 H (280 - 791) ng/mL Microbiology - Last 24 Hours (Table) 01/20/18 22:40 Gram Stain - Final Sputum Sputum Culture - Final 01/20/18 07:42 Blood Culture - Preliminary Blood No Growth after 72 hours 01/20/18 07:30 Blood Culture - Preliminary Blood No Growth after 72 hours Assessment and Plan (1) Anemia Narrative/Plan: The patient's anemia labs are partially resulted. They are consistent with iron deficiency. The implications were discussed in detail with the patient and his family. He was advised that this is suspicious for GI blood loss, especially given his prior history. - The case was extensively discussed with cardiology and the surgical service. Given the possibility of GI blood loss, as well as his prior history, it would be more prudent to hold anticoagulation to the patient has a GI workup done. The surgical service noted that it would be more preferable for the patient to have this done at the [facility], where he is already on follow-up for the same, which is quite reasonable. However the patient needed to be placed back on anticoagulation urgently, then the need for GI evaluation would be more immediate. Case was therefore discussed in detail with cardiology. They confirmed that from their standpoint, it would be okay for the patient to stay off full dose anticoagulation, and remain on aspirin, at least for some weeks. In that case the patient can be discharged on aspirin, and contact the [facility] to schedule a GI workup. - The above plan was discussed in detail with the patient and his family, and all the questions answered - Start the patient on IV iron supplementation - Follow-up as an outpatient to monitor hemoglobin and assess response Current Visit: Yes Status: Acute Code(s): D64.9 - ANEMIA, UNSPECIFIED SNOMED Code(s): 629274825 (2) Esophageal cancer Narrative/Plan: The patient had no evidence of recurrence based on EGD in 06/06, as well as PET scan done earlier this year. As noted above, repeat GI workup is recommended based on new finding of iron deficiency anemia. Current Visit: Yes Status: Acute Code(s): C15.9 - MALIGNANT NEOPLASM OF ESOPHAGUS, UNSPECIFIED SNOMED Code(s): 899190591 Plan: Defer to the admitting service and other consultants for management of his multiple other medical problems
[2018-01-23] MEDS: PANTOPRAZOLE 40 MG TABLET PO SCH (21:10)
[2018-01-23] MEDS: MONTELUKAST 10 MG TAB PO SCH (21:10)
[2018-01-23] MEDS: ATORVASTATIN 10 MG TAB PO SCH (21:10)
[2018-01-23] MEDS: FUROSEMIDE 20 MG TAB PO SCH (21:10)
[2018-01-23] MEDS: APIXABAN 5 MG TAB PO SCH (21:12)
[2018-01-24] MEDS: PIPERACILLIN-TAZOBACTAM 3.375 GM in DEXTROSE/WATER 1 50ML.BAG IVPB SCH ×4 (00:14→22:51)
[2018-01-24] MEDS: LEVOFLOXACIN 750 MG TAB PO SCH (04:49)
[2018-01-24] MEDS: LEVOTHYROXINE 100 MCG TAB PO SCH (06:59)
[2018-01-24] MEDS: CARVEDILOL 3.125 MG TAB PO SCH ×2 (06:59→16:29)
[2018-01-24 07:05] LABS: Anisocytosis Slight; Basophils % (A) 0 %; Eosinophils % (A) 0 %; HCT 27.2 % (39.0-53.0); Hypochromasia Marked; Lymphocytes % (A) 5 %; MCH 25.9 pg (25.0-35.0); MCHC 29.4 g/dL (31.0-37.0); MCV 88.1 fL (80.0-100.0); Mean Platelet Volume 7.8; Monocytes # (A) 0.9 k/uL (0-1.0); Monocytes % (A) 5 %; Neutrophils # (A) 16.8 k/uL (1.3-7.7); Neutrophils % (A) 89 %; Platelet Count 207 k/uL (150-450); RBC 3.09 m/uL (4.30-5.90); RDW 16.8 % (11.5-15.5); WBC 18.9 k/uL (3.8-10.6)
[2018-01-24 07:18] LABS: Albumin 3.2 g/dL (3.5-5.0); Calcium 8.9 mg/dL (8.4-10.2); Potassium 4.3 mmol/L (3.5-5.1); Total Bilirubin 0.6 mg/dL (0.2-1.3); Total Protein 5.4 g/dL (6.3-8.2)
[2018-01-24] MEDS: APIXABAN 5 MG TAB PO SCH (08:13)
[2018-01-24] MEDS: AMIODARONE 200 MG TAB PO SCH (08:13)
[2018-01-24] MEDS: MECLIZINE 12.5 MG TAB PO SCH (08:13)
[2018-01-24] MEDS: predniSONE 20 MG TAB PO SCH (08:13)
[2018-01-24] MEDS: DOCUSATE 100 MG CAP PO SCH (08:13)
[2018-01-24] MEDS: CHOLECALCIFEROL 1,000 UNIT TAB PO SCH (08:13)
[2018-01-24] MEDS: FENOFIBRATE 160 MG TAB PO SCH (08:14)
[2018-01-24] MEDS: FUROSEMIDE 40 MG TAB PO SCH (08:14)
[2018-01-24] MEDS: IPRATROPIUM-ALBUTEROL 3 ML NEB INHALATION SCH ×4 (08:19→20:22)
[2018-01-24] MEDS: BUDESONIDE 0.5 MG/2 ML NEBU INHALATION SCH ×2 (08:19→20:22)
[2018-01-24] MEDS ORDERED: ASPIRIN 81 MG PO SCH (09:00)
--- NOTE | 2018-01-24 11:03 | P.PN ---
Subjective Progress Note Date: 01/24/18 Patient seen and examined at bedside. Comfortable in bed. No continued evidence of bleeding. Tolerating diet. Denies abdominal pain. Having bowel function without blood in stool. Objective - Vital Signs Vital signs: Vital Signs Temp 97.3 F L 01/24/18 08:00 Pulse 80 01/24/18 08:31 Resp 20 01/24/18 08:00 BP 122/55 01/24/18 08:00 Pulse Ox 96 01/24/18 08:00 Intake & Output 01/23/18 01/24/18 01/24/18 18:59 06:59 18:59 Intake Total 840 50 240 Output Total 1075 400 Balance -235 -350 240 Weight 121 kg Intake: Intake, IV Titration 50 Amount Piperacillin-Tazobactam 3 50 .375 gm In Dextrose/Water 1 50ml.bag @ 12.5 mls/hr IVPB Q8HR RAMESH Rx#: [id number] Oral 840 240 Output: Urine 1075 400 Other: Voiding Method Urinal Urinal # Voids 1 # Bowel Movements 0 - Constitutional General appearance: Present: cooperative, no acute distress - Respiratory Details: No difficulty with respiration - Gastrointestinal Gastrointestinal Comment(s): Soft, nontender, nondistended, no rebound, no guarding - Integumentary Integumentary Comment(s): No changes in ecchymosis from previous exams - Psychiatric Psychiatric: Present: A&O x's 3, appropriate affect - Labs CBC & Chem 7: 01/24/18 06:34 01/24/18 06:34 Labs: Abnormal Lab Results - Last 24 Hours (Table) 01/21/18 01/24/18 01/24/18 Range/Units 03:36 06:34 06:34 WBC 18.9 H (3.8-10.6) k/uL RBC 3.09 L (4.30-5.90) m/uL Hgb 8.0 L (13.0-17.5) gm/dL Hct 27.2 L (39.0-53.0) % MCHC 29.4 L (31.0-37.0) g/dL RDW 16.8 H (11.5-15.5) % Neutrophils # 16.8 H (1.3-7.7) k/uL BUN 41 H (9-20) mg/dL Creatinine 1.36 H (0.66-1.25) mg/dL Glucose 108 H (74-99) mg/dL Alkaline Phosphatase 33 L (38-126) U/L Total Protein 5.4 L (6.3-8.2) g/dL Albumin 3.2 L (3.5-5.0) g/dL RBC Folate 1,817 H (280 - 791) ng/mL Microbiology - Last 24 Hours (Table) 01/20/18 07:42 Blood Culture - Preliminary Blood No Growth after 96 hours 01/20/18 07:30 Blood Culture - Preliminary Blood No Growth after 96 hours 01/23/18 15:00 Urine Culture - Preliminary Urine,Voided 01/20/18 22:40 Gram Stain - Final Sputum Sputum Culture - Final Assessment and Plan (1) Anemia Narrative/Plan: The patient is noted to have a downward trend in his hemoglobin over the past few months. He has had no obvious source of bleeding. He denied any blood in his bowel movements. The patient is currently having a full anemia workup by the hematology and oncology team. CT of the abdomen and pelvis were reviewed. There is no evidence of any active bleed. Hemoglobin today is 8. Case was discussed with oncology team yesterday. This case was also been discussed with cardiology by the oncologist. At this point, the patient is stable for high-dose aspirin and can hold full anticoagulation with Elliquis until further workup is performed. The anemia studies do indicate that the patient will need endoscopy for further evaluation. Due to the patient's history of endoscopic mucosal resection at the [facility], it is in his best interest to have endoscopy performed at the [facility] in case any additional procedures needed to be performed. The patient, per cardiology, is stable off of full anticoagulation until this is performed. I did discuss this with the patient. The patient states that he will contact his physician at the [facility] to set up an appointment. Current Visit: Yes Status: Acute Code(s): D64.9 - ANEMIA, UNSPECIFIED SNOMED Code(s): 522038029
--- NOTE | 2018-01-24 11:40 | P.PN ---
Subjective Progress Note Date: 01/24/18 This is a pleasant 82-year-old gentleman who was admitted to the hospital with acute exacerbation of chronic congestive heart failure as well as pneumonia. He was seen and examined this morning, feeling significantly better overall. Shortness of breath is improved. I pressure 110/60 with a heart rate in the 80s, 95% on 2 L of oxygen. White blood cell count 19.2, hemoglobin 7.9, platelet count 193. Sodium 139, potassium 4.6, BUN 36, creatinine 1.1. CT of the abdomen and pelvis did not reveal any evidence of retroperitoneal hemorrhage , no evidence of contrast extravasation from a normal caliber abdominal aorta. Multiple ventral abdominal hernias. Very mild nonspecific fat stranding within the pelvis. He continues to be in a normal sinus rhythm at this time. 01/24/2018 Patient seen and examined this morning, overall doing well. Blood pressure 110/ 60 with a heart rate in the 80s, 93% on room air. White blood cell count 18.9, hemoglobin 8, and again 207. Sodium 139, potassium 4.3, BUN 41, creatinine 1.3. Patient is currently on oral diuretics. Hematology does not want the patient to be on full anticoagulation at this time, recommend currently for the patient to be put on a full aspirin. We will discontinue the Eliquis which was initiated yesterday and continue a full aspirin daily. Objective - Vital Signs Vital signs: Vital Signs Temp 97.3 F L 01/24/18 08:00 Pulse 85 01/24/18 11:33 Resp 22 01/24/18 11:33 BP 111/55 01/24/18 11:33 Pulse Ox 93 L 01/24/18 11:33 Intake & Output 01/23/18 01/24/18 01/24/18 18:59 06:59 18:59 Intake Total 840 50 240 Output Total 1075 400 200 Balance -235 -350 40 Weight 121 kg Intake: Intake, IV Titration 50 Amount Piperacillin-Tazobactam 3 50 .375 gm In Dextrose/Water 1 50ml.bag @ 12.5 mls/hr IVPB Q8HR [facility] Rx#: [id number] Oral 840 240 Output: Urine 1075 400 200 Other: Voiding Method Urinal Urinal # Voids 1 # Bowel Movements 0 1 - Exam PHYSICAL EXAMINATION: GENERAL: 82-year-old gentleman in no apparent distress at the time of my examination HEENT: Head is atraumatic, normocephalic. Pupils equal, round. Sclera anicteric. Conjunctiva are clear. Mucous membranes of the mouth are moist. Neck is supple. There is no elevated jugular venous pressure.] bruit is heard. HEART EXAMINATION: Heart S1, S2 normal. No murmur or gallop heard. CHEST EXAMINATION: Lungs are clear to auscultation and precussion. No chest wall tenderness is noted on palpation or with deep breathing. ABDOMEN: Soft, nontender. Bowel sounds are heard. No organomegaly noted. EXTREMITIES: 2+ peripheral pulses with trace evidence of peripheral edema and no calf tenderness noted. NEUROLOGIC patient is awake, alert and oriented ?-3. . - Labs CBC & Chem 7: 01/24/18 06:34 01/24/18 06:34 Labs: Abnormal Lab Results - Last 24 Hours (Table) 01/21/18 01/24/18 01/24/18 Range/Units 03:36 06:34 06:34 WBC 18.9 H (3.8-10.6) k/uL RBC 3.09 L (4.30-5.90) m/uL Hgb 8.0 L (13.0-17.5) gm/dL Hct 27.2 L (39.0-53.0) % MCHC 29.4 L (31.0-37.0) g/dL RDW 16.8 H (11.5-15.5) % Neutrophils # 16.8 H (1.3-7.7) k/uL BUN 41 H (9-20) mg/dL Creatinine 1.36 H (0.66-1.25) mg/dL Glucose 108 H (74-99) mg/dL Alkaline Phosphatase 33 L (38-126) U/L Total Protein 5.4 L (6.3-8.2) g/dL Albumin 3.2 L (3.5-5.0) g/dL RBC Folate 1,817 H (280 - 791) ng/mL Microbiology - Last 24 Hours (Table) 01/20/18 07:42 Blood Culture - Preliminary Blood No Growth after 96 hours 01/20/18 07:30 Blood Culture - Preliminary Blood No Growth after 96 hours 01/23/18 15:00 Urine Culture - Preliminary Urine,Voided 01/20/18 22:40 Gram Stain - Final Sputum Sputum Culture - Final Assessment and Plan Plan: Assessment and plan #1 systolic congestive heart failure acute on chronic #2 paroxysmal atrial fibrillation #3 Anemia Plan From cardiology's perspective, we will discontinue the Eliquis and increase the aspirin to 325 mg daily. On follow-up we will make an appointment in the office. We will continue to follow this patient with you now on an as-needed basis only, please don't hesitate to call with any questions. DNP note has been reviewed, I agree with a documented findings and plan of care. Patient was seen and examined.
[2018-01-24 12:40] LABS: Albumin 3.24 g/dL (3.80-4.90); Gamma Globulin 0.53 g/dL (0.70-1.50)
[2018-01-24] MEDS: SODIUM FERRIC GLUCONAT-SUCROSE 125 MG in SODIUM CHLORIDE 0.9% 100 ML IVPB SCH (13:59)
[2018-01-24] MEDS: ASPIRIN 325 MG TAB PO SCH (13:59)
[2018-01-24] MEDS: FOLIC ACID 1 MG TAB PO SCH (14:00)
--- NOTE | 2018-01-24 14:06 | P.PN ---
Subjective Progress Note Date: 01/24/18 01/24/2018, This patient is seen and evaluated examined while covering for Dr. Michael Menon, patient sitting upright on the bed breathing comfortably no obvious distress present, patient was admitted into the hospital with problems associated with shortness of breath and developing right-sided infiltrate cardiovascular services has been following Objective - Vital Signs Vital signs: Vital Signs Temp 97.3 F L 01/24/18 08:00 Pulse 84 01/24/18 11:52 Resp 22 01/24/18 11:38 BP 111/55 01/24/18 11:33 Pulse Ox 93 L 01/24/18 11:33 Intake & Output 01/23/18 01/24/18 01/24/18 18:59 06:59 18:59 Intake Total 840 50 240 Output Total 1075 400 200 Balance -235 -350 40 Weight 121 kg Intake: Intake, IV Titration 50 Amount Piperacillin-Tazobactam 3 50 .375 gm In Dextrose/Water 1 50ml.bag @ 12.5 mls/hr IVPB Q8HR [facility] Rx#: [id number] Oral 840 240 Output: Urine 1075 400 200 Other: Voiding Method Urinal Urinal # Voids 1 # Bowel Movements 0 1 - Exam GENERAL EXAM: Alert, active, comfortable in no apparent distress. HEAD: Normocephalic. EYES: Normal reaction of pupils, equal size. NOSE: Clear with pink turbinates. THROAT: No erythema or exudates. NECK: No masses, no JVD. CHEST: No chest wall deformity. LUNGS: Lungs noted with some right basilar fine crackles, faint expiratory wheeze CVS: S1 and S2 normal with no audible mumurs, regular rhythm. ABDOMEN: No hepatosplenomegaly, normal bowel sounds, no guarding or rigidity. EXTREMITIES: trace edema noted, pedal pulses palpable. CENTRAL NERVOUS SYSTEM: No focal deficits, tone is normal in all 4 extremities. - Labs CBC & Chem 7: 01/24/18 06:34 01/24/18 06:34 Labs: Abnormal Lab Results - Last 24 Hours (Table) 01/24/18 01/24/18 Range/Units 06:34 06:34 WBC 18.9 H (3.8-10.6) k/uL RBC 3.09 L (4.30-5.90) m/uL Hgb 8.0 L (13.0-17.5) gm/dL Hct 27.2 L (39.0-53.0) % MCHC 29.4 L (31.0-37.0) g/dL RDW 16.8 H (11.5-15.5) % Neutrophils # 16.8 H (1.3-7.7) k/uL BUN 41 H (9-20) mg/dL Creatinine 1.36 H (0.66-1.25) mg/dL Glucose 108 H (74-99) mg/dL Alkaline Phosphatase 33 L (38-126) U/L Total Protein 5.4 L (6.3-8.2) g/dL Albumin 3.2 L (3.5-5.0) g/dL Microbiology - Last 24 Hours (Table) 01/20/18 07:42 Blood Culture - Preliminary Blood No Growth after 96 hours 01/20/18 07:30 Blood Culture - Preliminary Blood No Growth after 96 hours 01/23/18 15:00 Urine Culture - Preliminary Urine,Voided 01/20/18 22:40 Gram Stain - Final Sputum Sputum Culture - Final Assessment and Plan Assessment: Right lower lobe Pneumonia Acute hypoxic respiratory failure requiring supplemental oxygen Acute exacerbation of CHF, systolic Acute exacerbation of chronic persistent moderate asthma Hypokalemia Elevated troponins PEG, noncompliant with CPAP History of esophageal cancer History of skin cancer Atrial fibrillation Iron deficiency anemia Plan: Continue antibiotics and breathing treatments continue oral steroids, follow-up on culture results and report, hematology service has been following, patient is being planned to be reevaluated at [facility] post discharge, patient has been consult educated about importance to using CPAP machine a regular basis Time with Patient: Greater than 30
[2018-01-24] MEDS: FUROSEMIDE 20 MG TAB PO SCH (21:39)
[2018-01-24] MEDS: guaiFENesin 600 MG TABLET.ER PO PRN (21:39)
[2018-01-24] MEDS: PANTOPRAZOLE 40 MG TABLET PO SCH (21:39)
[2018-01-24] MEDS: ATORVASTATIN 10 MG TAB PO SCH (21:39)
[2018-01-24] MEDS: MONTELUKAST 10 MG TAB PO SCH (21:39)
[2018-01-25] MEDS: LEVOFLOXACIN 750 MG TAB PO SCH (03:36)
[2018-01-25] MEDS: CARVEDILOL 3.125 MG TAB PO SCH ×2 (06:33→17:16)
[2018-01-25] MEDS: LEVOTHYROXINE 100 MCG TAB PO SCH (06:33)
[2018-01-25] MEDS: BUDESONIDE 0.5 MG/2 ML NEBU INHALATION SCH ×2 (07:26→20:19)
[2018-01-25] MEDS: IPRATROPIUM-ALBUTEROL 3 ML NEB INHALATION SCH ×4 (07:26→20:19)
[2018-01-25] MEDS: PIPERACILLIN-TAZOBACTAM 3.375 GM in DEXTROSE/WATER 1 50ML.BAG IVPB SCH ×3 (10:20→23:16)
[2018-01-25] MEDS: MECLIZINE 12.5 MG TAB PO SCH (10:21)
[2018-01-25] MEDS: FUROSEMIDE 40 MG TAB PO SCH (10:21)
[2018-01-25] MEDS: FENOFIBRATE 160 MG TAB PO SCH (10:21)
[2018-01-25] MEDS: CHOLECALCIFEROL 1,000 UNIT TAB PO SCH (10:21)
[2018-01-25] MEDS: DOCUSATE 100 MG CAP PO SCH (10:21)
[2018-01-25] MEDS: AMIODARONE 200 MG TAB PO SCH (10:21)
[2018-01-25] MEDS: predniSONE 20 MG TAB PO SCH (10:21)
[2018-01-25] MEDS: ASPIRIN 325 MG TAB PO SCH (10:21)
[2018-01-25] MEDS: guaiFENesin 600 MG TABLET.ER PO PRN ×2 (10:29→21:15)
--- NOTE | 2018-01-25 10:55 | P.PN ---
Subjective Progress Note Date: 01/25/18 History of present illness: This is a 82-year-old male patient being seen examined and evaluated today on rounds for consultation. This patient is well-known to our services. This patient was seen in our office on Friday. He states that after that he started to come down with some shortness of breath cough and congestion and ended up coming in into the hospital. Chest x-ray was obtained and he was noted to have right-sided infiltrate with increasing lung markings [place]. [place] [address], elevated troponins of 0.046, hypokalemia of 3.1. He did require 2 L of supplemental oxygen via nasal cannula for oxygen desaturations. He was admitted to the hospital for further evaluation and treatment. This patient does not utilize home oxygen. He is also known to have PEG however is noncompliant and does not use a CPAP. Interval History: 01/21/18- see Dr MITZY Murrell note 01/22/18-patient is being seen examined and evaluated today on rounds. He is resting up in bed on 3 L of supplemental oxygen. States his breathing is improving. Still occasionally have shortness of breath with cough and congestion. Sputum has been okay. He is afebrile denies any further complaints. Has had a good appetite and has been making good urine. All labs and reports have been reviewed. 01/23/18- patient is being seen examined and evaluated today on rounds. He is resting up in bed on 2 L of supplemental oxygen via nasal cannula. His hemoglobin is stable at 7.9. He states he is feeling better today. His Solu- Medrol has been switched over to oral prednisone. CT of the abdomen and pelvis was reviewed and shows no bleed. Shortness of breath continues to improve, patient states he feels close to his baseline. 01/24/18- please see Dr. Ware's note for coverage 01/25/18- patient is being seen examined and evaluated today on rounds. He is resting in bed on supplemental oxygen. He is tearful today. States his breathing is relatively the same. He is afebrile no further complaints. We are also covering for Dr. Menon today Objective - Vital Signs Vital signs: Vital Signs Temp 97.5 F L 01/25/18 03:51 Pulse 92 01/25/18 07:42 Resp 16 01/25/18 03:51 BP 115/66 01/25/18 03:51 Pulse Ox 96 01/25/18 03:51 Intake & Output 01/24/18 01/25/18 01/25/18 18:59 06:59 18:59 Intake Total 480 240 Output Total 675 450 100 Balance -195 -450 140 Weight 105 kg Intake: Oral 480 240 Output: Urine 675 450 100 Other: Voiding Method Urinal Urinal # Voids 2 1 # Bowel Movements 1 - Exam GENERAL EXAM: Alert, active, comfortable in no apparent distress. HEAD: Normocephalic. EYES: Normal reaction of pupils, equal size. NOSE: Clear with pink turbinates. THROAT: No erythema or exudates. NECK: No masses, no JVD. CHEST: No chest wall deformity. LUNGS: Lungs noted with some, faint expiratory wheeze CVS: S1 and S2 normal with no audible mumurs, regular rhythm. ABDOMEN: No hepatosplenomegaly, normal bowel sounds, no guarding or rigidity. EXTREMITIES: trace edema noted, pedal pulses palpable. CENTRAL NERVOUS SYSTEM: No focal deficits, tone is normal in all 4 extremities. - Labs CBC & Chem 7: 01/24/18 06:34 01/24/18 06:34 Labs: Microbiology - Last 24 Hours (Table) 01/20/18 07:42 Blood Culture - Preliminary Blood No Growth after 120 hours 01/20/18 07:30 Blood Culture - Preliminary Blood No Growth after 120 hours 01/25/18 07:30 Gram Stain - Final Sputum Sputum Culture - Final 01/23/18 15:00 Urine Culture - Final Urine,Voided Assessment and Plan Assessment: Assessment Pneumonia Acute hypoxic respiratory failure requiring supplemental oxygen Acute exacerbation of CHF, systolic Acute exacerbation of chronic persistent moderate asthma Hypokalemia Elevated troponins PEG, noncompliant with CPAP CPAP History of esophageal cancer History of skin cancer Atrial fibrillation Obesity Iron deficiency anemia Plan Respiratory status stable, discharge planning and process Patient could benefit from rehab on discharge Patient will be reevaluated at [facility] post discharge Medications have been reviewed and will be continued as ordered. Antibiotics Solu-Medrol tapered to oral prednisone Obtain sputum culture Cardiology on consult Hematology/oncology and surgical services on consult Monitor and replace electrolytes Continue with pulmonary hygiene, coughing and deep breathing exercises, and supportive care. Supplemental oxygen to maintain oxygen saturations of 92% or better. Continue nebulizer treatments. GI and DVT prophylaxis. Increase activity as tolerated, PT and OT Strongly recommend compliance for treatment of his PEG with CPAP We will continue to monitor labs/results and adjust treatment as necessary. Further recommendations pending. I performed an examination of the patient and discussed their management with the nurse practitioner. I have reviewed the nurse practitioner's note and agree with the documented findings and plan of care.
[2018-01-25] MEDS: FOLIC ACID 1 MG TAB PO SCH (11:59)
[2018-01-25] MEDS: PANTOPRAZOLE 40 MG TABLET PO SCH (21:15)
[2018-01-25] MEDS: MONTELUKAST 10 MG TAB PO SCH (21:15)
[2018-01-25] MEDS: FUROSEMIDE 20 MG TAB PO SCH (21:15)
[2018-01-25] MEDS: ATORVASTATIN 10 MG TAB PO SCH (21:15)
[2018-01-26] MEDS ORDERED: IPRATROPIUM-ALBUTEROL 3 ML NEB INHALATION PRN (01:27)
[2018-01-26] MEDS: HYDROcodone/APAP 10-325MG 1 EACH TAB PO PRN (02:30)
[2018-01-26] MEDS: LEVOFLOXACIN 750 MG TAB PO SCH (03:55)
[2018-01-26] MEDS: LEVOTHYROXINE 100 MCG TAB PO SCH (06:28)
[2018-01-26] MEDS: CARVEDILOL 3.125 MG TAB PO SCH ×2 (06:28→16:36)
[2018-01-26 06:39] LABS: Albumin 3.3 g/dL (3.5-5.0); Calcium 8.9 mg/dL (8.4-10.2); Total Bilirubin 0.7 mg/dL (0.2-1.3); Total Protein 5.3 g/dL (6.3-8.2)
[2018-01-26 06:54] LABS: Anisocytosis Slight; Basophils # (A) 0.1 k/uL (0-0.2); Basophils % (A) 0 %; Eosinophils # (A) 0.1 k/uL (0-0.7); Eosinophils % (A) 1 %; HCT 27.3 % (39.0-53.0); HGB 8.3 gm/dL (13.0-17.5); Hypochromasia Marked; Lymphocytes # (A) 1.4 k/uL (1.0-4.8); Lymphocytes % (A) 7 %; MCH 27.3 pg (25.0-35.0); MCHC 30.4 g/dL (31.0-37.0); MCV 89.8 fL (80.0-100.0); Mean Platelet Volume 8.4; Monocytes # (A) 2.1 k/uL (0-1.0); Monocytes % (A) 10 %; Neutrophils # (A) 16.2 k/uL (1.3-7.7); Neutrophils % (A) 80 %; Platelet Count 191 k/uL (150-450); RBC 3.04 m/uL (4.30-5.90); RDW 19.5 % (11.5-15.5); WBC 20.4 k/uL (3.8-10.6)
[2018-01-26] MEDS: IPRATROPIUM-ALBUTEROL 3 ML NEB INHALATION SCH ×4 (08:36→20:13)
[2018-01-26] MEDS: BUDESONIDE 0.5 MG/2 ML NEBU INHALATION SCH ×2 (08:40→20:14)
[2018-01-26] MEDS: PIPERACILLIN-TAZOBACTAM 3.375 GM in DEXTROSE/WATER 1 50ML.BAG IVPB SCH ×2 (08:49→16:33)
[2018-01-26] MEDS: CHOLECALCIFEROL 1,000 UNIT TAB PO SCH (08:51)
[2018-01-26] MEDS: AMIODARONE 200 MG TAB PO SCH (08:51)
[2018-01-26] MEDS: FENOFIBRATE 160 MG TAB PO SCH (08:51)
[2018-01-26] MEDS: predniSONE 20 MG TAB PO SCH (08:51)
[2018-01-26] MEDS: DOCUSATE 100 MG CAP PO SCH (08:51)
[2018-01-26] MEDS: FUROSEMIDE 40 MG TAB PO SCH (08:51)
[2018-01-26] MEDS: ASPIRIN 325 MG TAB PO SCH (08:51)
[2018-01-26] MEDS: MECLIZINE 12.5 MG TAB PO SCH (08:52)
[2018-01-26] MEDS ORDERED: FUROSEMIDE 10 MG/ML 4 ML VIAL IV STA (09:08)
--- NOTE | 2018-01-26 09:22 | P.PN ---
Subjective Progress Note Date: 01/26/18 History of present illness: This is a 82-year-old male patient being seen examined and evaluated today on rounds for consultation. This patient is well-known to our services. This patient was seen in our office on Friday. He states that after that he started to come down with some shortness of breath cough and congestion and ended up coming in into the hospital. Chest x-ray was obtained and he was noted to have right-sided infiltrate with increasing lung markings on [place]. [place] [address], elevated troponins of 0.046, hypokalemia of 3.1. He did require 2 L of supplemental oxygen via nasal cannula for oxygen desaturations. He was admitted to the hospital for further evaluation and treatment. This patient does not utilize home oxygen. He is also known to have PEG however is noncompliant and does not use a CPAP. Interval History: 01/21/18- see Dr MITZY Murrell note 01/22/18-patient is being seen examined and evaluated today on rounds. He is resting up in bed on 3 L of supplemental oxygen. States his breathing is improving. Still occasionally have shortness of breath with cough and congestion. Sputum has been okay. He is afebrile denies any further complaints. Has had a good appetite and has been making good urine. All labs and reports have been reviewed. 01/23/18- patient is being seen examined and evaluated today on rounds. He is resting up in bed on 2 L of supplemental oxygen via nasal cannula. His hemoglobin is stable at 7.9. He states he is feeling better today. His Solu- Medrol has been switched over to oral prednisone. CT of the abdomen and pelvis was reviewed and shows no bleed. Shortness of breath continues to improve, patient states he feels close to his baseline. 01/24/18- please see Dr. Ware's note for coverage 01/25/18- patient is being seen examined and evaluated today on rounds. He is resting in bed on supplemental oxygen. He is tearful today. States his breathing is relatively the same. He is afebrile no further complaints. We are also covering for Dr. Menon today 01/26/18-patient is being seen examined and evaluated today on rounds. Patient is resting up in bedside chair on 2 L of supplemental oxygen via nasal cannula. Patient does have some complaints of increased swelling in his lower extremities today. Overall he does feel better today, in regards to his pulmonary status. Less short of breath with exertion than on admission. Discharge planning in progress. All labs and reports have been reviewed. Objective - Vital Signs Vital signs: Vital Signs Temp 98.1 F 01/26/18 08:00 Pulse 74 01/26/18 08:55 Resp 16 01/26/18 08:00 BP 110/59 01/26/18 08:00 Pulse Ox 93 L 01/26/18 08:00 Intake & Output 01/25/18 01/26/18 01/26/18 18:59 06:59 18:59 Intake Total 717 50 240 Output Total 400 375 Balance 317 -325 240 Weight 119 kg Intake: IV 50 Piperacillin-Tazobactam 3 50 .375 gm In Dextrose/Water 1 50ml.bag @ 12.5 mls/hr IVPB Q8HR [facility] Rx#: [id number] Oral 717 240 Output: Urine 400 375 Other: Voiding Method Urinal Urinal Urinal # Voids 1 2 - Exam GENERAL EXAM: Alert, active, comfortable in no apparent distress. HEAD: Normocephalic. EYES: Normal reaction of pupils, equal size. NOSE: Clear with pink turbinates. THROAT: No erythema or exudates. NECK: No masses, no JVD. CHEST: No chest wall deformity. LUNGS: Lungs noted with some, faint expiratory wheeze, improving CVS: S1 and S2 normal with no audible mumurs, regular rhythm. ABDOMEN: No hepatosplenomegaly, normal bowel sounds, no guarding or rigidity. EXTREMITIES: +1-2 edema noted, pedal pulses palpable. CENTRAL NERVOUS SYSTEM: No focal deficits, tone is normal in all 4 extremities. - Labs CBC & Chem 7: 01/26/18 05:34 01/26/18 05:34 Labs: Abnormal Lab Results - Last 24 Hours (Table) 01/21/18 01/26/18 01/26/18 Range/Units 03:36 05:34 05:34 WBC 20.4 H (3.8-10.6) k/uL RBC 3.04 L (4.30-5.90) m/uL Hgb 8.3 L (13.0-17.5) gm/dL Hct 27.3 L (39.0-53.0) % MCHC 30.4 L (31.0-37.0) g/dL RDW 19.5 H (11.5-15.5) % Neutrophils # 16.2 H (1.3-7.7) k/uL Monocytes # 2.1 H (0-1.0) k/uL Chloride 95 L (98-107) mmol/L Carbon Dioxide 32 H (22-30) mmol/L BUN 41 H (9-20) mg/dL Creatinine 1.71 H (0.66-1.25) mg/dL Alkaline Phosphatase 31 L (38-126) U/L Total Protein 5.3 L (6.3-8.2) g/dL Albumin 3.3 L (3.5-5.0) g/dL Albumin (PEP) 3.24 L (3.80-4.90) g/dL Gamma Globulins 0.53 L (0.70-1.50) g/dL Microbiology - Last 24 Hours (Table) 01/20/18 07:42 Blood Culture - Preliminary Blood No Growth after 120 hours 01/20/18 07:30 Blood Culture - Preliminary Blood No Growth after 120 hours 01/25/18 07:30 Gram Stain - Final Sputum Sputum Culture - Final Assessment and Plan Assessment: Assessment Pneumonia Acute hypoxic respiratory failure requiring supplemental oxygen Acute exacerbation of CHF, systolic Acute exacerbation of chronic persistent moderate asthma Hypokalemia Elevated troponins PEG, noncompliant with CPAP CPAP History of esophageal cancer History of skin cancer Atrial fibrillation Obesity Iron deficiency anemia Plan Respiratory status stable, discharge planning and process Patient could benefit from rehab on discharge Patient will be reevaluated at [facility] post discharge Medications have been reviewed and will be continued as ordered. Given additional 40 mg of Lasix IV 1 Antibiotics Prednisone taper Obtain sputum culture Cardiology on consult Hematology/oncology and surgical services on consult Monitor and replace electrolytes Continue with pulmonary hygiene, coughing and deep breathing exercises, and supportive care. Supplemental oxygen to maintain oxygen saturations of 92% or better. Continue nebulizer treatments. GI and DVT prophylaxis. Increase activity as tolerated, PT and OT Strongly recommend compliance for treatment of his PEG with CPAP We will continue to monitor labs/results and adjust treatment as necessary. Further recommendations pending. I performed an examination of the patient and discussed their management with the nurse practitioner. I have reviewed the nurse practitioner's note and agree with the documented findings and plan of care.
[2018-01-26] MEDS: FOLIC ACID 1 MG TAB PO SCH (10:42)
[2018-01-26 16:26] LABS: Methylmalonic Acid 0.24 umol/L (<0.40)
--- NOTE | 2018-01-26 17:36 | P.PN ---
Subjective Progress Note Date: 01/26/18 Principal diagnosis: Esophageal Cancer Patient seen in follow-up today, daughter at bedside, he is resting. No pain since up in chair, increased swelling in BLE and still increased effort breathing Objective - Vital Signs Vital signs: Vital Signs Temp 98 F 01/26/18 12:00 Pulse 80 01/26/18 16:19 Resp 18 01/26/18 12:00 BP 124/58 01/26/18 12:00 Pulse Ox 94 L 01/26/18 12:00 Intake & Output 01/25/18 01/26/18 01/26/18 18:59 06:59 18:59 Intake Total 717 50 480 Output Total 400 375 Balance 317 -325 480 Weight 119 kg Intake: IV 50 Piperacillin-Tazobactam 3 50 .375 gm In Dextrose/Water 1 50ml.bag @ 12.5 mls/hr IVPB Q8HR [facility] Rx#: [id number] Oral 717 480 Output: Urine 400 375 Other: Voiding Method Urinal Urinal Urinal # Voids 1 2 - Constitutional General appearance: Present: cooperative, mild distress - EENT Eyes: Present: EOMI, dentition normal ENT: Present: hard of hearing, NA/AT, thrush - Neck Neck: Present: normal ROM - Respiratory Respiratory: bilateral: diminished, rhonchi (Mild increased Effort ) - Cardiovascular Rhythm: regular Heart sounds: normal: S1, S2 - Gastrointestinal General gastrointestinal: Present: normal bowel sounds - Integumentary Integumentary: Present: pale - Neurologic Neurologic Comment(s): No focal defects Neurologic: Present: CNII-XII intact - Musculoskeletal Musculoskeletal: Present: generalized weakness, strength equal bilaterally - Psychiatric Psychiatric: Present: A&O x's 3, appropriate affect, intact judgment & insight - Labs CBC & Chem 7: 01/26/18 05:34 01/26/18 05:34 Labs: Abnormal Lab Results - Last 24 Hours (Table) 01/21/18 01/26/18 01/26/18 Range/Units 03:36 05:34 05:34 WBC 20.4 H (3.8-10.6) k/uL RBC 3.04 L (4.30-5.90) m/uL Hgb 8.3 L (13.0-17.5) gm/dL Hct 27.3 L (39.0-53.0) % MCHC 30.4 L (31.0-37.0) g/dL RDW 19.5 H (11.5-15.5) % Neutrophils # 16.2 H (1.3-7.7) k/uL Monocytes # 2.1 H (0-1.0) k/uL Chloride 95 L (98-107) mmol/L Carbon Dioxide 32 H (22-30) mmol/L BUN 41 H (9-20) mg/dL Creatinine 1.71 H (0.66-1.25) mg/dL Alkaline Phosphatase 31 L (38-126) U/L Total Protein 5.3 L (6.3-8.2) g/dL Albumin 3.3 L (3.5-5.0) g/dL Albumin (PEP) 3.24 L (3.80-4.90) g/dL Gamma Globulins 0.53 L (0.70-1.50) g/dL Microbiology - Last 24 Hours (Table) 01/25/18 07:30 Gram Stain - Final Sputum Sputum Culture - Final 01/20/18 07:42 Blood Culture - Final Blood No Growth after 144 hours 01/20/18 07:30 Blood Culture - Final Blood No Growth after 144 hours Assessment and Plan Plan: Assessment and Plan (1) Anemia Narrative/Plan: Component of iron deficiency. The implications were discussed in detail with the patient and his family. He was advised that this is suspicious for GI blood loss, especially given his prior history. - The case was extensively discussed with cardiology and the surgical service. Given the possibility of GI blood loss, as well as his prior history, it would be more prudent to hold anticoagulation till the patient has a GI workup done. The surgical service noted that it would be more preferable for the patient to have this done at the [facility], where he is already on follow-up for the same, which is quite reasonable. However the patient needed to be placed back on anticoagulation urgently, then the need for GI evaluation would be more immediate. Case was therefore discussed in detail with cardiology. They confirmed that from their standpoint, it would be okay for the patient to stay off full dose anticoagulation, and remain on aspirin, at least for some weeks. In that case the patient can be discharged on aspirin, and contact the [facility] to schedule a GI workup. On 01/23/18 - The above plan was discussed in detail with the patient and his family, and all the questions answered by Dr. Viveros - He was also started on IV iron supplementation - Follow-up as an outpatient to monitor hemoglobin and assess response after he follows with [facility] for continued treatment Plan. Current Visit: Yes Status: Acute Code(s): D64.9 - ANEMIA, UNSPECIFIED SNOMED Code(s): 894978887 (2) Esophageal cancer Narrative/Plan: The patient had no evidence of recurrence based on EGD in 06/06, as well as PET scan done earlier this year. As noted above, repeat GI workup is recommended based on new finding of iron deficiency anemia. It appears the plan for discharge is tomorrow AM and he will Follow-up with [facility] at that time. Current Visit: Yes Status: Acute Code(s): C15.9 - MALIGNANT NEOPLASM OF ESOPHAGUS, UNSPECIFIED SNOMED Code(s): 792883876 Plan: Defer to the admitting service and other consultants for management of his multiple other medical problems
[2018-01-26] MEDS: ATORVASTATIN 10 MG TAB PO SCH (20:01)
[2018-01-26] MEDS: FUROSEMIDE 20 MG TAB PO SCH (20:01)
[2018-01-26] MEDS: PANTOPRAZOLE 40 MG TABLET PO SCH (20:01)
[2018-01-26] MEDS: MONTELUKAST 10 MG TAB PO SCH (20:01)
--- NOTE | 2018-01-26 20:45 | PN ---
PROGRESS NOTE DATE OF SERVICE: 01/26/2018. HISTORY: This is a white male whose Eliquis is being withheld due to GI bleeding. We are trying to get him an appointment in [place] for an EGD, as they want it done down there as he has a history of esophageal cancer. We are trying to set that up through the office. Possible discharge home tomorrow without Eliquis, just take a full aspirin until he gets the EGD done. Systolic CHF has been fairly stable. Strength is slowly improving, although he is very weak to walk and ambulate. PHYSICAL EXAM: Cardiovascular, S1 and S2. Lungs, transmitted upper airway sounds. GI soft, distended due to obesity. Hematology, 2 to 3+ edema. ASSESSMENT: 1. Systolic congestive heart failure. 2. Acute on chronic anemia. Eliquis has been discontinued as a source of bleeding. Hematoma in his buttocks is improved. Hemoglobin has stabilized with iron infusions. 3. Hypertension. 4. Hypercholesterolemia. 5. History of coronary artery disease. 6. Chronic obstructive pulmonary disease. Continue current treatments. Possible discharge home tomorrow if EGD can be arranged to [place] in the near future. I will send him home for the weekend. MMODL / IJN: [id number] /
[2018-01-26 21:11] VITALS: RESP 18
[2018-01-27] MEDS: PIPERACILLIN-TAZOBACTAM 3.375 GM in DEXTROSE/WATER 1 50ML.BAG IVPB SCH ×2 (00:38→09:13)
[2018-01-27] MEDS: LEVOTHYROXINE 100 MCG TAB PO SCH (06:13)
[2018-01-27] MEDS: CARVEDILOL 3.125 MG TAB PO SCH (06:13)
[2018-01-27 06:14] LABS: Anisocytosis Moderate; Basophils % (A) 0 %; Eosinophils # (A) 0.1 k/uL (0-0.7); Eosinophils % (A) 0 %; HCT 26.6 % (39.0-53.0); HGB 7.8 gm/dL (13.0-17.5); Hypochromasia Marked; Lymphocytes # (A) 1.3 k/uL (1.0-4.8); Lymphocytes % (A) 7 %; MCH 26.7 pg (25.0-35.0); MCHC 29.5 g/dL (31.0-37.0); MCV 90.5 fL (80.0-100.0); Macrocytosis Slight; Mean Platelet Volume 7.8; Monocytes # (A) 1.6 k/uL (0-1.0); Monocytes % (A) 9 %; Neutrophils # (A) 14.3 k/uL (1.3-7.7); Neutrophils % (A) 81 %; Platelet Count 182 k/uL (150-450); RBC 2.94 m/uL (4.30-5.90); RDW 20.6 % (11.5-15.5); WBC 17.7 k/uL (3.8-10.6)
[2018-01-27 06:25] LABS: Albumin 3.2 g/dL (3.5-5.0); Calcium 8.8 mg/dL (8.4-10.2); Potassium 3.8 mmol/L (3.5-5.1); Total Bilirubin 0.6 mg/dL (0.2-1.3); Total Protein 5.2 g/dL (6.3-8.2)
[2018-01-27] MEDS: BUDESONIDE 0.5 MG/2 ML NEBU INHALATION SCH (08:29)
[2018-01-27] MEDS: IPRATROPIUM-ALBUTEROL 3 ML NEB INHALATION SCH ×2 (08:29→12:25)
[2018-01-27] MEDS ORDERED: predniSONE 50 MG TAB PO SCH (09:00)
[2018-01-27] MEDS: AMIODARONE 200 MG TAB PO SCH (09:15)
[2018-01-27] MEDS: CHOLECALCIFEROL 1,000 UNIT TAB PO SCH (09:15)
[2018-01-27] MEDS: ASPIRIN 325 MG TAB PO SCH (09:15)
[2018-01-27] MEDS: DOCUSATE 100 MG CAP PO SCH (09:15)
[2018-01-27] MEDS: FUROSEMIDE 40 MG TAB PO SCH (09:16)
[2018-01-27] MEDS: FENOFIBRATE 160 MG TAB PO SCH (09:16)
[2018-01-27] MEDS: MECLIZINE 12.5 MG TAB PO SCH (09:16)
[2018-01-27] MEDS: FOLIC ACID 1 MG TAB PO SCH (09:17)
--- NOTE | 2018-01-27 09:25 | P.PN ---
Subjective Progress Note Date: 01/27/18 History of present illness: This is a 82-year-old male patient being seen examined and evaluated today on rounds for consultation. This patient is well-known to our services. This patient was seen in our office on Friday. He states that after that he started to come down with some shortness of breath cough and congestion and ended up coming in into the hospital. Chest x-ray was obtained and he was noted to have right-sided infiltrate with increasing lung markings [place]. [place] [address], elevated troponins of 0.046, hypokalemia of 3.1. He did require 2 L of supplemental oxygen via nasal cannula for oxygen desaturations. He was admitted to the hospital for further evaluation and treatment. This patient does not utilize home oxygen. He is also known to have PEG however is noncompliant and does not use a CPAP. Interval History: 01/21/18- see Dr MITZY Murrell note 01/22/18-patient is being seen examined and evaluated today on rounds. He is resting up in bed on 3 L of supplemental oxygen. States his breathing is improving. Still occasionally have shortness of breath with cough and congestion. Sputum has been okay. He is afebrile denies any further complaints. Has had a good appetite and has been making good urine. All labs and reports have been reviewed. 01/23/18- patient is being seen examined and evaluated today on rounds. He is resting up in bed on 2 L of supplemental oxygen via nasal cannula. His hemoglobin is stable at 7.9. He states he is feeling better today. His Solu- Medrol has been switched over to oral prednisone. CT of the abdomen and pelvis was reviewed and shows no bleed. Shortness of breath continues to improve, patient states he feels close to his baseline. 01/24/18- please see Dr. Ware's note for coverage 01/25/18- patient is being seen examined and evaluated today on rounds. He is resting in bed on supplemental oxygen. He is tearful today. States his breathing is relatively the same. He is afebrile no further complaints. We are also covering for Dr. Menon today 01/26/18-patient is being seen examined and evaluated today on rounds. Patient is resting up in bedside chair on 2 L of supplemental oxygen via nasal cannula. Patient does have some complaints of increased swelling in his lower extremities today. Overall he does feel better today, in regards to his pulmonary status. Less short of breath with exertion than on admission. Discharge planning in progress. All labs and reports have been reviewed. 01/27/18- patient being seen examined and evaluated today on rounds. He is resting up in bedside chair states he feels good today. He is on 2 L of supplemental oxygen, however the nurse states this is for comfort. Patient will need a home oxygen assessment prior to discharge. We'll trial the patient to see if he needs oxygen with ambulation. He states he is feeling much better today. Looking forward to discharge. Afebrile no further complaints. Objective - Vital Signs Vital signs: Vital Signs Temp 97.5 F L 01/27/18 04:00 Pulse 98 01/27/18 08:47 Resp 18 01/27/18 04:00 BP 91/59 01/27/18 04:00 Pulse Ox 93 L 01/27/18 04:00 Intake & Output 01/26/18 01/27/18 01/27/18 18:59 06:59 18:59 Intake Total 720 50 360 Output Total 850 Balance 720 -800 360 Weight 119.7 kg Intake: IV 50 Piperacillin-Tazobactam 3 50 .375 gm In Dextrose/Water 1 50ml.bag @ 12.5 mls/hr IVPB Q8HR [facility] Rx#: [id number] Oral 720 360 Output: Urine 850 Other: Voiding Method Urinal Urinal # Voids 3 - Exam GENERAL EXAM: Alert, active, comfortable in no apparent distress. HEAD: Normocephalic. EYES: Normal reaction of pupils, equal size. NOSE: Clear with pink turbinates. THROAT: No erythema or exudates. NECK: No masses, no JVD. CHEST: No chest wall deformity. LUNGS: Lungs noted with some, faint expiratory wheeze, improving CVS: S1 and S2 normal with no audible mumurs, regular rhythm. ABDOMEN: No hepatosplenomegaly, normal bowel sounds, no guarding or rigidity. EXTREMITIES: +1-2 edema noted, pedal pulses palpable. CENTRAL NERVOUS SYSTEM: No focal deficits, tone is normal in all 4 extremities. - Labs CBC & Chem 7: 01/27/18 05:31 01/27/18 05:31 Labs: Abnormal Lab Results - Last 24 Hours (Table) 01/27/18 01/27/18 Range/Units 05:31 05:31 WBC 17.7 H (3.8-10.6) k/uL RBC 2.94 L (4.30-5.90) m/uL Hgb 7.8 L (13.0-17.5) gm/dL Hct 26.6 L (39.0-53.0) % MCHC 29.5 L (31.0-37.0) g/dL RDW 20.6 H (11.5-15.5) % Neutrophils # 14.3 H (1.3-7.7) k/uL Monocytes # 1.6 H (0-1.0) k/uL Chloride 95 L (98-107) mmol/L Carbon Dioxide 35 H (22-30) mmol/L BUN 42 H (9-20) mg/dL Creatinine 1.57 H (0.66-1.25) mg/dL Glucose 101 H (74-99) mg/dL Alkaline Phosphatase 29 L (38-126) U/L Total Protein 5.2 L (6.3-8.2) g/dL Albumin 3.2 L (3.5-5.0) g/dL Microbiology - Last 24 Hours (Table) 01/25/18 07:30 Gram Stain - Final Sputum Sputum Culture - Final 01/20/18 07:42 Blood Culture - Final Blood No Growth after 144 hours 01/20/18 07:30 Blood Culture - Final Blood No Growth after 144 hours Assessment and Plan Assessment: Assessment Pneumonia Acute hypoxic respiratory failure requiring supplemental oxygen Acute exacerbation of CHF, systolic Acute exacerbation of chronic persistent moderate asthma Hypokalemia Elevated troponins PEG, noncompliant with CPAP CPAP History of esophageal cancer History of skin cancer Atrial fibrillation Obesity Iron deficiency anemia Plan Patient cleared from pulmonary standpoint for discharge Respiratory status stable, discharge planning in process Home oxygen assessment Patient could benefit from rehab on discharge Patient will be reevaluated at [facility] post discharge Medications have been reviewed and will be continued as ordered. Antibiotics Prednisone taper Obtain sputum culture Cardiology on consult Hematology/oncology and surgical services on consult Monitor and replace electrolytes Continue with pulmonary hygiene, coughing and deep breathing exercises, and supportive care. Supplemental oxygen to maintain oxygen saturations of 92% or better. Continue nebulizer treatments. GI and DVT prophylaxis. Increase activity as tolerated, PT and OT Strongly recommend compliance for treatment of his PEG with CPAP We will continue to monitor labs/results and adjust treatment as necessary. Further recommendations pending. I performed an examination of the patient and discussed their management with the nurse practitioner. I have reviewed the nurse practitioner's note and agree with the documented findings and plan of care.
--- NOTE | 2018-01-27 13:13 | DS ---
DISCHARGE SUMMARY DISCHARGE MEDICATION: 1. Aspirin 325 mg daily. 2. Lasix 20 mg and 40 mg once a day, total 60 mg a day. 3. Mucinex 600 b.i.d. 4. Levaquin for 4 days, 750 mg q.48 hours x4 doses. 5. Prednisone 50 mg for 2 days, 40 mg for 2 days, 30 mg for 2 days, 20 mg for 2 days, 10 mg for 2 days. 6. Claritin 10 mg daily. 7. Zocor 20 mg daily. 8. Singular 10 mg daily. 9. Benefiber 134 mg daily. 10.Vitamin D3 two thousand units daily. 11.[place] 10/325 one every 6 hours p.r.n. daily. 12.Folic acid 1 mg daily. 13.Colace 100 mg daily. 14.Synthroid 100 mcg daily. 15.Cordarone 200 mg daily. 16.DuoNeb updraft q.i.d. 17.Prilosec 40 mg daily. 18.Coreg 3.125 b.i.d. 19.Pulmicort 0.5 mg b.i.d. nebulizer solution. 20.Meclizine 12.5 b.i.d. 21.Flovent 0.1 mg daily. CONDITION: Stable. PROGNOSIS: Guarded. DISCHARGE DIAGNOSIS: 1. Acute on chronic anemia, significant anemia requiring blood transfusion. 2. Systolic congestive heart failure exacerbation, chronic obstructive pulmonary disease exacerbation, right lower lobe pneumonia. 3. Asthma exacerbation. 4. Hypokalemia. 5. Generalized weakness. 6. Lumbar disc disease with leg weakness. 7. Hypothyroidism. 8. Hypertension. 9. Allergic rhinitis. HOSPITAL COURSE: White male came into the hospital with systolic CHF, COPD, asthma exacerbation, was found to be severely anemic. Blood transfusion was given. Possible scopes were discussed. Iron infusions were given for low hemoglobin. He will be set up for outpatient EGD at [facility], systolic CHF and pneumonia as well as COPD were all treated. Patient stabilized to the best of our ability. He will need extended rehab as he has gotten very weak. He will remain on his home medicines as mentioned above under Dr. Michael Menon's care up at the rehab center. MMODL / IJN: [id number] /
--- NOTE | 2018-01-27 13:43 | HP ---
HISTORY AND PHYSICAL CHIEF COMPLAINT: Chief complaint back on 01/20/2018 is an 82-year-old white male due to shortness of breath, cough, congestion, near syncope. He has increased lung markings in the right side of his lungs. He has elevated with BNP of 29,500, elevated troponins, hypokalemia, on oxygenation, COPD, right lower lobe pneumonia, congestive heart failure systolic in nature, admitted for also sleep apnea, noncompliant with CPAP. REVIEW OF SYSTEM: Fourteen point review of systems negative except for mentioned in HPI. PAST MEDICAL HISTORY: Atrial fibrillation, asthma, COPD, coronary artery disease, esophageal cancer, heart failure, systolic, dyslipidemia, hypertension, myocardial infarction, chronic pneumonia, renal disease, sleep apnea, SVT, sleep apnea not on a sleep machine, chronic kidney disease stage III, peripheral vascular disease, hiatal hernia, skin cancer, recent lumbar disc surgery with lumbar disc disease with his legs given out with leg weakness, AICD, appendectomy, bowel resection, cholecystectomy, CABG surgery, esophageal removal of esophageal cancer through EGD, hernia repair, heart catheterization, bowel resections x2, CABG 1994, laser surgery to the lower back spine and further lumbar back surgery, pacemaker permanent. FAMILY HISTORY: Father myocardial fraction 73. Mother CVA in 80s. HOME MEDICATIONS: 1. Cordarone 200 mg daily. 2. Eliquis 5 mg b.i.d. 3. Colace 100 mg daily. 4. Folic acid 1 mg daily. 5. [place] 10/325 every 6 p.r.n.. 6. Aspirin 81 mg daily. 7. Fenofibrate 134 daily. 8. Vitamin D3, 2000 daily. 9. Zocor 20 mg daily. 10.Singulair 10 mg daily. 11.Claritin 10 mg daily. 12.DuoNeb q.i.d. 13.Coreg b.i.d.. 14.Meclizine 12.5 b.i.d. 15.Florinef 0.1 mg daily. 16.Lasix 20 mg b.i.d. 17.Pulmicort 0.5 b.i.d. 18.Synthroid 100 mcg daily. ALLERGIES: LORAZEPAM. PHYSICAL EXAMINATION: Vital signs are stable. Please see further orders. He is alert, oriented x3. Skin looks pale, poor skin turgor. Chest is scattered wheeze, rales at the base. Lungs rales at the bases. HEART: S1, S2. Irregular irregular rhythm. Abdomen is soft, distended due to obesity. Positive ventral hernias x2. EXTREMITIES: 2 to 3+ pedal edema. [employer]OR: Cranial nerves are intact. . LABS: Labs show a white count 11.5, hemoglobin is 8.3. Sodium 137, potassium 3.1, BUN of 18, creatinine 1.2. ASSESSMENT: 1. Acute hypoxemic respiratory failure secondary to pneumonia and congestive heart failure systolic in nature. 2. Asthma exacerbation. 3. Hypokalemia. 4. Elevated troponins. 5. Obstructive sleep apnea, noncompliant with CPAP. 6. History of esophageal cancer. 7. History of coronary artery disease. 8. History of pacemaker. 9. History of atrial fibrillation. 10.Skin cancer. 11.Obesity. 12.Esophageal cancer. PLAN: IV antibiotics. IV diuresis. Florinef for hypotension will be continued. Pulmonary and Cardiology consults. MMODL / IJN: [id number] /
[2018-01-27 13:48] VITALS: BMI 35.8
[2018-01-27 14:11] VITALS: BP 109/62; PULSE 88; TEMP 97.2
[2018-01-28] MEDS ORDERED: LEVOFLOXACIN 750 MG TAB PO SCH (04:00)
== END 2018-01-27 15:08 | DRG 291 ==
LOC: EC 03:07 → 6ICU 06:35 → 6SEL 01-23 06:00
PROVIDERS: ADMIT Family Medicine; ATTEND Family Medicine
DX: I13.0 Hypertensive heart and chronic kidney disease with heart failure and stage 1 through stage 4 chronic kidney disease, or unspecified chronic kidney disease (principal); J18.9 Pneumonia, unspecified organism; J96.01 Acute respiratory failure with hypoxia; I50.23 Acute on chronic systolic (congestive) heart failure; J44.0 Chronic obstructive pulmonary disease with (acute) lower respiratory infection; J44.1 Chronic obstructive pulmonary disease with (acute) exacerbation; J45.41 Moderate persistent asthma with (acute) exacerbation; K92.2 Gastrointestinal hemorrhage, unspecified; I95.9 Hypotension, unspecified; I25.5 Ischemic cardiomyopathy; I48.2 Chronic atrial fibrillation; E03.9 Hypothyroidism, unspecified; E66.9 Obesity, unspecified; D50.9 Iron deficiency anemia, unspecified; E78.00 Pure hypercholesterolemia, unspecified; E78.5 Hyperlipidemia, unspecified; E87.6 Hypokalemia; G47.33 Obstructive sleep apnea (adult) (pediatric); I25.10 Atherosclerotic heart disease of native coronary artery without angina pectoris; I25.2 Old myocardial infarction; I73.9 Peripheral vascular disease, unspecified; K21.9 Gastro-esophageal reflux disease without esophagitis; M51.36 Other intervertebral disc degeneration, lumbar region; N18.3 Chronic kidney disease, stage 3 (moderate); R26.9 Unspecified abnormalities of gait and mobility; N20.0 Calculus of kidney; G89.29 Other chronic pain; K44.9 Diaphragmatic hernia without obstruction or gangrene; R77.9 Abnormality of plasma protein, unspecified; M54.5 Low back pain; K43.9 Ventral hernia without obstruction or gangrene; K57.90 Diverticulosis of intestine, part unspecified, without perforation or abscess without bleeding; S30.0XXA Contusion of lower back and pelvis, initial encounter; Z68.35 Body mass index [BMI] 35.0-35.9, adult; Z79.01 Long term (current) use of anticoagulants; Z79.82 Long term (current) use of aspirin; Z79.899 Other long term (current) drug therapy; Z79.890 Hormone replacement therapy; Z88.8 Allergy status to other drugs, medicaments and biological substances; Z86.14 Personal history of Methicillin resistant Staphylococcus aureus infection; Z95.810 Presence of automatic (implantable) cardiac defibrillator; Z91.19 Patient's noncompliance with other medical treatment and regimen; Z85.01 Personal history of malignant neoplasm of esophagus; Z85.828 Personal history of other malignant neoplasm of skin; Z90.49 Acquired absence of other specified parts of digestive tract; Z95.1 Presence of aortocoronary bypass graft; Z87.891 Personal history of nicotine dependence; Z87.01 Personal history of pneumonia (recurrent); Z86.010 Personal history of colon polyps; Z91.81 History of falling; Z82.3 Family history of stroke; Z82.49 Family history of ischemic heart disease and other diseases of the circulatory system; W18.30XA Fall on same level, unspecified, initial encounter; Y92.9 Unspecified place or not applicable
CPT/HCPCS: 36415; 71045; 74177; 80048; 80053; 81003; 82550; 82553; 82607; 82728; 82747; 83540; 83550; 83735; 83880; 83883; 83921; 84100; 84132; 84165; 84484; 85025; 85027; 85045; 85379; 85610; 85730; 86334; 87040; 87070; 87086; 87205; 93005; 94640; 94760; 96365; 96367; 99285